=== PATIENT | female | born 1965 | race Caucasian/White ===

== ENCOUNTER 2017-03-04 21:30 | Emergency (ER) | payer MEDICARE, MEDICAID ==
[~2017-03-04] VITALS: Ht 162.6 cm; Wt 113.4 kg
[2017-03-04] MEDS ORDERED: BACL10TA PO (21:45)
[2017-03-04] MEDS ORDERED: LEVO175T5 PO (21:45)
[2017-03-04] MEDS ORDERED: OMEP20CA12 PO (21:45)
[2017-03-04] MEDS ORDERED: HYDR-3816 PO (21:45)
[2017-03-04] MEDS ORDERED: DULO60CA58 PO (21:45)
[2017-03-04] MEDS ORDERED: RT-ALBUINH INH (21:45)
[2017-03-04] MEDS ORDERED: ATOR40TA70 PO (21:45)
[2017-03-04] MEDS ORDERED: DILT240C87 PO (21:45)
[2017-03-04] MEDS ORDERED: LISI40TA PO (21:45)
[2017-03-04] MEDS ORDERED: HYDR12.5 PO (21:45)
[2017-03-04] MEDS ORDERED: TIOT18CA2 INH (21:45)
[2017-03-04] MEDS ORDERED: METO50TA2 PO (21:45)
[2017-03-04] MEDS ORDERED: MELO7.5T46 PO (21:45)
[2017-03-04] MEDS ORDERED: BUDE10.2 INH (21:45)
--- NOTE | 2017-03-04 23:15 | ED Lower Extremity ---
General Chief Complaint: Lower Extremity Stated Complaint: L LEG PAIN Nursing Triage Note: C/O POSTERIOR LEFT KNEE PAIN X3HRS. NO KNOWN INJURY Nursing Sepsis Screen: No Definite Risk Source: patient Exam Limitations: no limitations History of Present Illness Time seen by provider: 21:53 Initial Comments Patient presents with complaint of posterior left knee pain for about the past 3 hours. She denies any injury or strain. She was walking in the house at the time of onset. She denies any prior problems with this knee. Allergies and Home Medications Allergies Coded Allergies: Penicillins (Verified Allergy, Unknown, 03/04/17) Home Medications Albuterol Sulfate 1 Puff Puff, 1 INH INH UD, #18 (Reported) Atorvastatin Calcium 40 Mg Tablet, 1 TAB PO UD, #90 (Reported) Baclofen 10 Mg Tablet, 1 TAB PO UD, #30 (Reported) Budesonide/Formoterol Fumarate 10.2 Gm Hfa.aer.ad, 1 INH INH UD, #31 (Reported) Diltiazem HCl 240 Mg Capsule.er, 1 CAP PO UD, #90 (Reported) Duloxetine HCl 60 Mg Capsule.dr, 1 CAP PO UD, #90 (Reported) Hydrochlorothiazide 12.5 Mg Capsule, 1 CAP PO UD, #90 (Reported) Hydrocodone/Acetaminophen 1 Each Tablet, 1 TAB PO UD, #120 (Reported) Levothyroxine Sodium 175 Mcg Tablet, 1 TAB PO UD, #30 (Reported) Lisinopril 40 Mg Tablet, 1 TAB PO UD, #90 (Reported) Meloxicam 7.5 Mg Tablet, 1 TAB PO UD, #90 (Reported) Metoprolol Tartrate 50 Mg Tablet, 1 TAB PO UD, #270 (Reported) Omeprazole 20 Mg Capsule.dr, 1 CAP PO UD, #90 (Reported) Tiotropium [place] 1 Inh Aerp, 1 INH INH UD, #90 (Reported) Constitutional: no symptoms reported EENTM: no symptoms reported Respiratory: no symptoms reported Cardiovascular: no symptoms reported Gastrointestinal: no symptoms reported Genitourinary: no symptoms reported : No Musculoskeletal: see HPI Skin: no symptoms reported Psychiatric/Neurological: No Symptoms Reported Past Zjjcabx-Qrgutl-Jggqfz Hx Patient Social History Alcohol Use: Denies Use Recreational Drug Use: No Smoking Status: Never a Smoker 2nd Hand Smoke Exposure: No Recent Foreign Travel: No Contact w/Someone Who Travel: No Recent Infectious Disease Expo: No Recent Hopitalizations: No Immunizations Up To Date Tetanus Booster (TDap): Unknown Seasonal Allergies Seasonal Allergies: No Surgeries HX Surgeries: Yes (HERNIA, FOOT) Surgeries: Gallbladder, Hysterectomy, Orthopedic Respiratory Hx Respiratory Disorders: Yes (pulmonary hypertension) Respiratory Disorders: Asthma Cardiovascular Hx Cardiac Disorders: Yes (pulmonary hypertension, tachycardia) Cardiac Disorders: High Cholesterol, Hypertension Neurological Hx Neurological Disorders: Yes Neurological Disorders: Neuropathy (right lower extremity) Reproductive System : No 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 Genitourinary Hx Genitourinary Disorders: No Gastrointestinal Hx Gastrointestinal Disorders: Yes Gastrointestinal Disorders: Gastroesophageal Reflux Musculoskeletal Hx Musculoskeletal Disorders: Yes Musculoskeletal Disorders: Arthritis, Fibromyalgia Endocrine Hx Endocrine Disorders: Yes Endocrine Disorders: Hypothyroidsim HEENT HX ENT Disorders: No Cancer Hx Cancer: No Psychosocial Hx Psychiatric Problems: Yes Behavioral Health Disorders: Anxiety Integumentary HX Skin/Integumentary Disorder: No Blood Transfusions Hx Blood Disorders: No Physical Exam Vital Signs Vital Sign - Last 12Hours 03/04/17 03/04/17 21:45 23:20 Temp 97.7 Pulse 127 Resp 18 B/P (MAP) 177/103 Pulse Ox 97 O2 Delivery Room Air O2 Flow Rate 2.00 Capillary Refill : Less Than 3 Seconds General Appearance: WD/WN, no apparent distress, obese HEENT: PERRL/EOMI, normal ENT inspection Cardiovascular: regular rate, rhythm, no edema, no murmur Respiratory: lungs clear, normal breath sounds, no respiratory distress, no accessory muscle use Hips: left hip normal inspection Legs: left leg other (pain also present in the proximal calf with home and test. 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 Report not available. No acute abnormalities appreciated. Diagonstic Imaging: Ultrasound Plain Films/CT/US/NM/MRI: leg Comments Ultrasound of the left leg report reviewed. No evidence of DVT or Valdez's cyst. Departure Impression Impression: Primary Impression: Posterior left knee pain Disposition: HOME, SELF-CARE Condition: Improved Departure-Patient Inst. Decision time for Depature: 23:05 Referrals: NO,LOCAL PHYSICIAN (PCP/Family) Primary Care Physician Patient Instructions: NO INSTRUCTIONS GIVEN Add. Discharge Instructions: You may continue taking hydrocodone for pain. Rest, elevation, and icing in 20 minute intervals may also be helpful. Follow-up with your primary care provider if not improving over the next couple of days. All discharge instructions reviewed with patient and/or family. Voiced understanding. EVY VU MD Mar 04, 2017 23:14
[2017-03-04 23:20] VITALS: BP 135/66
--- NOTE | 2017-03-05 08:03 | Diagnostic Imaging Report ---
PROCEDURE: US left lower extremity venous. TECHNIQUE: Multiple real-time grayscale images were obtained over the left lower extremity in various projections. Additional duplex Doppler and color Doppler images were also obtained. INDICATION: Left leg pain. COMPARISON: None. TECHNIQUE: The left lower extremity deep venous system was interrogated from the common femoral vein through the popliteal vein. These images were assessed for grayscale appearance, color and spectral Doppler blood flow, compression, and augmentation. FINDINGS: There is no evidence of intraluminal filling defect. Normal compression and augmentation is noted throughout. Soft tissues are unremarkable. IMPRESSION: 1. No sonographic evidence of deep venous thrombosis in the left lower extremity. Dictated by: Dictated on workstation # [id number]
--- NOTE | 2017-03-05 08:06 | Diagnostic Imaging Report ---
3 views of the left knee. INDICATION: Left knee pain. FINDINGS: There is no fracture, dislocation, or radiopaque foreign body. There is mild tricompartment osteophyte formation seen. No significant effusion is identified. IMPRESSION: Mild osteoarthritis. Dictated by: Dictated on workstation # [id number]
== END 2017-03-04 23:17 | disposition home or self-care (01) ==
LOC: EDUNIT# 21:30 → ER 21:31
DX: M79.662 Pain in left lower leg (principal); I10 Essential (primary) hypertension; Z79.899 Other long term (current) drug therapy
CPT/HCPCS: 73562; 99283

== ENCOUNTER → 2018-06-09 | Outpatient (CLI) | payer MEDICARE, MEDICAID ==
[~2018-06-09] MED LIST: ATOR40TA70 PO; BACL10TA PO; BUDE10.2 INH; DILT240C87 PO; DULO60CA58 PO; HYDR-34 PO; HYDR12.5 PO; LEVO175T5 PO; LISI40TA PO; MELO7.5T46 PO; METO50TA15 PO; OMEP20CA12 PO; RT-ALBUINH INH; TIOT18CA2 INH
[2018-06-09 16:23] LABS: BASOPHILS % (AUTO) 0 % (0-10); EOSINOPHILS # (AUTO) 0.1 10^3/uL (0.0-0.3); EOSINOPHILS % (AUTO) 2 % (0-10); HEMATOCRIT 28 % (35-52); HEMOGLOBIN 8.6 G/DL (11.5-16.0); LYMPHOCYTES # (AUTO) 1.4 X 10^3 (1.0-4.0); LYMPHOCYTES % (AUTO) 25 % (12-44); MEAN CORPUSCULAR HEMOGLOBIN 30 PG (25-34); MEAN CORPUSCULAR HGB CONC 30 G/DL (32-36); MEAN CORPUSCULAR VOLUME 99 FL (80-99); MEAN PLATELET VOLUME 11.1 FL (7.4-10.4); MONOCYTES # (AUTO) 0.5 X 10^3 (0.0-1.0); MONOCYTES % (AUTO) 9 % (0-12); NEUTROPHILS # (AUTO) 3.6 X 10^3 (1.8-7.8); NEUTROPHILS % (AUTO) 65 % (42-75); PLATELET COUNT 275 10^3/uL (130-400); RED BLOOD COUNT 2.86 10^6/uL (4.35-5.85); WHITE BLOOD COUNT 5.5 10^3/uL (4.3-11.0)
[2018-06-09 16:36] LABS: ALANINE AMINOTRANSFERASE 40 U/L (0-55); ALBUMIN 2.5 GM/DL (3.2-4.5); ALKALINE PHOSPHATASE 115 U/L (40-136); BILIRUBIN,TOTAL 0.2 MG/DL (0.1-1.0); BUN/CREATININE RATIO 20; CALCIUM 8.4 MG/DL (8.5-10.1); CARBON DIOXIDE 27 MMOL/L (21-32); CHLORIDE 102 MMOL/L (98-107); CREATININE SERUM 0.65 MG/DL (0.60-1.30); GFR ESTIMATED > 60; GLUCOSE 103 MG/DL (70-105); POTASSIUM 3.8 MMOL/L (3.6-5.0); SODIUM 138 MMOL/L (135-145); TOTAL PROTEIN 6.6 GM/DL (6.4-8.2)
== END ==
LOC: HH 08:00
PROVIDERS: ATTEND Internal Medicine
DX: N73.9 Female pelvic inflammatory disease, unspecified (principal)
CPT/HCPCS: 80053; 85025

== ENCOUNTER → 2018-06-16 | Outpatient (CLI) | payer MEDICARE, MEDICAID ==
[2018-06-16 14:28] LABS: BASOPHILS % (AUTO) 0 % (0-10); EOSINOPHILS # (AUTO) 0.1 10^3/uL (0.0-0.3); EOSINOPHILS % (AUTO) 3 % (0-10); HEMATOCRIT 29 % (35-52); HEMOGLOBIN 8.6 G/DL (11.5-16.0); LYMPHOCYTES # (AUTO) 1.1 X 10^3 (1.0-4.0); LYMPHOCYTES % (AUTO) 24 % (12-44); MEAN CORPUSCULAR HEMOGLOBIN 29 PG (25-34); MEAN CORPUSCULAR HGB CONC 29 G/DL (32-36); MEAN CORPUSCULAR VOLUME 99 FL (80-99); MEAN PLATELET VOLUME 10.3 FL (7.4-10.4); MONOCYTES # (AUTO) 0.3 X 10^3 (0.0-1.0); MONOCYTES % (AUTO) 7 % (0-12); NEUTROPHILS # (AUTO) 3.1 X 10^3 (1.8-7.8); NEUTROPHILS % (AUTO) 67 % (42-75); PLATELET COUNT 247 10^3/uL (130-400); RED BLOOD COUNT 2.97 10^6/uL (4.35-5.85); RED CELL DISTRIBUTION WIDTH 14.9 % (10.0-14.5); WHITE BLOOD COUNT 4.6 10^3/uL (4.3-11.0)
[2018-06-16 14:47] LABS: ALANINE AMINOTRANSFERASE 18 U/L (0-55); ALBUMIN 2.6 GM/DL (3.2-4.5); ALKALINE PHOSPHATASE 96 U/L (40-136); BILIRUBIN,TOTAL 0.3 MG/DL (0.1-1.0); BUN/CREATININE RATIO 19; CALCIUM 8.6 MG/DL (8.5-10.1); CARBON DIOXIDE 28 MMOL/L (21-32); CHLORIDE 107 MMOL/L (98-107); CREATININE SERUM 0.62 MG/DL (0.60-1.30); GFR ESTIMATED > 60; GLUCOSE 84 MG/DL (70-105); POTASSIUM 3.4 MMOL/L (3.6-5.0); SODIUM 141 MMOL/L (135-145); TOTAL PROTEIN 6.7 GM/DL (6.4-8.2)
== END ==
LOC: HH 08:00
PROVIDERS: ATTEND Internal Medicine
DX: N73.9 Female pelvic inflammatory disease, unspecified (principal)
CPT/HCPCS: 80053; 85025

== ENCOUNTER → 2018-06-23 | Outpatient (CLI) | payer MEDICARE, MEDICAID ==
[2018-06-23 17:47] LABS: BASOPHILS % (AUTO) 0 % (0-10); EOSINOPHILS # (AUTO) 0.2 10^3/uL (0.0-0.3); EOSINOPHILS % (AUTO) 4 % (0-10); HEMATOCRIT 29 % (35-52); HEMOGLOBIN 8.9 G/DL (11.5-16.0); LYMPHOCYTES # (AUTO) 1.5 X 10^3 (1.0-4.0); LYMPHOCYTES % (AUTO) 33 % (12-44); MEAN CORPUSCULAR HEMOGLOBIN 29 PG (25-34); MEAN CORPUSCULAR HGB CONC 30 G/DL (32-36); MEAN CORPUSCULAR VOLUME 96 FL (80-99); MEAN PLATELET VOLUME 10.3 FL (7.4-10.4); MONOCYTES # (AUTO) 0.4 X 10^3 (0.0-1.0); MONOCYTES % (AUTO) 9 % (0-12); NEUTROPHILS # (AUTO) 2.5 X 10^3 (1.8-7.8); NEUTROPHILS % (AUTO) 54 % (42-75); PLATELET COUNT 276 10^3/uL (130-400); RED BLOOD COUNT 3.05 10^6/uL (4.35-5.85); RED CELL DISTRIBUTION WIDTH 14.3 % (10.0-14.5); WHITE BLOOD COUNT 4.6 10^3/uL (4.3-11.0)
[2018-06-23 18:07] LABS: ALANINE AMINOTRANSFERASE 13 U/L (0-55); ALBUMIN 2.5 GM/DL (3.2-4.5); ALKALINE PHOSPHATASE 78 U/L (40-136); BILIRUBIN,TOTAL < 0.1 MG/DL (0.1-1.0); BUN/CREATININE RATIO 16; CALCIUM 8.5 MG/DL (8.5-10.1); CARBON DIOXIDE 30 MMOL/L (21-32); CHLORIDE 104 MMOL/L (98-107); CREATININE SERUM 0.62 MG/DL (0.60-1.30); GFR ESTIMATED > 60; GLUCOSE 98 MG/DL (70-105); POTASSIUM 3.6 MMOL/L (3.6-5.0); SODIUM 140 MMOL/L (135-145); TOTAL PROTEIN 6.4 GM/DL (6.4-8.2)
== END ==
LOC: HH 08:00
PROVIDERS: ATTEND Family Medicine
DX: N73.9 Female pelvic inflammatory disease, unspecified (principal)
CPT/HCPCS: 80053; 85025

== ENCOUNTER → 2019-05-12 | Outpatient (CLI) | payer MEDICARE, MEDICAID ==
[~2019-05-12] MED LIST changes: +CATHETER FLUSH 10 ML SYR IV PRN; +DIATRIZOATE MEGLUM/SODIUM 37% 120 ML (GASTROGRAFIN) PO ONE; +HOLD METFORMIN - RECEIVED CONTRAST 20 ML VIAL IV SCH; +IOHEXOL 350 MG/ML 100 ML (OMNIPAQUE 350) VIAL IV ONE; +NS 100 ML (IVPB) BAG IV ONE
[2019-05-12 09:45] LABS: BASOPHILS % (AUTO) 0 % (0-10); EOSINOPHILS # (AUTO) 0.2 10^3/uL (0.0-0.3); EOSINOPHILS % (AUTO) 3 % (0-10); HEMATOCRIT 43 % (35-52); LYMPHOCYTES # (AUTO) 2.6 X 10^3 (1.0-4.0); LYMPHOCYTES % (AUTO) 32 % (12-44); MEAN CORPUSCULAR HEMOGLOBIN 29 PG (25-34); MEAN CORPUSCULAR HGB CONC 30 G/DL (32-36); MEAN CORPUSCULAR VOLUME 96 FL (80-99); MEAN PLATELET VOLUME 9.8 FL (7.4-10.4); MONOCYTES # (AUTO) 0.6 X 10^3 (0.0-1.0); MONOCYTES % (AUTO) 8 % (0-12); NEUTROPHILS # (AUTO) 4.6 X 10^3 (1.8-7.8); NEUTROPHILS % (AUTO) 57 % (42-75); PLATELET COUNT 282 10^3/uL (130-400); RED CELL DISTRIBUTION WIDTH 13.8 % (10.0-14.5); WHITE BLOOD COUNT 8.1 10^3/uL (4.3-11.0)
[2019-05-12 09:56] LABS: POTASSIUM 3.8 MMOL/L (3.6-5.0); SODIUM 139 MMOL/L (135-145)
[2019-05-12 09:57] LABS: ALANINE AMINOTRANSFERASE 12 U/L (0-55); ALBUMIN 3.6 GM/DL (3.2-4.5); ALKALINE PHOSPHATASE 111 U/L (40-136); BILIRUBIN,TOTAL 0.3 MG/DL (0.1-1.0); BUN/CREATININE RATIO 17; CARBON DIOXIDE 29 MMOL/L (21-32); CHLORIDE 101 MMOL/L (98-107); CREATININE SERUM 0.77 MG/DL (0.60-1.30); GFR ESTIMATED > 60; GLUCOSE 87 MG/DL (70-105); TOTAL PROTEIN 8.3 GM/DL (6.4-8.2)
--- NOTE | 2019-05-13 16:57 | Diagnostic Imaging Report ---
PROCEDURE: CT chest, abdomen, and pelvis with contrast. TECHNIQUE: Multiple contiguous axial images were obtained through the chest, abdomen, and pelvis after the administration of intravenous contrast. Auto Exposure Controls were utilized during the CT exam to meet ALARA standards for radiation dose reduction. DATE: May 12, 2019. COMPARISON: CT chest, abdomen, and pelvis of December 19, 2018. INDICATION: 53-year-old female, history of cervical cancer. FINDINGS: The previously noted right lower lobe pulmonary nodule on prior axial image 24 on series 2 is not seen on the current exam. There is no currently identified pulmonary nodule or lung mass. There is no pneumothorax. There is no pleural effusion. There are mild upper lobe changes of emphysema. There are minimal linear opacities in the left lower lobe, likely relating to atelectasis. The more central airways are patent. There is no identified large central pulmonary embolus. The main pulmonary artery is normal in caliber. The heart is not enlarged. There is no pericardial effusion. There is no identified abnormally enlarged mediastinal, hilar, or axillary lymph node which meets CT size criteria for adenopathy. There is a 6 mm low-attenuation lesion in the liver on axial image 80 which is too small to characterize. This is unchanged since the comparison exam. There is a low-attenuation lesion in the right lobe of the liver on axial image 97 which measures 3.1 cm in size with internal attenuation diagnostic for a benign hepatic cyst. There is an adjacent 4 mm low-attenuation lesion in the liver which is too small to characterize and unchanged since the comparison exam. There is also a 3 mm lesion in the liver on axial image 118 which is too small to characterize. The main, right, and left portal veins are patent. The patient is status post cholecystectomy. There is no biliary ductal dilation. The main pancreatic duct is not abnormally dilated. The pancreatic parenchyma is unremarkable. The spleen is normal in size. The adrenal glands are unremarkable. There are several nonobstructing renal stones bilaterally. Two nonobstructing renal stones are present on the left. The urinary bladder is absent. There are small bowel sutures which may relate to a neobladder. Recommend correlation with past surgical history. There is a right abdominal ostomy. There is mild prominence of the right renal pelvis without matt hydronephrosis. There is an exophytic low-attenuation right renal lesion measuring 12 mm in size on coronal image 56 which is diagnostic for a benign renal cyst based on internal attenuation value. There are post operative changes of distal colonic resection. There is a left sided colostomy. There is a segment of small bowel herniating through the ostomy site without associated obstruction. There is no free intraperitoneal air. There is no drainable fluid collection. There is no free pelvic fluid. There are atherosclerotic calcifications. There is no identified abnormally enlarged lymph node in the abdomen or pelvis which meets CT size criteria for adenopathy. The uterus is not seen and likely surgically absent. There are degenerative changes of the spine. There is no identified bone lesion suspicious for bone metastasis. IMPRESSION: 1. The previously noted right lower lobe pulmonary nodule has resolved. No current pulmonary nodule or lung mass. 2. Benign hepatic cyst and benign right renal cysts with additional subcentimeter low-attenuation liver lesions which are too small to characterize but are unchanged since the comparison exam. 3. Bilateral nonobstructing renal stones. There is mild prominence of the right renal pelvis without matt hydronephrosis. 4. Segment of small bowel herniating through the left sided colostomy defect without associated obstruction or other complication. Dictated on workstation # [id number]
== END ==
LOC: RAD FS 09:17
PROVIDERS: ATTEND Internal Medicine Hematology & Oncology
DX: C53.9 Malignant neoplasm of cervix uteri, unspecified (principal); N28.1 Cyst of kidney, acquired; K76.89 Other specified diseases of liver; N20.0 Calculus of kidney; K46.9 Unspecified abdominal hernia without obstruction or gangrene; Z90.6 Acquired absence of other parts of urinary tract; Z90.49 Acquired absence of other specified parts of digestive tract; Z98.890 Other specified postprocedural states
CPT/HCPCS: 36415; 71260; 74177; 80053; 85025

== ENCOUNTER 2019-05-18 03:50 | Inpatient (IN) | payer MEDICARE, MEDICAID ==
[~2019-05-18] VITALS: Ht 162.6 cm; Wt 139.9 kg
[2019-05-18] VITALS (7 sets, daily range): BP systolic 115–146; BP diastolic 63–91
[~2019-05-18 03:50] MED LIST changes: -CATHETER FLUSH 10 ML SYR IV PRN; -DIATRIZOATE MEGLUM/SODIUM 37% 120 ML (GASTROGRAFIN) PO ONE; -HOLD METFORMIN - RECEIVED CONTRAST 20 ML VIAL IV SCH; -IOHEXOL 350 MG/ML 100 ML (OMNIPAQUE 350) VIAL IV ONE; -NS 100 ML (IVPB) BAG IV ONE
--- NOTE | 2019-05-18 04:00 | NUR ---
0341. pt here by rescue from home. ems tx includes pl 18 g l acf, no monitor, no o2, drugs morphine , transport. pt c/o abd pain with recent h/o kidney stones. currently pt alert gcs 15. abd pain rating 3. pt motions her hands to bilateral mid abd for pain and says pain radiates to bilateral back. pt has several medical problems and is already on vicodin 7.5 mg and pain inc. last noc. pt appears obese and over weight. pt denies n/v/d. denies fever. denies dyspnea and no acute sighns of dyspnea noted. pt relates uses o2 at noc. lungs cta bilaterally. abd with no pulsating massess noted. pt had colostomy bag left abd and urostomy bag right abd tech getting labs from ems iv. done howard pt at [id number]
[2019-05-18] MEDS ORDERED: NS IV 500 ML 500 ML IV ONE (04:08)
[2019-05-18 04:14] LABS: BASOPHILS % (AUTO) 0 % (0-10); EOSINOPHILS # (AUTO) 0.2 10^3/uL (0.0-0.3); EOSINOPHILS % (AUTO) 3 % (0-10); HEMATOCRIT 41 % (35-52); HEMOGLOBIN 12.4 G/DL (11.5-16.0); LYMPHOCYTES % (AUTO) 31 % (12-44); MEAN CORPUSCULAR HEMOGLOBIN 29 PG (25-34); MEAN CORPUSCULAR HGB CONC 30 G/DL (32-36); MEAN CORPUSCULAR VOLUME 95 FL (80-99); MEAN PLATELET VOLUME 9.9 FL (7.4-10.4); MONOCYTES # (AUTO) 0.6 X 10^3 (0.0-1.0); MONOCYTES % (AUTO) 9 % (0-12); NEUTROPHILS # (AUTO) 3.8 X 10^3 (1.8-7.8); NEUTROPHILS % (AUTO) 57 % (42-75); PLATELET COUNT 262 10^3/uL (130-400); RED CELL DISTRIBUTION WIDTH 14.3 % (10.0-14.5); WHITE BLOOD COUNT 6.6 10^3/uL (4.3-11.0)
[2019-05-18 04:25] LABS: ALANINE AMINOTRANSFERASE 13 U/L (0-55); ALBUMIN 3.5 GM/DL (3.2-4.5); ALKALINE PHOSPHATASE 98 U/L (40-136); BILIRUBIN,TOTAL 0.2 MG/DL (0.1-1.0); BUN/CREATININE RATIO 13; CALCIUM 8.6 MG/DL (8.5-10.1); CARBON DIOXIDE 29 MMOL/L (21-32); CHLORIDE 102 MMOL/L (98-107); CREATININE SERUM 0.91 MG/DL (0.60-1.30); GFR ESTIMATED > 60; GLUCOSE 104 MG/DL (70-105); POTASSIUM 3.8 MMOL/L (3.6-5.0); SODIUM 140 MMOL/L (135-145); TOTAL PROTEIN 7.6 GM/DL (6.4-8.2)
--- NOTE | 2019-05-18 04:37 | NUR ---
applied 2/n/c. p ox good tracing dings 88 r/a off and on. pt with no acute sighns of dyspnea
--- NOTE | 2019-05-18 04:39 | ED Abdominal Pain ---
General Chief Complaint: Abdominal/GI Problems Stated Complaint: FLANK PAIN Nursing Triage Note: abd pain recent h/o kidney stones Sepsis Screen: No Definite Risk Source of Information: Patient Exam Limitations: No Limitations History of Present Illness Date Seen by Provider: May 18, 2019 Time Seen by Provider: 03:50 Initial Comments Here with report of abdominal pain that seems to be anterior and radiating to both sides. Patient is worried about kidney stones that she had kidney stones noted on recent exam. She was told that if the stone started moving, she would need stents due to they would not pass the stoma. Patient does have significant abdominal surgery history due to diverting colostomy and urostomy to stomas. Diversions were required secondary to complete pelvic diversion after cervical cancer. Denies fever or chills. Denies changes in urine or stool noted and ostomy bags. She did take her pain medicine as typical tonight and last dose of hydrocodone was at 3 AM. That did not help her increasing pain so EMS was summoned. They did give morphine 4 mg IV and this did help significantly. Arrives with pain of 3 out of 10. Denies nausea or vomiting. Timing/Duration: 12 Hours, Getting Worse Severity/Quality: Moderate, Aching Location: Flank (mid), Other (anterior midline) Radiation: Back (bilateral bilateral) Activities at Onset: None Modifying Factors: Improves With Analgesics Associated Symptoms: Back Pain; No Chest Pain, No Fever/Chills, No Nausea/Vomiting, No Shortness of Air, No Swelling/Mass in Abdomen, No Weakness Allergies and Home Medications Allergies Coded Allergies: Penicillins (Verified Allergy, Unknown, 03/04/17) Home Medications Albuterol Sulfate 1 Puff Puff, 1 INH INH UD, (Reported) Atorvastatin Calcium 40 Mg Tablet, 1 TAB PO UD, (Reported) Baclofen 10 Mg Tablet, 1 TAB PO UD, (Reported) Budesonide/Formoterol Fumarate 10.2 Gm Hfa.aer.ad, 1 INH INH UD, (Reported) Diltiazem HCl 240 Mg Capsule.er, 1 CAP PO UD, (Reported) Duloxetine HCl 60 Mg Capsule.dr, 1 CAP PO UD, (Reported) Hydrochlorothiazide 12.5 Mg Capsule, 1 CAP PO UD, (Reported) Hydrocodone Bit/Acetaminophen 1 Each Tablet, 1 TAB PO UD, (Reported) Levothyroxine Sodium 175 Mcg Tablet, 1 TAB PO UD, (Reported) Lisinopril 40 Mg Tablet, 1 TAB PO UD, (Reported) Meloxicam 7.5 Mg Tablet, 1 TAB PO UD, (Reported) Metoprolol Tartrate 50 Mg Tablet, 1 TAB PO UD, (Reported) Omeprazole 20 Mg Capsule.dr, 1 CAP PO UD, (Reported) Tiotropium [place] 1 Inh Aerp, 1 INH INH UD, (Reported) Patient Home Medication List Home Medication List Reviewed: Yes Review of Systems Review of Systems Constitutional: see HPI EENTM: No Symptoms Reported Respiratory: No Symptoms Reported Cardiovascular: No Symptoms Reported Gastrointestinal: See HPI, Abdominal Pain Genitourinary: See HPI, Flank Pain Musculoskeletal: back pain; No muscle weakness All Other Systems Reviewed Negative Unless Noted: Yes Past Khkgdjp-Meoteq-Ecyewr Hx Past Med/Social Hx: Reviewed Nursing Past Med/Soc Hx Patient Social History Alcohol Use: Denies Use Recreational Drug Use: No Smoking Status: Never a Smoker 2nd Hand Smoke Exposure: No Recent Foreign Travel: No Contact w/Someone Who Travel: No Recent Infectious Disease Expo: No Recent Hopitalizations: No Physical Abuse: No Sexual Abuse: No Immunizations Up To Date Tetanus Booster (TDap): Unknown Seasonal Allergies Seasonal Allergies: No Past Medical History Surgeries: Yes (HERNIA, FOOT) Abdominal, Gallbladder, Hysterectomy, Orthopedic Respiratory: Yes (pulmonary hypertension) Asthma Currently Using CPAP: No Currently Using BIPAP: No Cardiac: Yes (pulmonary hypertension, tachycardia) High Cholesterol, Hypertension Neurological: Yes Neuropathy Reproductive Disorders: 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 oz. 113.633325ih; BMI Method:Stated General Appearance: WD/WN, no apparent distress HEENT: PERRL/EOMI, pharynx normal Neck: full range of motion, supple Respiratory: lungs clear, normal breath sounds Cardiovascular: regular rate, rhythm, no murmur Peripheral Pulses: 2+ Dorsalis Pedis (R), 2+ Left Dors-Pedis (L), 2+ Radial Pulses (R), 2+ Radial Pulses (L) Gastrointestinal: soft, tenderness (mid and lateral abdomen across the middle.) Extremities: non-tender, normal inspection Back: normal inspection, no CVA tenderness, no vertebral tenderness Neurologic/Psychiatric: alert, oriented x 3 Skin: normal color, warm/dry Progress/Results/Core Measures Results/Orders Lab Results Laboratory Tests Test 05/18/19 03:50 Range/Units White Blood Count 6.6 4.3-11.0 10^3/uL Red Blood Count 4.29 L 4.35-5.85 10^6/uL Hemoglobin 12.4 11.5-16.0 G/DL Hematocrit 41 35-52 % Mean Corpuscular Volume 95 80-99 FL Mean Corpuscular Hemoglobin 29 25-34 PG Mean Corpuscular Hemoglobin Concent 30 L 32-36 G/DL Red Cell Distribution Width 14.3 10.0-14.5 % Platelet Count 262 130-400 10^3/uL Mean Platelet Volume 9.9 7.4-10.4 FL Neutrophils (%) (Auto) 57 42-75 % Lymphocytes (%) (Auto) 31 12-44 % Monocytes (%) (Auto) 9 0-12 % Eosinophils (%) (Auto) 3 0-10 % Basophils (%) (Auto) 0 0-10 % Neutrophils # (Auto) 3.8 1.8-7.8 X 10^3 Lymphocytes # (Auto) 2.0 1.0-4.0 X 10^3 Monocytes # (Auto) 0.6 0.0-1.0 X 10^3 Eosinophils # (Auto) 0.2 0.0-0.3 10^3/uL Basophils # (Auto) 0.0 0.0-0.1 10^3/uL Sodium Level 140 135-145 MMOL/L Potassium Level 3.8 3.6-5.0 MMOL/L Chloride Level 102 98-107 MMOL/L Carbon Dioxide Level 29 21-32 MMOL/L Anion Gap 9 5-14 MMOL/L Blood Urea Nitrogen 12 7-18 MG/DL Creatinine 0.91 0.60-1.30 MG/DL Estimat Glomerular Filtration Rate > 60 BUN/Creatinine Ratio 13 Glucose Level 104 70-105 MG/DL Calcium Level 8.6 8.5-10.1 MG/DL Corrected Calcium 9.0 8.5-10.1 MG/DL Total Bilirubin 0.2 0.1-1.0 MG/DL Aspartate Amino Transf (AST/SGOT) 13 5-34 U/L Alanine Aminotransferase (ALT/SGPT) 13 0-55 U/L Alkaline Phosphatase 98 40-136 U/L C-Reactive Protein High Sensitivity 1.49 H 0.00-0.50 MG/DL Total Protein 7.6 6.4-8.2 GM/DL Albumin 3.5 3.2-4.5 GM/DL My Orders Orders - XIANG BE MD Cbc With Automated Diff (05/18/19 04:08) Comprehensive Metabolic Panel (05/18/19 04:08) Hs C Reactive Protein (05/18/19 04:08) Ed Iv/Invasive Line Start (05/18/19 04:08) Ns Iv 500 Ml (Sodium Chloride 0.9%) (05/18/19 04:08) Ct Abd/Pelvis Wo(Kidney Stone) (05/18/19 04:33) Morphine Injection (Morphine Injection (05/18/19 05:45) Medications Given in ED Current Medications Medications Dose Ordered Sig/Minh Route Start Time Stop Time Status Last Admin Dose Admin Sodium Chloride 500 ml @ 0 mls/hr Q0M ONCE IV 05/18/19 04:08 05/18/19 04:09 DC 05/18/19 04:18 1,000 MLS/HR Vital Signs/I&O 05/18/19 05/18/19 04:00 05:21 Temp 97.4 97.8 Pulse 88 80 Resp 16 12 B/P (MAP) 196/118 (144) 146/91 (109) Pulse Ox 92 96 O2 Delivery Room Air Nasal Cannula O2 Flow Rate 2.00 Blood Pressure Mean: 144 Progress Progress Note : Progress Note Seen and evaluated. IV by EMS. Labs ordered. Records reviewed. She did have CT several days ago she has significant intra-abdominal surgeries and known history of kidney stones. Given that she may require surgical intervention for kidney stones, we will go ahead and repeat CT now. Monitor patient. 0530: CT shows moderate small bowel obstruction. I discussed the case with Dr. Ramires. He will see the patient in consult. Admit, inpatient status to [facility]. I did discuss the case with Dr. Francisco at 0533 and she accepts patient for admission. Patient will be nothing by mouth and on IV fluids, pain meds and nausea meds. Discussed with patient who agrees. I did discuss the potential for need of NG tube. Patient like to avoid that at this point if possible. We will hold but she understands it may be required. Repeat morphine 4 mg IV times one now. Diagnostic Imaging Diagonstic Imaging: CT Plain Films/CT/US/NM/MRI: abdomen, pelvis Comments Findings concerning for mild to moderate closed loop small bowel obstruction. Currently negative for pneumatosis or pneumoperitoneum. Surgical consultation recommended. Departure Communication (Admissions) Time/Spoke to Admitting Phy: 05:33 Time/Spoke to Consulting Phy: 05:30 Impression Primary Impression: Small bowel obstruction Disposition: ADMITTED INPATIENT Condition: Stable Admissions Decision to Admit Reason: Admit from ER (General) Decision to Admit/Date: May 18, 2019 Time/Decision to Admit Time: 05:30 Departure-Patient Inst. Referrals: [facility]/JEFF (PCP) Primary Care Physician ANALI DUFF (Family) Primary Care Physician XIANG BE MD May 18, 2019 04:39
--- NOTE | 2019-05-18 05:22 | NUR ---
pt remains alert gcs 15. family x 1 remains in the room. pt still c/o abd pain rating 5. denies nausea and no v/d noted in er visit thus far. denies dyspnea and no acute sighns of dyspnea noted though pt relates h/o sleep apnea. 50 ml left in bolus i will danna it off now.
--- NOTE | 2019-05-18 05:22 | NUR ---
with initial assess ment normal lloking bm in colostomy bag noted for area its in.
[2019-05-18] MEDS ORDERED: morphine INJ 10 MG/ML 1ML (SYR OR VIAL) IVP ONE (05:45)
--- NOTE | 2019-05-18 05:51 | NUR ---
i called jody rick for admit bed short while ago
--- NOTE | 2019-05-18 06:19 | NUR ---
i called report to admit nurse qi
--- NOTE | 2019-05-18 06:23 | NUR ---
someone or i will take pt to admit room teressa
--- NOTE | 2019-05-18 06:35 | NUR ---
CHELSEA GUTIERREZ admitted to room 423-1, with an admitting diagnosis of SBO , on 05/18/19 from ED via CART, accompanied by STAFF. CHELSEA GUTIERREZ introduced to surroundings, call light, bed controls, phone, TV, temperature control, lights, meal times, smoking policy, visitor policy, side rail policy, bathrooms and showers. Patient Rights given to patient in the handbook.CHELSEA GUTIERREZ verbalizes understanding that [facility] is not responsible for the loss or damage to any personal effects or valuables that are kept in the patients posession during their hospitalization.
[2019-05-18] MEDS ORDERED: NS IV 1000 ML 1,000 ML ONE (06:39)
--- NOTE | 2019-05-18 06:42 | Diagnostic Imaging Report ---
PROCEDURE: CT urinary tract, rule out kidney stone. TECHNIQUE: Multiple contiguous axial images were obtained through the abdomen and pelvis without the use of intravenous contrast. Auto Exposure Controls were utilized during the CT exam to meet ALARA standards for radiation dose reduction. INDICATION: Flank pain. COMPARISON: CT chest, abdomen and pelvis 05/12/2019. FINDINGS: Again seen are bilateral ostomies. There are few new dilated loops of small bowel centrally within the abdomen. The more proximal and distal small bowel loops are decompressed. Normal caliber colon. No pneumatosis or portal venous gas. No free intraperitoneal air or fluid. Lung bases are clear. Well-circumscribed low attenuation lesions in the liver are stable, presumed cyst. Cholecystectomy. The pancreas, spleen, adrenals are negative. Postoperative changes of bilateral ileal conduit urinary diversion. Stable caliber of the renal collecting system. There are several nonobstructing calyceal tip renal stones in each kidney. No acute osseous findings. IMPRESSION: Dilated loops of small bowel in the midabdomen suspicious for closed loop obstruction. More proximal and distal small bowel loops are decompressed. No pneumatosis or portal venous gas. Stable postoperative findings as above. Report received by Dr. Ascencio confirmed by the interpreting radiologist on 05/18/2019 at 5:22 AM. Dictated by: Dictated on workstation # [id number]
[2019-05-18] MEDS: NS IV 1000 ML 1,000 ML IV SCH ×3 (06:47→20:56)
[2019-05-18] MEDS: ONDANSETRON 4 MG/2 ML (SDV) Z0FRAN IV PRN ×3 (08:23→20:56)
[2019-05-18] MEDS: morphine INJ 4 MG/ML 1 ML (VIAL/SYRINGE) IV PRN ×3 (10:08→20:57)
[2019-05-18] MEDS ORDERED: HYDR-3816 PO (10:40)
[2019-05-18] MEDS ORDERED: HYDR-700 PO (10:46)
[2019-05-18] MEDS ORDERED: NYST60PO TOP (10:46)
--- NOTE | 2019-05-18 10:52 | NUR ---
PATIENT HAD A LIST OF HER MEDICATIONS ON HER COMPUTER. SHE STATES SHE TAKES SIGNIFICANTLY LESS MEDICATIONS NOW THAN SHE HAS IN THE PAST. SHE GETS THEM FILLED AT [facility] BUT ADMITS SHE MISSES DOSES AND IS PAST DUE FOR REFILLS ON SOME. SHE STATES SHE USES NYSTATIN POWDER BID PRN, AND HYDROCODONE PRN WHICH HAVE BEEN RECENTLY FILLED ACCORDING TO THE EXT MED HX. SHE ALSO REPORTS TAKING THE FOLLOWING, I UPDATED THE MED REC WITH THE LAST FILL DATES: 04-02-19 LIPITOR 40MG DAILY #30 08-19-18 HYDROXYZINE HCL 25MG Q8H PRN #60 (ONLY USES PRN) 04-08-18 LEVOTHYROXINE 175MCG DAILY #86 SHE STATES SHE DOES NOT TAKE ANYTHING OTC.
--- NOTE | 2019-05-18 13:16 | History & Physicial (CHS) ---
HPI History of Present Illness: Pt presented to ER due to abdominal and back pain x 1 day that was severe. She denies fever, vomiting, diarrhea or constipation prior to arrival, but has had vomiting since arrival. She has a colostomy and has had stool output today. She has a history of pelvic exenteration due to cervical cancer and has ureteral ileal conduit and colostomy. She also had radiation to her pelvis and has had her gall bladder out. Today she reports her pain is at about 5/10 compared with 10/10 on arrival. Source: patient Date seen by provider: May 18, 2019 Time Seen by Provider: 11:10 Attending Physician Faye Guerra MD PCP Center/[facility] [place] Consult Date of Admission May 18, 2019 at 05:32 Home Medications Home Medications Reviewed patient Home Medication Reconciliation performed by pharmacy medication reconciliations nuclear worker technician and/or nursing. Patients Allergies have been reviewed. Allergies Coded Allergies: Penicillins (Verified Allergy, Unknown, 03/04/17) [id number] Hx Patient Social History Alcohol Use: Denies Use Recreational Drug Use: No Smoking Status: Never a Smoker 2nd Hand Smoke Exposure: No Recent Foreign Travel: No Contact w/other who traveled: No Recent Hopitalizations: No Recent Infectious Disease Expo: No Immunizations Up To Date Tetanus Booster (TDap): Unknown Past Medical History PMHx: Cervical cancer s/p radiation and pelvic exenteration Colostomy in place 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 SurgHx: Right foot surgeries after trauma Cholecystectomy Pelvic exenteration with colostomy and diverting ureteral to ileal ostomy Family Medical History Significant Family History: No Pertinent Family Hx Review of Systems ([facility]) Constitutional: No fever EENTM: no symptoms reported Respiratory: no symptoms reported Cardiovascular: no symptoms reported Gastrointestinal: see HPI Musculoskeletal: no symptoms reported Skin: no symptoms reported Psychiatric/Neurological: No Symptoms Reported Reviewed Test Results Reviewed Test Results Lab Laboratory Tests Test 05/18/19 03:50 Range/Units White Blood Count 6.6 4.3-11.0 10^3/uL Red Blood Count 4.29 L 4.35-5.85 10^6/uL Hemoglobin 12.4 11.5-16.0 G/DL Hematocrit 41 35-52 % Mean Corpuscular Volume 95 80-99 FL Mean Corpuscular Hemoglobin 29 25-34 PG Mean Corpuscular Hemoglobin Concent 30 L 32-36 G/DL Red Cell Distribution Width 14.3 10.0-14.5 % Platelet Count 262 130-400 10^3/uL Mean Platelet Volume 9.9 7.4-10.4 FL Neutrophils (%) (Auto) 57 42-75 % Lymphocytes (%) (Auto) 31 12-44 % Monocytes (%) (Auto) 9 0-12 % Eosinophils (%) (Auto) 3 0-10 % Basophils (%) (Auto) 0 0-10 % Neutrophils # (Auto) 3.8 1.8-7.8 X 10^3 Lymphocytes # (Auto) 2.0 1.0-4.0 X 10^3 Monocytes # (Auto) 0.6 0.0-1.0 X 10^3 Eosinophils # (Auto) 0.2 0.0-0.3 10^3/uL Basophils # (Auto) 0.0 0.0-0.1 10^3/uL Sodium Level 140 135-145 MMOL/L Potassium Level 3.8 3.6-5.0 MMOL/L Chloride Level 102 98-107 MMOL/L Carbon Dioxide Level 29 21-32 MMOL/L Anion Gap 9 5-14 MMOL/L Blood Urea Nitrogen 12 7-18 MG/DL Creatinine 0.91 0.60-1.30 MG/DL Estimat Glomerular Filtration Rate > 60 BUN/Creatinine Ratio 13 Glucose Level 104 70-105 MG/DL Calcium Level 8.6 8.5-10.1 MG/DL Corrected Calcium 9.0 8.5-10.1 MG/DL Total Bilirubin 0.2 0.1-1.0 MG/DL Aspartate Amino Transf (AST/SGOT) 13 5-34 U/L Alanine Aminotransferase (ALT/SGPT) 13 0-55 U/L Alkaline Phosphatase 98 40-136 U/L C-Reactive Protein High Sensitivity 1.49 H 0.00-0.50 MG/DL Total Protein 7.6 6.4-8.2 GM/DL Albumin 3.5 3.2-4.5 GM/DL Radiology CT abdomen/pelvis- ileal conduit, mid-abdomen dilated small bowel loops and nonobstructing bilateral renal stones Physical Exam-(CHC) Physical Exam Vital Signs VS - Last 72 Hours, by Label 05/18/19 05/18/19 05/18/19 05/18/19 04:00 05:21 06:21 06:45 Temp 97.4 97.8 97.8 98.8 Pulse 88 80 80 72 Resp 16 12 12 22 B/P (MAP) 196/118 (144) 146/91 (109) 146/91 (109) 115/69 Pulse Ox 92 96 96 96 O2 Delivery Room Air Nasal Cannula Nasal Cannula Nasal Cannula O2 Flow Rate 2.00 2.00 2.00 05/18/19 05/18/19 08:02 12:05 Temp 97.3 97.3 Pulse 76 76 Resp 20 20 B/P (MAP) 125/63 (83) 125/63 (83) Pulse Ox 97 97 O2 Delivery Nasal Cannula Nasal Cannula O2 Flow Rate 2.00 2.00 Capillary Refill : Less Than 3 Seconds General Appearance: no apparent distress Respiratory: lungs clear Cardiovascular: regular rate, rhythm, no murmur Gastrointestinal: soft, abnormal bowel sounds (hypoactive), other (colostomy with stool in bag and ileal conduit ostomy in place) Extremities: no pedal edema Neurologic/Psychiatric: alert, normal mood/affect Skin: normal color, warm/dry Assessment/Plan Assessment/Plan Admission Status: Inpatient Order (span 2 midnights) Reason for Inpatient Admission: Small bowel obstruction requiring NPO and anticipate 48 hours or more for resolution (1) Small bowel obstruction Status: Acute Assessment & Plan: Bowel rest, NG not placed at this time due to mild symptoms, discussed if vomiting persists will need NG. Surgery consult, appreciate recommendations. (2) Hypertension Status: Chronic Assessment & Plan: May need IV med if BP remains high while unable to take oral. Monitor closely. Qualifiers: Qualified Codes: I10 - Essential (primary) hypertension (3) Hypothyroidism Status: Chronic Assessment & Plan: Hold home levothyoxine while NPO, consider IV if NPO several days. Qualifiers: Qualified Codes: E03.9 - Hypothyroidism, unspecified (4) DVT prophylaxis Status: Acute Assessment & Plan: Enoxaparin Clinical Quality Measures DVT/VTE Risk/Contraindication: Risk Factor Score Per Nursin RFS Level Per Nursing on Admit: 2=Moderate FAYE GUERRA MD May 18, 2019 13:16
[2019-05-18] MEDS: ENOXAPARIN 60 MG/0.6 ML (LOVENOX) SYR SC SCH (13:40)
--- NOTE | 2019-05-18 17:19 | CONSULTATION REPORT ---
DATE OF SERVICE: 05/18/2019 ATTENDING PRIMARY CAR JOCKEY: NAHOMI Velasquez. HISTORY OF PRESENT ILLNESS: The patient is a 53-year-old female, who was admitted for abdominal and back pain. She has a history of cervical cancer, which sounds to have been involved with regional metastasis. She is status post end colostomy as well as pelvic exenteration and a urostomy formation. This was done 04/2018. She reports that she has developed a crampy pain in the abdomen as well as distention. She also noticed that there was less stool coming out of her end colostomy. A CT scan was performed, which did show some dilated loops of small bowel consistent with at least partial small-bowel obstruction. PAST MEDICAL HISTORY: Cervical cancer with regional metastasis, hyperthyroid, pulmonary hypertension, hypercholesterolemia, hypertension, gastroesophageal reflux disease, and anxiety. PAST SURGICAL HISTORY: Pelvic exenteration, end colostomy, urostomy formation, laparoscopic cholecystectomy and hysterectomy. ALLERGIES: PENICILLIN. MEDICATIONS: Albuterol 1 puff daily, atorvastatin 40 mg daily, baclofen 10 mg daily, budesonide and formoterol 1 puff daily, diltiazem 240 mg daily, duloxetine 60 mg daily, hydrochlorothiazide 12.5 mg daily, hydrocodone daily, levothyroxine 175 mcg daily, lisinopril 40 mg daily, meloxicam 7.5 mg daily, metoprolol 50 mg daily, omeprazole 20 mg daily, and tiotropium bromide 1 puff daily. SOCIAL HISTORY: Negative smoke, negative alcohol. FAMILY HISTORY: Noncontributory. VITAL SIGNS: Temperature is 97.3, blood pressure 125/63, pulse 76, respirations 20, and pulse ox of 97% on 2 liters nasal cannula. REVIEW OF SYSTEMS: This is a well-nourished female, currently in no acute distress. She is not experiencing any shortness of breath or difficulty breathing. No chest pain, palpitations or diaphoresis. She did have to two episodes of nausea and vomiting this morning, which were just bilious contents. There was no hematemesis, no coffee-ground emesis. She has a functional urostomy as well as end colostomy with stool within the colostomy bag; however, states that this was stool from the day previous to admission. The abdomen is mildly distended. No fever or chills. No recent inadvertent weight loss. All other review of systems is negative. PHYSICAL EXAMINATION: CHEST: Clear. Good breath sounds bilaterally. HEART: Regular, no murmurs. EXTREMITIES: Bilateral lower extremity edema +1/3. Negative Homans sign. HEENT: No scleral icterus. No cervical lymphadenopathy. ABDOMEN: Soft, mild distention, functionally urostomy as well as stool within the colostomy; however, she reports that this was previous to admission. SKIN: Warm, dry. LABORATORY DATA: WBC is 6.6, hemoglobin 12.4, hematocrit 41, and platelets 262. BUN is 12, creatinine 0.91. ASSESSMENT AND PLAN: A 53-year-old female with a partial small-bowel obstruction, most likely secondary to adhesion tissue from previous pelvic exenteration ileal conduit and urostomy as well as an end colostomy one year ago. We will recommend conservative therapy with bowel rest, IV fluids and ambulation to allow for resolution of the partial small-bowel obstruction. Job ID: [id number] DocumentID: [id number] Dictated Date: 05/18/2019 16:55:04 Hand Weaver Date: 05/18/2019 17:18:57 Dictated By: JORGE LUIS FOFANA MD [facility]
[2019-05-19] MEDS: ENOXAPARIN 60 MG/0.6 ML (LOVENOX) SYR SC SCH ×2 (02:02→13:49)
[2019-05-19 03:10] VITALS: BP 107/59
[2019-05-19] MEDS: NS IV 1000 ML 1,000 ML IV SCH ×3 (04:44→23:32)
[2019-05-19 05:58] LABS: HEMOGLOBIN 11.2 G/DL (11.5-16.0); MEAN PLATELET VOLUME 10.1 FL (7.4-10.4); RED CELL DISTRIBUTION WIDTH 14.3 % (10.0-14.5); WHITE BLOOD COUNT 5.5 10^3/uL (4.3-11.0)
[2019-05-19 06:19] LABS: BUN/CREATININE RATIO 16; CALCIUM 7.6 MG/DL (8.5-10.1); CARBON DIOXIDE 24 MMOL/L (21-32); CHLORIDE 109 MMOL/L (98-107); CREATININE SERUM 0.75 MG/DL (0.60-1.30); GFR ESTIMATED > 60; GLUCOSE 91 MG/DL (70-105); POTASSIUM 4.6 MMOL/L (3.6-5.0); SODIUM 141 MMOL/L (135-145)
[2019-05-19 08:00] VITALS: BP 118/70
--- NOTE | 2019-05-19 11:56 | Progress Note (SOAP) ---
Subjective Subjective/Events-last exam Reports pain is doing significantly better, is feeling hungry. Continues to make stool in ostomy. Review of Systems Date Seen by Provider: May 19, 2019 Time Seen by Provider: 10:30 Objective Exam Last Set of Vital Signs Vital Signs Date Time Temp Pulse Resp B/P (MAP) Pulse Ox O2 Delivery O2 Flow Rate FiO2 05/19/19 08:00 97.3 74 18 118/70 (86) 96 Nasal Cannula 2.00 Capillary Refill : Less Than 3 Seconds I&O Intake and Output 05/19/19 00:00 Intake Total 2500 ml Output Total 2450 ml Balance 50 ml Intake IV Total 2500 ml Output Urine Total 1850 ml Emesis 600 ml # Emeses 2 Daily Weight Change No No General: Alert, No Acute Distress Lungs: Clear to Auscultation, Normal Air Movement Heart: Regular Rate, No Murmurs Abdomen: Normal Bowel Sounds, Soft Psych/Mental Status: Mood NL Results/Procedures Lab Laboratory Tests 05/19/19 05:20: White Blood Count 5.5, Red Blood Count 3.91L, Hemoglobin 11.2L, Hematocrit 38, Mean Corpuscular Volume 97, Mean Corpuscular Hemoglobin 29, Mean Corpuscular Hemoglobin Concent 30L, Red Cell Distribution Width 14.3, Platelet Count 220, Mean Platelet Volume 10.1, Sodium Level 141, Potassium Level 4.6, Chloride Level 109H, Carbon Dioxide Level 24, Anion Gap 8, Blood Urea Nitrogen 12, Creatinine 0.75, Estimat Glomerular Filtration Rate > 60, BUN/Creatinine Ratio 16, Glucose Level 91, Calcium Level 7.6L Radiology CT abdomen/pelvis- ileal conduit, mid-abdomen dilated small bowel loops and nonobstructing bilateral renal stones Assessment/Plan Assessment/Plan (1) Small bowel obstruction Status: Acute Assessment & Plan: Bowel rest, NG not placed at this time due to mild symptoms, discussed if vomiting persists will need NG. Surgery consult, appreciate mic mmendations. 05/19 clinically improved, wanting to try intake, start with ice chips (2) Hypertension Status: Chronic Assessment & Plan: May need IV med if BP remains high while unable to take oral. Monitor closely. Qualifiers: Qualified Codes: I10 - Essential (primary) hypertension (3) Hypothyroidism Status: Chronic Assessment & Plan: Hold home levothyoxine while NPO, consider IV if NPO several days. Qualifiers: Qualified Codes: E03.9 - Hypothyroidism, unspecified (4) DVT prophylaxis Status: Acute Assessment & Plan: Enoxaparin Clinical Quality Measures DVT/VTE Risk/Contraindication: Risk Factor Score Per Nursin RFS Level Per Nursing on Admit: 2=Moderate FAYE HURST MD May 19, 2019 11:56
--- NOTE | 2019-05-19 13:04 | Progress Note (SOAP) ---
Subjective Date Seen by a Provider: May 19, 2019 Time Seen by a Provider: 12:00 Subjective/Events-last exam doing much better today. functional colostomy with significant output. no abd pain and much less distended. Objective Exam Vital Signs Date Time Temp Pulse Resp B/P (MAP) Pulse Ox O2 Delivery O2 Flow Rate FiO2 05/19/19 08:00 97.3 74 18 118/70 (86) 96 Nasal Cannula 2.00 05/19/19 03:10 97.5 85 16 107/59 (75) 96 Nasal Cannula 2.00 05/18/19 23:30 99.4 89 16 146/78 (100) 96 Nasal Cannula 2.00 05/18/19 23:00 Nasal Cannula 2.00 05/18/19 20:50 97 Nasal Cannula 2.00 05/18/19 19:35 99.1 82 20 128/65 (86) 97 Nasal Cannula 2.00 05/18/19 15:35 98.7 81 20 133/71 (91) 97 Nasal Cannula 2.00 I & O 05/19/19 07:00 Intake Total 3000 ml Output Total 3350 ml Balance -350 ml Capillary Refill : Less Than 3 Seconds General Appearance: No Apparent Distress HEENT: PERRL/EOMI Neck: Full Range of Motion Respiratory: Chest Non Tender, Lungs Clear, Normal Breath Sounds Cardiovascular: Regular Rate, Rhythm Gastrointestinal: normal bowel sounds, non tender, soft Extremity: Normal Capillary Refill Neurologic/Psychiatric: Alert, Oriented x3 Skin: Normal Color Lymphatic: No Adenopathy Results Lab Laboratory Tests 05/19/19 05:20: White Blood Count 5.5, Red Blood Count 3.91L, Hemoglobin 11.2L, Hematocrit 38, Mean Corpuscular Volume 97, Mean Corpuscular Hemoglobin 29, Mean Corpuscular Hemoglobin Concent 30L, Red Cell Distribution Width 14.3, Platelet Count 220, Mean Platelet Volume 10.1, Sodium Level 141, Potassium Level 4.6, Chloride Level 109H, Carbon Dioxide Level 24, Anion Gap 8, Blood Urea Nitrogen 12, Creatinine 0.75, Estimat Glomerular Filtration Rate > 60, BUN/Creatinine Ratio 16, Glucose Level 91, Calcium Level 7.6L Assessment/Plan Assessment/Plan Assess & Plan/Chief Complaint PSBO. responding well to conservative managment. start clears and advance as tolerated. will recommend keeping stools soft with high fiber diet vs. stool softeners longterm. Clinical Quality Measures DVT/VTE Risk/Contraindication: Risk Factor Score Per Nursin RFS Level Per Nursing on Admit: 2=Moderate JORGE LUIS FOFANA MD May 19, 2019 13:04
[2019-05-19 16:45] VITALS: BP 152/85
[2019-05-19] MEDS: ONDANSETRON 4 MG/2 ML (SDV) Z0FRAN IV PRN (17:35)
[2019-05-19 20:40] VITALS: BP 158/88
[2019-05-19] MEDS ORDERED: PROMETHAZINE INJ 25 MG/ML (PHENERGAN) AMP ONE (21:21)
[2019-05-19] MEDS ORDERED: PROMETHAZINE INJ 25 MG/ML (PHENERGAN) AMP IVP PRN (21:30)
[2019-05-19] MEDS: morphine INJ 4 MG/ML 1 ML (VIAL/SYRINGE) IV PRN (21:33)
[2019-05-20] VITALS: BP 127/71
[2019-05-20] MEDS: ENOXAPARIN 60 MG/0.6 ML (LOVENOX) SYR SC SCH ×2 (01:57→13:28)
[2019-05-20 04:00] VITALS: BP 141/76
[2019-05-20 06:11] LABS: HEMOGLOBIN 11.2 G/DL (11.5-16.0); MEAN PLATELET VOLUME 9.5 FL (7.4-10.4); RED CELL DISTRIBUTION WIDTH 14.2 % (10.0-14.5); WHITE BLOOD COUNT 5.1 10^3/uL (4.3-11.0)
[2019-05-20 06:27] LABS: BUN/CREATININE RATIO 17; CALCIUM 8.5 MG/DL (8.5-10.1); CARBON DIOXIDE 28 MMOL/L (21-32); CHLORIDE 106 MMOL/L (98-107); CREATININE SERUM 0.75 MG/DL (0.60-1.30); GFR ESTIMATED > 60; GLUCOSE 99 MG/DL (70-105); POTASSIUM 3.6 MMOL/L (3.6-5.0); SODIUM 143 MMOL/L (135-145)
[2019-05-20] MEDS: NS IV 1000 ML 1,000 ML IV SCH (07:15)
[2019-05-20 08:00] VITALS: BP 120/58
--- NOTE | 2019-05-20 13:43 | Discharge Instructions ---
Discharge [facility] Discharge Medications Continued Medications: Atorvastatin Calcium (Atorvastatin Calcium) 40 Mg Tablet 40 MG PO DAILY, TAB LAST FILLED #30 04-02-19 Hydrocodone/Acetaminophen (Hydrocodone-Acetamin 7.5-325) 1 Each Tablet 1 TAB PO Q6H PRN for PAIN-MODERATE, TAB (This prescription has been renewed) Hydroxyzine HCl (Hydroxyzine HCl) 25 Mg Tablet 25 MG PO Q8H PRN for ITCHING, TAB (This prescription has been renewed) Levothyroxine Sodium (Levothyroxine Sodium) 175 Mcg Tablet 175 MCG PO DAILY, TAB LAST FILLED 04-08-18 #86 Nystatin (Nystop) 60 Gm Powder TOP BID PRN for RASH, EA (This prescription has been renewed) Patient Instructions Goal/Follow Up Appt: Follow up with Tika Badillo APRN on 06/03 at 10 am. Return to The Hospital For: Inability to keep down liquids, severe abdominal pain, no stool output Activity & Diet Discharge Diet: Semi-Solid Diet Activity as Tolerated: Yes Copy Copies To 1: ISMAEL James BETHANY N MD May 20, 2019 13:28
--- NOTE | 2019-05-20 14:30 | Discharge Summary ---
Diagnosis/Chief Complaint Date of Admission May 18, 2019 at 05:32 Date of Discharge May 20, 2019 Admission Diagnosis Admission Diagnosis Small bowel obstruction Discharge Diagnosis See problem list Problems/Diagnosis: (1) Small bowel obstruction Assessment & Plan: Bowel rest, NG not placed at this time due to mild symptoms, discussed if vomiting persists will need NG. Surgery consult, appreciate recommendations. 05/19 clinically improved, wanting to try intake, start with ice chips 05/20 tolerating soft diet with continued stool output and no vomiting Status: Resolved Resolution Date/Time: 05/20/19 @ 14:29 (2) Hypertension Qualifiers: Qualified Codes: I10 - Essential (primary) hypertension Status: Chronic (3) Hypothyroidism Assessment & Plan: Held home levothyoxine while NPO Qualifiers: Qualified Codes: E03.9 - Hypothyroidism, unspecified Status: Chronic Chief Complaint/HPI Chief Complaint/HPI Pt presented to ER due to abdominal and back pain x 1 day that was severe. She denies fever, vomiting, diarrhea or constipation prior to arrival, but has had vomiting since arrival. She has a colostomy and has had stool output today. She has a history of pelvic exenteration due to cervical cancer and has ureteral ileal conduit and colostomy. She also had radiation to her pelvis and has had her gall bladder out. Today she reports her pain is at about 5/10 compared with 10/10 on arrival. Discharge Summary-Simple/Stand Consultations Discharge Physical Examination Allergies: Coded Allergies: Penicillins (Verified Allergy, Unknown, 03/04/17) Vitals & I&Os Vital Sign - Last 12Hours Date Time Temp Pulse Resp B/P (MAP) Pulse Ox O2 Delivery O2 Flow Rate FiO2 05/20/19 08:00 98.4 75 18 120/58 (78) 94 Room Air 05/20/19 04:00 1.00 Intake and Output 05/20/19 00:00 Intake Total 540 ml Output Total 925 ml Balance -385 ml General Appearance: Alert, No Acute Distress Respiratory: Clear to Auscultation, Normal Air Movement Cardiovascular: Regular Rate, No Murmurs Abdominal: Normal Bowel Sounds, Soft Psych/Mental Status: Mental Status NL Hospital Course See final discharge diagnosis. Radiology Reviewed CT abdomen/pelvis- ileal conduit, mid-abdomen dilated small bowel loops and nonobstructing bilateral renal stones Discharge Instructions to patient/family Please see electronic discharge instructions given to patient. Discharge Medications Reviewed and agree with Discharge Medication list on patient's Discharge Instruction sheet Clinical Quality Measures DVT/VTE Risk/Contraindication: Risk Factor Score Per Nursin RFS Level Per Nursing on Admit: 2=Moderate Copy Copies To 1: ISMAEL James BETHANY N MD May 20, 2019 14:30
[2019-05-20 14:50] VITALS: BP 120/58
--- NOTE | 2019-05-20 15:06 | NUR ---
Initial visit by starting gate driverasad [place]: pt demonstrated positive coping and amiable mood. No spiritual affiliation at this time.
== END 2019-05-20 15:00 | disposition home or self-care (01) | DRG 390 ==
LOC: EDUNIT# 03:50 → ER 03:52 → 4TH 05:32
PROVIDERS: ADMIT Internal Medicine; ATTEND Family Medicine
DX: K56.51 Intestinal adhesions [bands], with partial obstruction (principal); I10 Essential (primary) hypertension; E03.9 Hypothyroidism, unspecified; J45.909 Unspecified asthma, uncomplicated; I27.20 Pulmonary hypertension, unspecified; E78.00 Pure hypercholesterolemia, unspecified; K21.9 Gastro-esophageal reflux disease without esophagitis; F41.9 Anxiety disorder, unspecified; M79.7 Fibromyalgia; M19.91 Primary osteoarthritis, unspecified site; G62.9 Polyneuropathy, unspecified; Z85.41 Personal history of malignant neoplasm of cervix uteri; Z93.3 Colostomy status; Z93.6 Other artificial openings of urinary tract status; Z87.442 Personal history of urinary calculi; Z92.3 Personal history of irradiation
CPT/HCPCS: 36415; 74176; 80048; 80053; 85025; 85027; 86141; 96374

== ENCOUNTER 2019-05-24 11:31 | Observation (INO) | payer MEDICARE, MEDICAID ==
[~2019-05-24] VITALS: Ht 162.6 cm; Wt 139.5 kg
[~2019-05-24 11:31] MED LIST changes: +HYDR-3816 PO; +HYDR-700 PO; +NYST60PO TOP
--- NOTE | 2019-05-24 12:13 | ED Abdominal Pain ---
General Chief Complaint: Abdominal/GI Problems Stated Complaint: ABD PAIN/PREVIOUSLY HAD INTESTINAL BLOCKAGE Nursing Triage Note: PT AMB TO RM 9 WITH COMPLAINT OF LEFT SIDED ABD PAIN THAT RADIATES TO HER BACK. STATES SHE WAS DC FROM HOSPITAL ON THE FOR BOWEL OBSTRUCTION. STATES THIS PAIN IS DIFFERENT FROM PREVIOUS VISIT. STATES SHE QUIT HAVING COLOSTOMY OUTPUT LAST NIGHT. Sepsis Screen: No Definite Risk Source of Information: Patient, Spouse Exam Limitations: No Limitations History of Present Illness Date Seen by Provider: May 24, 2019 Time Seen by Provider: 11:58 Initial Comments Patient presents to ER by private conveyance with her and chief complai nt that about 2:00 in the morning she started experiencing some left upper quadrant abdominal pain radiating around to her back. She says she has a history of kidney stones seen on that he incidentally and as well as 5 days ago she was in the hospital for a bowel obstruction and she says this pain is reminiscent of the bowel obstruction. She was able to pass a bowel movement yesterday through her colostomy easily. She also has a loop ileostomy for urine all pursuant to the history of cervical cancer and such, radiation therapy. She's not been on antibiotics for several months. She is not having any fevers or chills. No nausea. She took a hydrocodone at 2:00 in the morning and it did not help much with her pain. She took another hydrocodone at 11:00 just prior to arrival and it has not helped yet either. She also has had her gallbladder out and denies any history of diverticulitis/diverticulosis. She's had a hernia repair but no appendectomy. Allergies and Home Medications Allergies Coded Allergies: Penicillins (Verified Allergy, Unknown, 03/04/17) Home Medications Atorvastatin Calcium 40 Mg Tablet, 40 MG PO DAILY, (Reported) LAST FILLED #30 04-02-19 Hydrocodone/Acetaminophen 1 Each Tablet, 1 TAB PO Q6H PRN for PAIN-MODERATE, (Reported) Hydroxyzine HCl 25 Mg Tablet, 25 MG PO Q8H PRN for ITCHING, (Reported) Levothyroxine Sodium 175 Mcg Tablet, 175 MCG PO DAILY, (Reported) LAST FILLED 04-08-18 #86 Nystatin 60 Gm Powder, TOP BID PRN for RASH, (Reported) Patient Home Medication List Home Medication List Reviewed: Yes Review of Systems Review of Systems Constitutional: No chills, No diaphoresis, No fever, No malaise EENTM: No Blurred Vision, No Double Vision Respiratory: Denies Cough, Denies Shortness of Air Cardiovascular: Denies Chest Pain, Denies Lightheadedness Gastrointestinal: See HPI, Abdominal Pain; Denies Constipated, Denies Diarrhea, Denies Nausea Genitourinary: See HPI; Denies Burning, Denies Discharge, Denies Hematuria Musculoskeletal: No back pain, No joint pain Skin: No pruritus, No rash Psychiatric/Neurological: Denies Headache, Denies Numbness Past Etdtffy-Wqulqv-Kqtdti Hx Patient Social History Alcohol Use: Rarely Uses Recreational Drug Use: No Smoking Status: Former Smoker 2nd Hand Smoke Exposure: No Recent Foreign Travel: No Contact w/Someone Who Travel: No Recent Infectious Disease Expo: No Recent Hopitalizations: No Immunizations Up To Date Tetanus Booster (TDap): Unknown Seasonal Allergies Seasonal Allergies: No Past Medical History Surgeries: Yes (HERNIA, FOOT) Abdominal, Gallbladder, Hysterectomy, Orthopedic Respiratory: Yes (pulmonary hypertension) Asthma Currently Using CPAP: No Currently Using BIPAP: No Cardiac: Yes (pulmonary hypertension, tachycardia) High Cholesterol, Hypertension Neurological: Yes Neuropathy 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 8.0oz. 122.543484hu; 53.0 BMI Method:Stated General Appearance: WD/WN, mild distress HEENT: PERRL/EOMI, pharynx normal Neck: full range of motion, normal inspection Respiratory: no respiratory distress, no accessory muscle use Cardiovascular: normal peripheral pulses, regular rate, rhythm Gastrointestinal: normal bowel sounds, soft, tenderness (left lower quadrant and left upper quadrant), other (ileostomy with yellow urine few flecks of mucus but no hematuria or stones/sediment. Colostomy with a dusky pink appearance and soft brown stool in the bag.) Extremities: normal range of motion, normal capillary refill Back: No CVA tenderness (R); CVA tenderness (L) Neurologic/Psychiatric: alert, normal mood/affect, oriented x 3 Skin: normal color, warm/dry Focused Exam Lactate Level 05/24/19 12:24: Lactic Acid Level 1.07 Lactic Acid Level Laboratory Tests Test 05/24/19 12:24 Lactic Acid Level 1.07 MMOL/L (0.50-2.00) Progress/Results/Core Measures Results/Orders Lab Results Laboratory Tests Test 05/24/19 11:45 05/24/19 12:22 05/24/19 12:24 Range/Units White Blood Count 6.5 4.3-11.0 10^3/uL Red Blood Count 4.42 4.35-5.85 10^6/uL Hemoglobin 12.7 11.5-16.0 G/DL Hematocrit 42 35-52 % Mean Corpuscular Volume 94 80-99 FL Mean Corpuscular Hemoglobin 29 25-34 PG Mean Corpuscular Hemoglobin Concent 31 L 32-36 G/DL Red Cell Distribution Width 14.3 10.0-14.5 % Platelet Count 297 130-400 10^3/uL Mean Platelet Volume 10.2 7.4-10.4 FL Neutrophils (%) (Auto) 57 42-75 % Lymphocytes (%) (Auto) 31 12-44 % Monocytes (%) (Auto) 8 0-12 % Eosinophils (%) (Auto) 4 0-10 % Basophils (%) (Auto) 0 0-10 % Neutrophils # (Auto) 3.7 1.8-7.8 X 10^3 Lymphocytes # (Auto) 2.0 1.0-4.0 X 10^3 Monocytes # (Auto) 0.5 0.0-1.0 X 10^3 Eosinophils # (Auto) 0.2 0.0-0.3 10^3/uL Basophils # (Auto) 0.0 0.0-0.1 10^3/uL Prothrombin Time 12.6 12.2-14.7 SEC INR Comment 0.9 0.8-1.4 Activated Partial Thromboplast Time 29 24-35 SEC Sodium Level 138 135-145 MMOL/L Potassium Level 4.0 3.6-5.0 MMOL/L Chloride Level 104 98-107 MMOL/L Carbon Dioxide Level 25 21-32 MMOL/L Anion Gap 9 5-14 MMOL/L Blood Urea Nitrogen 13 7-18 MG/DL Creatinine 0.78 0.60-1.30 MG/DL Estimat Glomerular Filtration Rate > 60 BUN/Creatinine Ratio 17 Glucose Level 92 70-105 MG/DL Calcium Level 8.9 8.5-10.1 MG/DL Corrected Calcium 9.1 8.5-10.1 MG/DL Total Bilirubin 0.2 0.1-1.0 MG/DL Aspartate Amino Transf (AST/SGOT) 21 5-34 U/L Alanine Aminotransferase (ALT/SGPT) 37 0-55 U/L Alkaline Phosphatase 97 40-136 U/L Total Protein 8.1 6.4-8.2 GM/DL Albumin 3.7 3.2-4.5 GM/DL Lipase 17 8-78 U/L Urine Color YELLOW Urine Clarity CLEAR Urine pH 8 5-9 Urine Specific [place] 1.010 L 1.016-1.022 Urine Protein 3+ H NEGATIVE Urine Glucose (UA) NEGATIVE NEGATIVE Urine Ketones NEGATIVE NEGATIVE Urine Nitrite POSITIVE H NEGATIVE Urine Bilirubin NEGATIVE NEGATIVE Urine Urobilinogen NORMAL NORMAL MG/DL Urine Leukocyte Esterase 3+ H NEGATIVE Urine RBC (Auto) 4+ H NEGATIVE Urine RBC 5-10 H /HPF Urine WBC 10-25 H /HPF Urine Squamous Epithelial Cells NONE /HPF Urine Crystals PRESENT H /LPF Urine Triple Phosphate Crystals LARGE H /LPF Urine Amorphous Sediment LARGE MYA PHOSPHATE H /LPF Urine Bacteria LARGE H /HPF Urine Casts NONE /LPF Urine Mucus NEGATIVE /LPF Urine Culture Indicated CULTURE PENDING Lactic Acid Level 1.07 0.50-2.00 MMOL/L My Orders Orders - MIGEL WEAVER Cbc With Automated Diff (05/24/19 12:03) Comprehensive Metabolic Panel (05/24/19 12:03) Blood Culture (05/24/19 12:03) Sputum Culture (05/24/19 12:03) Urinalysis (05/24/19 12:03) Urine Culture (05/24/19 12:03) Protime With Inr (05/24/19 12:03) Partial Thromboplastin Time (05/24/19 12:03) Chest 1 View, Ap/Pa Only (05/24/19 12:03) Ed Iv/Invasive Line Start (05/24/19 12:03) Ed Iv/Invasive Line Start (05/24/19 12:03) Vital Signs Adult Sepsis Patie Q15M (05/24/19 12:03) O2 (05/24/19 12:03) Remove Rings In Anticipation O (05/24/19 12:03) Lactic Acid Analyzer (05/24/19 12:03) Ns Iv 1000 Ml (Sodium Chloride 0.9%) (05/24/19 12:03) Ciprofloxacin Iv 400mg/200ml (Cipro Iv S (05/24/19 12:15) Metronidazole 500mg/100ml Ivpb (Flagyl 5 (05/24/19 12:15) Fentanyl Injection (Sublimaze Injection (05/24/19 12:15) Lipase (05/24/19 12:03) Ct Abdomen/Pelvis W (05/24/19 13:59) Iohexol Injection (Omnipaque 350 Mg/Ml 1 (05/24/19 14:15) Received Contrast (Hold Metformin- Contr (05/24/19 14:15) Ns (Ivpb) (Sodium Chloride 0.9% Ivpb Bag (05/24/19 14:15) Fentanyl Injection (Sublimaze Injection (05/24/19 15:15) Fentanyl Injection (Sublimaze Injection (05/24/19 15:15) Medications Given in ED Current Medications Medications Dose Ordered Sig/Minh Route Start Time Stop Time Status Last Admin Dose Admin Ciprofloxacin/ Dextrose 200 ml @ 200 mls/hr ONCE ONCE IV 05/24/19 12:15 05/24/19 13:14 DC 05/24/19 12:35 200 MLS/HR Fentanyl Citrate 50 mcg ONCE ONCE IVP 05/24/19 12:15 05/24/19 12:16 DC 05/24/19 12:14 50 MCG Fentanyl Citrate 50 mcg ONCE ONCE IVP 05/24/19 15:15 05/24/19 15:16 05/24/19 15:09 50 MCG Iohexol 100 ml ONCE ONCE IV 05/24/19 14:15 05/24/19 14:16 DC 05/24/19 14:15 100 ML Metronidazole 100 ml @ 100 mls/hr ONCE ONCE IV 05/24/19 12:15 05/24/19 13:14 DC 05/24/19 12:35 100 MLS/HR Sodium Chloride 100 ml ONCE ONCE IV 05/24/19 14:15 05/24/19 14:16 DC 05/24/19 14:15 80 ML Vital Signs/I&O 05/24/19 11:38 Temp 97.1 Pulse 101 Resp 17 B/P (MAP) 115/83 (94) Pulse Ox 94 O2 Delivery Room Air Blood Pressure Mean: 94 Progress Progress Note : Time: 12:12 Progress Note The patient is tachycardic around 110-115. We'll do a septic workup including cultures and lactate. [place] body weight of 180 pounds puts her at 20 mL/kg fluid bolus around 1700 cc we'll give her 2 liters. We'll give her 50 g of fentanyl for pain. Obtain CT of the abdomen pelvis with IV contrast possible. This could rule out a ureteral stone on the precontrast face and look for evidence of bowel obstruction. Diagnostic Imaging Diagonstic Imaging: Xray Plain Films/CT/US/NM/MRI: chest (1v) Comments NAME: CHELSEA GUTIERREZ [facility] REC#: [id number] PT STATUS: REG ER : 1965 PHYSICIAN: MIGEL WEAVER MD ADMIT DATE: 05/24/19/ER Signed Date of Exam:05/24/19 CHEST 1 VIEW, AP/PA ONLY INDICATION: Chest pain. COMPARISON: None. FINDINGS: Single view of the chest demonstrates slight cardiac enlargement. Lungs are otherwise clear. There is no pneumothorax. Osseous structures are normal. IMPRESSION: Cardiac enlargement without pulmonary edema or infiltrate. Dictated by: Dictated on workstation # [id number] Dict: 05/24/19 1259 Trans: 05/24/19 1329 [id number] Interpreted by: ANGELA TEE Electronically signed by: ANGELA TEE 05/24/19 1329 Reviewed: Reviewed by Me Diagonstic Imaging: CT (we will IV contrast) Plain Films/CT/US/NM/MRI: abdomen, pelvis Comments NAME: CHELSEA GUTIERREZ [facility] REC#: [id number] PHYSICIAN: MIGEL WEAVER MD CC: ANGELA TEE; MIGEL WEAVER Page 2 of 2 RADIOLOGY REPORT [facility]. [place], [place] CC: ANGELA TEE; MIGEL WEAVER Page 1 of 2 RADIOLOGY REPORT NAME: CHELSEA GUTIERREZ [facility] REC#: [id number] PT STATUS: REG ER : 1965 PHYSICIAN: MIGEL WEAVER MD ADMIT DATE: 05/24/19/ER Signed Date of Exam: 05/24/19 CT ABDOMEN/PELVIS W PROCEDURE: CT abdomen and pelvis with contrast. TECHNIQUE: Multiple contiguous axial images were obtained through the abdomen and pelvis after administration of intravenous contrast. Auto Exposure Controls were utilized during the CT exam to meet ALARA standards for radiation dose reduction. INDICATION: Back and abdominal pain, history of bowel obstructions. COMPARISON: 05/18/2019 FINDINGS: The lung bases are clear. Benign liver cysts are present. Gallbladder is surgically absent. Stable UPJ obstructions are seen with bilateral nephrolithiasis. Spleen, pancreas, adrenal glands and vascular structures are stable. There is a right midabdominal ileal urostomy. There is a left lower quadrant colostomy. The urinary bladder and rectum are surgically absent. The visualized loops of the large and small bowel are of normal caliber. There is no bowel distention, free air, free fluid or abscess. There is no ascites. Osseous structures are age-appropriate. IMPRESSION: 1. Stable appearing right midabdominal ileal urostomy with associated UPJ versus mild hydronephrosis and renal stones from urostasis. This is unchanged from prior exam. 2. Left lower quadrant colostomy. No bowel obstruction, ileus, free air or free fluid is seen. 3. Surgically absent gallbladder, bladder and rectum. Dictated by: Dictated on workstation # [id number] Dict: 05/24/19 1431 Trans: 05/24/19 1455 Interpreted by: ANGELA TEE Electronically signed by: ANGELA TEE 05/24/19 1455 Reviewed: Reviewed by Me Departure Communication (Admissions) Time/Spoke to Admitting Phy: 15:10 Discussed case lab imaging with Dr. Guerra and she agrees to observe the patient. Impression Primary Impression: Urinary tract infection Qualified Codes: N10 - Acute pyelonephritis Additional Impression: Abdominal pain Qualified Codes: R10.12 - Left upper quadrant pain Disposition: ADMITTED INPATIENT Condition: Stable Admissions Decision to Admit Reason: Admit from ER (General) Decision to Admit/Date: May 24, 2019 Time/Decision to Admit Time: 15:06 Departure-Patient Inst. Referrals: [facility] (PCP) Primary Care Physician ANALI DUFF (Family) Primary Care Physician MIGEL WEAVER May 24, 2019 12:13
[2019-05-24] MEDS: NS IV 1000 ML 1,000 ML IV SCH ×3 (12:14→18:08)
[2019-05-24 12:15] LABS: BASOPHILS % (AUTO) 0 % (0-10); EOSINOPHILS # (AUTO) 0.2 10^3/uL (0.0-0.3); EOSINOPHILS % (AUTO) 4 % (0-10); HEMATOCRIT 42 % (35-52); HEMOGLOBIN 12.7 G/DL (11.5-16.0); LYMPHOCYTES % (AUTO) 31 % (12-44); MEAN CORPUSCULAR HEMOGLOBIN 29 PG (25-34); MEAN CORPUSCULAR HGB CONC 31 G/DL (32-36); MEAN CORPUSCULAR VOLUME 94 FL (80-99); MEAN PLATELET VOLUME 10.2 FL (7.4-10.4); MONOCYTES # (AUTO) 0.5 X 10^3 (0.0-1.0); MONOCYTES % (AUTO) 8 % (0-12); NEUTROPHILS # (AUTO) 3.7 X 10^3 (1.8-7.8); NEUTROPHILS % (AUTO) 57 % (42-75); PLATELET COUNT 297 10^3/uL (130-400); RED CELL DISTRIBUTION WIDTH 14.3 % (10.0-14.5); WHITE BLOOD COUNT 6.5 10^3/uL (4.3-11.0)
[2019-05-24] MEDS ORDERED: fentaNYL INJECTION 100 MCG/2 ML AMP IVP ONE ×3 (12:15→15:15)
[2019-05-24] MEDS ORDERED: CIPROFLOXACIN IV 400MG/200ML 200 ML IV ONE (12:15)
[2019-05-24] MEDS ORDERED: metroNIDAZOLE 500MG/100ML IVPB 100 ML IV ONE (12:15)
[2019-05-24 12:21] LABS: INR 0.9 (0.8-1.4); PROTHROMBIN TIME PATIENT 12.6 SEC (12.2-14.7)
[2019-05-24 12:30] LABS: BILIRUBIN,URINE NEGATIVE (NEGATIVE); CLARITY,URINE CLEAR; COLOR,URINE YELLOW; GLUCOSE, URINE (UA) NEGATIVE (NEGATIVE); KETONES,URINE NEGATIVE (NEGATIVE); LEUKOCYTE ESTERASE ,URINE 3+ (NEGATIVE); NITRITE,URINE POSITIVE (NEGATIVE); PH,URINE 8 (5-9); PROTEIN,URINE 3+ (NEGATIVE); UROBILINOGEN,URINE NORMAL (NORMAL)
[2019-05-24 12:30] LABS: ALANINE AMINOTRANSFERASE 37 U/L (0-55); ALBUMIN 3.7 GM/DL (3.2-4.5); ALKALINE PHOSPHATASE 97 U/L (40-136); BILIRUBIN,TOTAL 0.2 MG/DL (0.1-1.0); BUN/CREATININE RATIO 17; CALCIUM 8.9 MG/DL (8.5-10.1); CARBON DIOXIDE 25 MMOL/L (21-32); CHLORIDE 104 MMOL/L (98-107); CREATININE SERUM 0.78 MG/DL (0.60-1.30); GFR ESTIMATED > 60; GLUCOSE 92 MG/DL (70-105); LIPASE 17 U/L (8-78); SODIUM 138 MMOL/L (135-145); TOTAL PROTEIN 8.1 GM/DL (6.4-8.2)
[2019-05-24 12:45] LABS: AMORPHOUS SEDIMENT,UR LARGE AMOR PHOSPHATE /LPF; BACTERIA,URINE LARGE /HPF; TRIPLE PHOSPHATE CRYSTAL,UR LARGE /LPF
--- NOTE | 2019-05-24 13:05 | Diagnostic Imaging Report ---
INDICATION: Chest pain. COMPARISON: None. FINDINGS: Single view of the chest demonstrates slight cardiac enlargement. Lungs are otherwise clear. There is no pneumothorax. Osseous structures are normal. IMPRESSION: Cardiac enlargement without pulmonary edema or infiltrate. Dictated by: Dictated on workstation # [id number]
[2019-05-24] MEDS ORDERED: NS 100 ML (IVPB) BAG IV ONE (14:15)
[2019-05-24] MEDS ORDERED: IOHEXOL 350 MG/ML 100 ML (OMNIPAQUE 350) VIAL IV ONE (14:15)
[2019-05-24] MEDS ORDERED: HOLD METFORMIN - RECEIVED CONTRAST 20 ML VIAL IV SCH (14:15)
--- NOTE | 2019-05-24 14:42 | Diagnostic Imaging Report ---
PROCEDURE: CT abdomen and pelvis with contrast. TECHNIQUE: Multiple contiguous axial images were obtained through the abdomen and pelvis after administration of intravenous contrast. Auto Exposure Controls were utilized during the CT exam to meet ALARA standards for radiation dose reduction. INDICATION: Back and abdominal pain, history of bowel obstructions. COMPARISON: 05/18/2019 FINDINGS: The lung bases are clear. Benign liver cysts are present. Gallbladder is surgically absent. Stable UPJ obstructions are seen with bilateral nephrolithiasis. Spleen, pancreas, adrenal glands and vascular structures are stable. There is a right midabdominal ileal urostomy. There is a left lower quadrant colostomy. The urinary bladder and rectum are surgically absent. The visualized loops of the large and small bowel are of normal caliber. There is no bowel distention, free air, free fluid or abscess. There is no ascites. Osseous structures are age-appropriate. IMPRESSION: 1. Stable appearing right midabdominal ileal urostomy with associated UPJ versus mild hydronephrosis and renal stones from urostasis. This is unchanged from prior exam. 2. Left lower quadrant colostomy. No bowel obstruction, ileus, free air or free fluid is seen. 3. Surgically absent gallbladder, bladder and rectum. Dictated by: Dictated on workstation # [id number]
[2019-05-24] MEDS ORDERED: KETOROLAC 15 MG/ML VIAL IV PRN (17:00)
[2019-05-24] MEDS ORDERED: ACETAMINOPHEN 325 MG TABLET PO PRN (17:00)
[2019-05-24] MEDS ORDERED: fentaNYL INJECTION 100 MCG/2 ML AMP IV PRN (17:00)
--- NOTE | 2019-05-24 17:43 | NUR ---
CHELSEA GUTIERREZ Yesica admitted to room 417-1, with an admitting diagnosis of PYELONEPHRITIS, on 05/24/19 from ED via wheelchair, accompanied by staff. CHELSEA GUTIERREZ introduced to surroundings, call light, bed controls, phone, TV, temperature control, lights, meal times, smoking policy, visitor policy, side rail policy, bathrooms and showers. Patient Rights given to patient in the handbook. CHELSEA GUTIERREZ verbalizes understanding that [facility] is not responsible for the loss or damage to any personal effects or valuables that are kept in the patients possession during their hospitalization. The following Patient Care Plans were discussed with the patient: Discharge Planning, medications, pain management, and dehydration. CHELSEA GUTIERREZ verbalizes understanding of Interdisciplinary Patient Education. Patient and/or family were informed about the Rapid Response Team and its purpose.
[2019-05-24] MEDS: HYDROcodone/APAP 5 MG/325 MG (LORTAB) TAB PO PRN ×2 (18:14→23:33)
[2019-05-24 18:37] VITALS: BP 168/86
[2019-05-24 20:00] VITALS: BP 142/83
[2019-05-24] MEDS ORDERED: ATORVASTATIN 40 MG (LIPITOR) TABLET PO SCH (21:00)
[2019-05-24] MEDS ORDERED: LEVOFLOXACIN 750 MG/D5W 150 ML PRE-MIX IV SCH (21:00)
[2019-05-25 00:41] VITALS: BP 120/80
[2019-05-25] MEDS: NS IV 1000 ML 1,000 ML IV SCH ×3 (01:21→08:03)
[2019-05-25 04:00] VITALS: BP 121/67
[2019-05-25 05:28] LABS: BASOPHILS % (AUTO) 0 % (0-10); EOSINOPHILS # (AUTO) 0.3 10^3/uL (0.0-0.3); EOSINOPHILS % (AUTO) 6 % (0-10); HEMATOCRIT 37 % (35-52); HEMOGLOBIN 11.1 G/DL (11.5-16.0); LYMPHOCYTES # (AUTO) 1.7 X 10^3 (1.0-4.0); LYMPHOCYTES % (AUTO) 35 % (12-44); MEAN CORPUSCULAR HEMOGLOBIN 29 PG (25-34); MEAN CORPUSCULAR HGB CONC 30 G/DL (32-36); MEAN CORPUSCULAR VOLUME 96 FL (80-99); MEAN PLATELET VOLUME 9.7 FL (7.4-10.4); MONOCYTES # (AUTO) 0.5 X 10^3 (0.0-1.0); MONOCYTES % (AUTO) 11 % (0-12); NEUTROPHILS # (AUTO) 2.3 X 10^3 (1.8-7.8); NEUTROPHILS % (AUTO) 49 % (42-75); PLATELET COUNT 208 10^3/uL (130-400); RED CELL DISTRIBUTION WIDTH 14.3 % (10.0-14.5); WHITE BLOOD COUNT 4.7 10^3/uL (4.3-11.0)
[2019-05-25 05:52] LABS: ALANINE AMINOTRANSFERASE 24 U/L (0-55); ALKALINE PHOSPHATASE 77 U/L (40-136); BILIRUBIN,TOTAL 0.2 MG/DL (0.1-1.0); BUN/CREATININE RATIO 11; CALCIUM 8.1 MG/DL (8.5-10.1); CARBON DIOXIDE 26 MMOL/L (21-32); CHLORIDE 109 MMOL/L (98-107); CREATININE SERUM 0.81 MG/DL (0.60-1.30); GFR ESTIMATED > 60; GLUCOSE 93 MG/DL (70-105); POTASSIUM 3.7 MMOL/L (3.6-5.0); SODIUM 142 MMOL/L (135-145); TOTAL PROTEIN 6.4 GM/DL (6.4-8.2)
[2019-05-25] MEDS ORDERED: LEVOTHYROXINE 100 MCG (LEVOTHROID) TAB PO SCH (06:30)
[2019-05-25] MEDS ORDERED: LEVOTHYROXINE 75 MCG (LEVOTHROID) TABLET PO SCH (06:30)
[2019-05-25 08:00] VITALS: BP 126/76
[2019-05-25] MEDS ORDERED: LEVO500T2 PO (10:37)
--- NOTE | 2019-05-25 10:39 | Short Stay Summary-Hospitalist ---
History of Present Illness HPI/Chief Complaint Chief Complaint: Pyelonephritis HPI: This is a 54yoWF that came in with abdominal pain diagnosed with pyelonephritis early onset white count of 10 to 20 on urine who recently was discharged last week for small bowel obstruction. At this current time pt feels much better was placed empirically on Levaquin and will need 6 more days of Levaquin after discharge to complete the treatment. She is ambulatory she is eating and drinking no nausea or vomiting bowels are moving and she otherwise feels good. Tika Badillo will see her as scheduled 10:00 o'clock tomorrow morning and she will f/u on the urine culture. Source: patient Date Seen 05/25/19 Time Seen by a Provider: 09:00 Attending Physician Elham Guerra MD [facility] Referring Physician Date of Admission May 24, 2019 at 15:15 Home Medications & Allergies Home Medications Reviewed patient Home Medication Reconciliation performed by pharmacy medication reconciliations mri technician and/or nursing. Patients Allergies have been reviewed. Allergies Allergies Coded Allergies Penicillins (Verified Allergy, Unknown, 03/04/17) Past Landqca-Iqaket-Jasxuz Hx Past Med/Social Hx: Reviewed Nursing Past Med/Soc Hx, Reviewed and Corrections made Patient Social History Marrital Status: Employed/Student: unemployed Alcohol Use: Rarely Uses Recreational Drug Use: No Smoking Status: Former Smoker 2nd Hand Smoke Exposure: No Recent Foreign Travel: No Contact w/other who traveled: No Recent Hopitalizations: No Recent Infectious Disease Expo: No Immunizations Up To Date Tetanus Booster (TDap): Unknown Seasonal Allergies Seasonal Allergies: No Past Medical History Surgeries: Abdominal, Gallbladder, Hysterectomy, Orthopedic Currently Using CPAP: No Currently Using BIPAP: No Cardiac: High Cholesterol, Hypertension Neurological: Neuropathy Reproductive: No Hysterectomy Gastrointestinal: Gastroesophageal Reflux Musculoskeletal: Arthritis, Fibromyalgia Endocrine: Hypothyroidsim Psychosocial: Anxiety History of Blood Disorders: No Family History No Pertinent Family Hx Review of Systems Constitutional: see HPI EENTM: no symptoms reported Respiratory: no symptoms reported Cardiovascular: no symptoms reported Gastrointestinal: no symptoms reported Genitourinary: decreased output Musculoskeletal: no symptoms reported Skin: no symptoms reported Psychiatric/Neurological: No Symptoms Reported All Other Systems Reviewed Negative Unless Noted: Yes Physical Exam Physical Exam Vital Signs Vital Signs - First Documented 05/24/19 05/24/19 11:38 13:00 Temp 97.1 Pulse 101 Resp 17 B/P (MAP) 115/83 (94) Pulse Ox 94 O2 Delivery Room Air O2 Flow Rate 2.00 Capillary Refill : Less Than 3 Seconds Height, Weight, BMI Height: 5'4.00" Weight: 307lbs. 9.6oz. 139.038063cz; 46.3 BMI Method:Stated General Appearance: No Apparent Distress, WD/WN, Chronically ill, Obese Eyes: Bilateral Eye Normal Inspection, Bilateral Eye PERRL HEENT: PERRL/EOMI, Normal ENT Inspection, Pharynx Normal Neck: Full Range of Motion, Normal Inspection, Non Tender, Supple, Carotid Bruit Respiratory: Chest Non Tender, Lungs Clear, Normal Breath Sounds, No Accessory Muscle Use, No Respiratory Distress Cardiovascular: Regular Rate, Rhythm, No Edema, No Gallop, No JVD, No Murmur, Normal Peripheral Pulses Gastrointestinal: Normal Bowel Sounds, No Organomegaly, No Pulsatile Mass, Non Tender, Soft Back: Normal Inspection, No CVA Tenderness, No Vertebral Tenderness Extremity: Normal Capillary Refill, Normal Inspection, Normal Range of Motion, Non Tender, No Calf Tenderness, No Pedal Edema Neurologic/Psychiatric: Alert, Oriented x3, No Motor/Sensory Deficits, Normal Mood/Affect Skin: Normal Color, Warm/Dry Lymphatic: No Adenopathy Results Results/Procedures Labs Laboratory Tests 05/24/19 11:45 05/25/19 05:18 Patient resulted labs reviewed. Short Stay Diagnosis Discharge Diagnosis-Short Stay Admission Diagnosis Assessment: Pyelonephritis Recent SBO Former smoker Final Discharge Diagnosis Assessment: Pyelonephritis Recent SBO Former smoker Conclusion Plan DC home PCP tomorrow Abx Clinical Quality Measures DVT/VTE Risk/Contraindication: Risk Factor Score Per Nursin RFS Level Per Nursing on Admit: 4+=Very High AUNDREA TSE DO May 25, 2019 10:39
[2019-05-25 12:00] VITALS: BP 150/82
== END 2019-05-25 10:38 | disposition home or self-care (01) ==
LOC: EDUNIT# 11:31 → ER 11:32 → 4TH 15:15 → UNDOADMOB 15:15 → 4TH 16:37 → UNDODISOB 05-25 13:15
PROVIDERS: ADMIT Family Medicine; ATTEND Family Medicine
DX: N10 Acute pyelonephritis (principal); I10 Essential (primary) hypertension; I27.20 Pulmonary hypertension, unspecified; E78.00 Pure hypercholesterolemia, unspecified; E03.9 Hypothyroidism, unspecified; J45.909 Unspecified asthma, uncomplicated; F41.9 Anxiety disorder, unspecified; K21.9 Gastro-esophageal reflux disease without esophagitis; M79.7 Fibromyalgia; M19.91 Primary osteoarthritis, unspecified site; G62.9 Polyneuropathy, unspecified; Z87.891 Personal history of nicotine dependence; Z93.3 Colostomy status; Z79.899 Other long term (current) drug therapy
CPT/HCPCS: 36415; 71045; 74177; 80053; 81000; 83605; 83690; 85025; 85610; 85730; 87040; 87077; 87088; 87186; 96361; 96365; 96367; 96368; 96375; 96376; G0378

== ENCOUNTER → 2019-09-28 | Outpatient (CLI) | payer MEDICARE, MEDICAID ==
[~2019-09-28] MED LIST changes: +CATHETER FLUSH 10 ML SYR IV PRN; -DULO60CA58 PO; +DULO60CA59 PO; +HOLD METFORMIN - RECEIVED CONTRAST 20 ML VIAL IV SCH; +IOHEXOL 350 MG/ML 100 ML (OMNIPAQUE 350) VIAL IV ONE; +LEVO500T2 PO; +NS 100 ML (IVPB) BAG IV ONE; -OMEP20CA12 PO; +OMEP20CA13 PO
[2019-09-28 10:18] LABS: BASOPHILS % (AUTO) 0 % (0-10); EOSINOPHILS # (AUTO) 0.2 10^3/uL (0.0-0.3); EOSINOPHILS % (AUTO) 4 % (0-10); HEMATOCRIT 43 % (35-52); HEMOGLOBIN 13.3 G/DL (11.5-16.0); LYMPHOCYTES # (AUTO) 1.9 X 10^3 (1.0-4.0); LYMPHOCYTES % (AUTO) 36 % (12-44); MEAN CORPUSCULAR HEMOGLOBIN 30 PG (25-34); MEAN CORPUSCULAR HGB CONC 31 G/DL (32-36); MEAN CORPUSCULAR VOLUME 96 FL (80-99); MEAN PLATELET VOLUME 9.9 FL (7.4-10.4); MONOCYTES # (AUTO) 0.4 X 10^3 (0.0-1.0); MONOCYTES % (AUTO) 9 % (0-12); NEUTROPHILS # (AUTO) 2.7 X 10^3 (1.8-7.8); NEUTROPHILS % (AUTO) 52 % (42-75); PLATELET COUNT 237 10^3/uL (130-400); RED CELL DISTRIBUTION WIDTH 14.5 % (10.0-14.5); WHITE BLOOD COUNT 5.2 10^3/uL (4.3-11.0)
[2019-09-28 10:48] LABS: ALANINE AMINOTRANSFERASE 17 U/L (0-55); ALBUMIN 3.7 GM/DL (3.2-4.5); ALKALINE PHOSPHATASE 99 U/L (40-136); BILIRUBIN,TOTAL 0.3 MG/DL (0.1-1.0); BUN/CREATININE RATIO 15; CALCIUM 9.1 MG/DL (8.5-10.1); CARBON DIOXIDE 30 MMOL/L (21-32); CHLORIDE 103 MMOL/L (98-107); CREATININE SERUM 0.88 MG/DL (0.60-1.30); GFR ESTIMATED > 60; GLUCOSE 102 MG/DL (70-105); POTASSIUM 3.8 MMOL/L (3.6-5.0); SODIUM 140 MMOL/L (135-145); TOTAL PROTEIN 7.9 GM/DL (6.4-8.2)
--- NOTE | 2019-10-05 11:40 | Diagnostic Imaging Report ---
EXAMINATION: CT Chest, Abdomen and Pelvis with intravenous contrast. TECHNIQUE: Multiple contiguous axial images were obtained through the chest, abdomen and pelvis after the uneventful administration of intravenous contrast. All CT scans use one or more of the following dose optimizing techniques: automated exposure control, MA and/or KvP adjustment based on a patient size and exam type, or iterative reconstruction. INDICATION: Cervical cancer. COMPARISON: 05/24/2019 and 05/02/2019 FINDINGS: The lungs are clear without edema or pneumonia. No pleural effusion or pneumothorax. No suspicious nodules. Heart size is normal. No pericardial effusion. Aorta is normal in caliber. There is no axillary or supraclavicular lymphadenopathy. There is no mediastinal lymphadenopathy. Liver cysts and low-attenuation lesions are unchanged, some of which are too small to characterize but also likely represent cysts. Gallbladder is surgically absent. There is no biliary ductal dilation. Pancreas is normal. Spleen is normal. Adrenal glands are normal. The kidneys are normal. There is no hydronephrosis. There has been pelvic examination. No evidence for local recurrence is seen in the pelvis. Right lower quadrant ileal conduit is seen in the left lower quadrant and colostomy is present. There is a small bowel containing parastomal hernia by the colostomy. There are no dilated loops of large or small bowel. No obstruction or inflammation. No free fluid or air. No abdominal or pelvic lymphadenopathy. Aorta is normal in caliber without aneurysm. There are no suspicious osseus lesions. IMPRESSION: 1. No evidence for recurrent metastatic disease. Dictated by: Dictated on workstation # [id number]
== END ==
LOC: RAD 09:22
PROVIDERS: ATTEND Internal Medicine Hematology & Oncology
DX: C53.0 Malignant neoplasm of endocervix (principal)
CPT/HCPCS: 36415; 71260; 74177; 80053; 85025

== ENCOUNTER → 2020-04-04 | Outpatient (CLI) | payer MEDICARE, MEDICAID ==
[~2020-04-04] MED LIST changes: +DIATRIZOATE MEGLUM/SODIUM 37% 120 ML (GASTROGRAFIN) PO ONE; -HYDR-3816 PO; -OMEP20CA13 PO; +OMEP20CA18 PO
[2020-04-04 10:06] LABS: WHITE BLOOD COUNT 6.6 10^3/uL (4.3-11.0)
[2020-04-04 10:07] LABS: BASOPHILS % (AUTO) 0 % (0-10); EOSINOPHILS # (AUTO) 0.2 10^3/uL (0.0-0.3); EOSINOPHILS % (AUTO) 3 % (0-10); HEMATOCRIT 41 % (35-52); HEMOGLOBIN 12.7 G/DL (11.5-16.0); LYMPHOCYTES % (AUTO) 31 % (12-44); MEAN CORPUSCULAR HEMOGLOBIN 30 PG (25-34); MEAN CORPUSCULAR HGB CONC 31 G/DL (32-36); MEAN CORPUSCULAR VOLUME 99 FL (80-99); MEAN PLATELET VOLUME 9.3 FL (7.4-10.4); MONOCYTES # (AUTO) 0.5 X 10^3 (0.0-1.0); MONOCYTES % (AUTO) 7 % (0-12); NEUTROPHILS # (AUTO) 3.8 X 10^3 (1.8-7.8); NEUTROPHILS % (AUTO) 58 % (42-75); PLATELET COUNT 274 10^3/uL (130-400); RED CELL DISTRIBUTION WIDTH 14.6 % (10.0-14.5)
[2020-04-04 10:43] LABS: SODIUM 139 MMOL/L (135-145)
[2020-04-04 10:44] LABS: ALANINE AMINOTRANSFERASE 18 U/L (0-55); ALBUMIN 3.6 GM/DL (3.2-4.5); ALKALINE PHOSPHATASE 100 U/L (40-136); BILIRUBIN,TOTAL 0.2 MG/DL (0.1-1.0); BUN/CREATININE RATIO 16; CALCIUM 9.1 MG/DL (8.5-10.1); CARBON DIOXIDE 30 MMOL/L (21-32); CHLORIDE 101 MMOL/L (98-107); CREATININE SERUM 0.86 MG/DL (0.60-1.30); GFR ESTIMATED > 60; GLUCOSE 105 MG/DL (70-105); POTASSIUM 4.1 MMOL/L (3.6-5.0); TOTAL PROTEIN 7.7 GM/DL (6.4-8.2)
--- NOTE | 2020-04-04 11:58 | Diagnostic Imaging Report ---
PROCEDURE: CT chest, abdomen, and pelvis with contrast. TECHNIQUE: Multiple contiguous axial images were obtained through the chest, abdomen, and pelvis after the administration of intravenous contrast. Auto Exposure Controls were utilized during the CT exam to meet ALARA standards for radiation dose reduction. INDICATION: Cervical cancer. COMPARISON: 09/28/2019. FINDINGS: CHEST: There is no thoracic lymphadenopathy. No suspicious pulmonary nodule or acute consolidation. No chest effusion. No suspicious or acute soft tissue or osseous chest wall pathology. ABDOMEN/PELVIS: The nonobstructing right renal calculus is stable. There is no hydroureteronephrosis with previous cystectomy and urinary diversion as well as left upper quadrant colostomy. No pathological appearing abdominal, pelvic, mesenteric, or retroperitoneal lymph nodes. There are a few small lymph nodes in the inguinal region bilaterally, stable. No suspicious mass. No ascites or acute fluid collection. The hepatic cysts and mild steatosis are stable. The adrenals, pancreas, and spleen are negative. The aorta is nonaneurysmal. IMPRESSION: CHEST: No evidence of metastasis or acute pathology. ABDOMEN/PELVIS: Stable post operative and benign findings with nonobstructing nephrolithiasis and hepatic cysts. Dictated by: Dictated on workstation # [id number]
== END ==
LOC: LAB FS 09:01
PROVIDERS: ATTEND Internal Medicine Hematology & Oncology
DX: C53.0 Malignant neoplasm of endocervix (principal); N20.0 Calculus of kidney; K76.89 Other specified diseases of liver
CPT/HCPCS: 36415; 71260; 74177; 80053; 85025

== ENCOUNTER → 2020-10-31 | Outpatient (CLI) | payer MEDICARE, MEDICAID ==
[~2020-10-31] MED LIST changes: -DIATRIZOATE MEGLUM/SODIUM 37% 120 ML (GASTROGRAFIN) PO ONE
[2020-10-31 11:31] LABS: BASOPHILS % (AUTO) 0 % (0-10); EOSINOPHILS # (AUTO) 0.2 10^3/uL (0.0-0.3); EOSINOPHILS % (AUTO) 3 % (0-10); HEMATOCRIT 42 % (35-52); HEMOGLOBIN 12.3 g/dL (11.5-16.0); LYMPHOCYTES # (AUTO) 1.7 10^3/uL (1.0-4.0); LYMPHOCYTES % (AUTO) 29 % (12-44); MEAN CORPUSCULAR HEMOGLOBIN 29 pg (25-34); MEAN CORPUSCULAR HGB CONC 29 g/dL (32-36); MEAN CORPUSCULAR VOLUME 98 fL (80-99); MEAN PLATELET VOLUME 9.5 fL (9.0-12.2); MONOCYTES # (AUTO) 0.5 10^3/uL (0.0-1.0); MONOCYTES % (AUTO) 8 % (0-12); NEUTROPHILS # (AUTO) 3.7 10^3/uL (1.8-7.8); NEUTROPHILS % (AUTO) 61 % (42-75); PLATELET COUNT 274 10^3/uL (130-400)
[2020-10-31 12:00] LABS: ALANINE AMINOTRANSFERASE 15 U/L (0-55); ALBUMIN 3.4 GM/DL (3.2-4.5); ALKALINE PHOSPHATASE 93 U/L (40-136); BILIRUBIN,TOTAL 0.3 MG/DL (0.1-1.0); BUN/CREATININE RATIO 15; CALCIUM 8.4 MG/DL (8.5-10.1); CARBON DIOXIDE 31 MMOL/L (21-32); CHLORIDE 100 MMOL/L (98-107); CREATININE SERUM 0.84 MG/DL (0.60-1.30); GFR ESTIMATED > 60; GLUCOSE 95 MG/DL (70-105); SODIUM 139 MMOL/L (135-145); TOTAL PROTEIN 7.3 GM/DL (6.4-8.2)
--- NOTE | 2020-10-31 12:54 | Diagnostic Imaging Report ---
PROCEDURE: CT chest, abdomen, and pelvis with contrast. TECHNIQUE: Multiple contiguous axial images were obtained through the chest, abdomen, and pelvis after the administration of intravenous contrast. Auto Exposure Controls were utilized during the CT exam to meet ALARA standards for radiation dose reduction. INDICATION: Cervical cancer. Shortness of air. CORRELATION STUDY: CT chest, abdomen, and pelvis 04/04/2020. FINDINGS: CT CHEST: Heart size is upper limits of normal. No pericardial effusion. The thoracic aorta is unremarkable. Azygos vein is mildly prominent. Right pretracheal mary jane-azygous vein currently measuring 11 x 10 mm. Otherwise, no concerning mediastinal, hilar, and/or axillary lymph nodes. Minimal dependent atelectasis right lower lobe. No concerning pulmonary infiltrate. No abnormal pulmonary mass. No significant effusion. CT ABDOMEN and PELVIS: Unchanged probable cyst within the liver. Gallbladder absent without significant bile duct dilatation. Spleen, pancreas, and adrenal glands demonstrate no acute abnormality. Some scar-like formation of the kidneys. Stable nonobstructing right renal stone. No obstructive uropathy. No thoracic aortic aneurysm. No pathologically enlarged central retroperitoneal lymph nodes. Extensive surgical changes of the pelvis including cystectomy with urinary diversion as well as resection of the distal colon and colostomy. No definitive abnormal pelvic mass lesion. Surgical changes and clips through the bilateral pelvic sidewalls. Demonstration of prominent bilateral inguinal lymph nodes. Marker lymph node on the right 17 x 12, previously 16 x 11. Two adjacent left inguinal lymph nodes in aggregate are 2.9 x 1.2 cm, previously 2.8 x 0.9 cm. Stable to slightly more prominent from prior. IMPRESSION: CT CHEST: Borderline prominent single mediastinal lymph node. Attention at followup recommended. Otherwise, no findings to suggest thoracic metastatic disease. CT ABDOMEN and PELVIS: 1. Prior surgical changes of the pelvis. No definitive abnormal pelvic mass lesion. 2. Bilateral inguinal lymph nodes persist but stable to perhaps minimally more prominent. Dictated by: Dictated on workstation # [id number]
== END ==
LOC: RAD 10:35
PROVIDERS: ATTEND Internal Medicine Hematology & Oncology
DX: C53.0 Malignant neoplasm of endocervix (principal); R59.0 Localized enlarged lymph nodes
CPT/HCPCS: 36415; 71260; 74177; 80053; 85025

== ENCOUNTER → 2021-02-28 | Outpatient (CLI) | payer MEDICARE, MEDICAID ==
[~2021-02-28] MED LIST changes: -LISI40TA PO; +LISI40TA9 PO; +RT-ALBUTEROL SULF 2.5 MG/3 ML PRE-MIX VIAL INH ONE
[2021-02-28 14:58] LABS: BUN/CREATININE RATIO 20; CREATININE SERUM 0.83 MG/DL (0.60-1.30); GFR ESTIMATED > 60
[2021-02-28 16:21] LABS: ABG BASE EXCESS -3.9 MMOL/L (-2.5-2.5); ABG OXYGEN SATURATION 95 % (94-100); ABG PCO2 45 MMHG (35-45); ABG PO2 90 MMHG (79-93); ABG TCO2 22.9 MMOL/L (21.0-31.0)
[2021-02-28 16:28] LABS: ALLENS TEST POS; INSPIRED O2 3L; PATIENT TEMP 98.1; VENTILATOR NO
--- NOTE | 2021-02-28 16:41 | Diagnostic Imaging Report ---
PROCEDURE: CT chest with contrast only. TECHNIQUE: Multiple contiguous axial images were obtained through the chest after administration of intravenous contrast. Auto Exposure Controls were utilized during the CT exam to meet ALARA standards for radiation dose reduction. INDICATION: Dyspnea. COMPARISON: 08/01/2020 FINDINGS: Previously noted right paratracheal lymph node is again identified. This measures 1.6 x 1.1 cm, not significantly changed since the prior examination. Of note, in April 2019 this measured 1.7 x 0.9 cm. No new adenopathy within the chest. No aneurysmal dilatation of the thoracic aorta. The heart is within normal limits in size. No pericardial effusion. No significant pleural effusion. No pneumothorax. Mild background centrilobular emphysematous changes. New pleural-based 0.7 cm pulmonary nodule is noted within the superior segment of the right lower lobe, best seen on series 3, image 50. Dependent atelectasis in the lungs bilaterally. No additional new pulmonary nodule or opacity. Several hypodensities are again noted within the partially visualized liver, appearing similar to prior imaging including 2019. Punctate nonobstructing left renal calculus. Bilateral ostomies are minimally visualized. Scattered osseous degenerative changes without acute osseous abnormality. IMPRESSION: New 0.7 cm right lower lobe pleural-based pulmonary nodule. Although this may simply relate to focal atelectasis, pulmonary nodule/neoplasm should be considered. Therefore, a follow-up CT of the chest in 3-6 months is recommended. Previously noted right paratracheal lymph node is mildly enlarged, though stable from the prior exam. No new adenopathy within the chest. Mild background emphysematous changes. Nonobstructing punctate left renal calculus. Dictated by: Dictated on workstation # [id number]
== END ==
LOC: RT 15:30
PROVIDERS: ATTEND Internal Medicine Critical Care Medicine
DX: J43.9 Emphysema, unspecified (principal); R91.1 Solitary pulmonary nodule; R59.0 Localized enlarged lymph nodes; N20.0 Calculus of kidney
CPT/HCPCS: 36415; 36600; 71260; 82565; 82805; 84520; 94060; 94640; 94726; 94729

== ENCOUNTER 2021-03-06 09:56 | Observation (INO) | payer MEDICARE, MEDICAID ==
[~2021-03-06] VITALS: Ht 160 cm; Wt 157.0 kg
[~2021-03-06 09:56] MED LIST changes: -CATHETER FLUSH 10 ML SYR IV PRN; -HOLD METFORMIN - RECEIVED CONTRAST 20 ML VIAL IV SCH; -IOHEXOL 350 MG/ML 100 ML (OMNIPAQUE 350) VIAL IV ONE; -NS 100 ML (IVPB) BAG IV ONE; -RT-ALBUTEROL SULF 2.5 MG/3 ML PRE-MIX VIAL INH ONE
[2021-03-06] MEDS ORDERED: RT-ALBUTEROL/IPRATROPIUM 3 ML (DUONEB) VIAL INH PRN (10:30)
[2021-03-06 11:55] LABS: BASOPHILS % (AUTO) 0 % (0-10); EOSINOPHILS % (AUTO) 2 % (0-10); HEMATOCRIT 34 % (35-52); HEMOGLOBIN 9.7 g/dL (11.5-16.0); LYMPHOCYTES % (AUTO) 20 % (12-44); MEAN CORPUSCULAR HEMOGLOBIN 29 pg (25-34); MEAN CORPUSCULAR HGB CONC 29 g/dL (32-36); MEAN CORPUSCULAR VOLUME 101 fL (80-99); MEAN PLATELET VOLUME 9.7 fL (9.0-12.2); MONOCYTES % (AUTO) 5 % (0-12); NEUTROPHILS % (AUTO) 73 % (42-75); PLATELET COUNT 350 10^3/uL (130-400); WHITE BLOOD COUNT 10.6 10^3/uL (4.3-11.0)
[2021-03-06 11:56] LABS: EOSINOPHILS # (AUTO) 0.2 10^3/uL (0.0-0.3); LYMPHOCYTES # (AUTO) 2.1 10^3/uL (1.0-4.0); MONOCYTES # (AUTO) 0.5 10^3/uL (0.0-1.0); NEUTROPHILS # (AUTO) 7.7 10^3/uL (1.8-7.8)
[2021-03-06 12:00] VITALS: BP 133/65
[2021-03-06 12:14] LABS: ALANINE AMINOTRANSFERASE 16 U/L (0-55); ALBUMIN 3.5 GM/DL (3.2-4.5); ALKALINE PHOSPHATASE 93 U/L (40-136); BILIRUBIN,TOTAL 0.3 MG/DL (0.1-1.0); BUN/CREATININE RATIO 16; CALCIUM 8.9 MG/DL (8.5-10.1); CARBON DIOXIDE 28 MMOL/L (21-32); CHLORIDE 103 MMOL/L (98-107); GFR ESTIMATED > 60; GLUCOSE 117 MG/DL (70-105); MAGNESIUM 1.6 MG/DL (1.6-2.4); PHOSPHORUS 1.7 MG/DL (2.3-4.7); POTASSIUM 3.8 MMOL/L (3.6-5.0); SODIUM 139 MMOL/L (135-145); TOTAL PROTEIN 8.4 GM/DL (6.4-8.2)
[2021-03-06] MEDS ORDERED: LACTATED RINGERS 1,000 ML IV ONE (12:45)
[2021-03-06] MEDS ORDERED: MELATONIN 3 MG TABLET PO PRN (14:00)
[2021-03-06] MEDS ORDERED: MILK OF MAGNESIA 400 MG/5 ML 30 ML UDC PO PRN (14:00)
[2021-03-06] MEDS ORDERED: ANTACID SUSP 30 ML UDC (MYLANTA) PO PRN (14:00)
[2021-03-06] MEDS ORDERED: polyethylene glycoL POWDER 17 GM (MIRALAX) PACK PO PRN (14:00)
[2021-03-06] MEDS ORDERED: POT PHOS/NA PHOS (K-PHOS NEUTRAL) PO NR (14:00)
[2021-03-06] MEDS ORDERED: ONDANSETRON 4 MG (ZOFRAN) ORAL DISSOLVE TAB PO PRN (14:00)
[2021-03-06] MEDS ORDERED: diphenhydrAMINE 25 MG TAB (BENADRYL) PO PRN (14:00)
[2021-03-06] MEDS ORDERED: ACETAMINOPHEN 325 MG TABLET PO PRN (14:00)
[2021-03-06] MEDS ORDERED: ONDANSETRON 4 MG/2 ML (SDV) Z0FRAN IV PRN (14:00)
[2021-03-06] MEDS: RT-ALBUTEROL/IPRATROPIUM 3 ML (DUONEB) VIAL INH SCH ×3 (15:03→21:43)
[2021-03-06 15:14] LABS: ABG BASE EXCESS 3.6 MMOL/L (-2.5-2.5); ABG OXYGEN SATURATION 93 % (94-100); ABG PCO2 53 MMHG (35-45); ABG PH 7.36 (7.37-7.43); ABG PO2 71 MMHG (79-93); ABG TCO2 30.2 MMOL/L (21.0-31.0)
[2021-03-06] MEDS: ENOXAPARIN 40 MG/0.4 ML (LOVENOX) SYR SC SCH (15:25)
[2021-03-06 15:28] LABS: ALLENS TEST POS; INSPIRED O2 2L; PATIENT TEMP 37.3; VENTILATOR NO
[2021-03-06] MEDS: LACTATED RINGERS 1,000 ML IV SCH ×3 (15:48→22:03)
[2021-03-06 15:56] VITALS: BP 119/74
[2021-03-06] MEDS: RT--FLUTICASONE/SALMETEROL 113-14 (AIRDUO RespiCLICK) IH SCH (18:36)
[2021-03-06 19:33] VITALS: BP 120/74
[2021-03-06] MEDS ORDERED: ADVAIR HFA 115/21 MCG INHALER 8 GM IH SCH (21:00)
[2021-03-06 23:47] VITALS: BP 104/62
[2021-03-07] MEDS: RT-ALBUTEROL/IPRATROPIUM 3 ML (DUONEB) VIAL INH SCH ×6 (02:13→21:45)
[2021-03-07 03:26] VITALS: BP 115/63
[2021-03-07] MEDS: LACTATED RINGERS 1,000 ML IV SCH ×3 (04:46→19:28)
[2021-03-07 07:26] VITALS: BP 124/76
[2021-03-07] MEDS: RT--FLUTICASONE/SALMETEROL 113-14 (AIRDUO RespiCLICK) IH SCH ×2 (07:45→21:45)
--- NOTE | 2021-03-07 07:47 | Pulmonary Consultation ---
History of Present Illness History of Present Illness Date Seen by Provider: Mar 07, 2021 Time Seen by Provider: 07:46 Date of Admission History of Present Illness 55yo past medical history of chronic respiratory failure on home oxygen, COPD, obesity hypoventilation syndrome on BiPAP, history of cervical cancer, partial colectomy with colostomy in place. directly admitted from my office secondary to worsening SOB. She denies any fevers or chills. She denies any chest pain or palpitations. She has chronic orthopnea. She wears BiPAP at night. Allergies and Home Medications Allergies Coded Allergies: Penicillins (Verified Allergy, Unknown, 03/04/17) gabapentin (Verified Allergy, Unknown, 03/11/21) Home Medications Cefdinir 300 Mg Capsule, 300 MG PO BID Prescribed by: TYLER DANIELSON on 03/08/21 1001 Duloxetine HCl 60 Mg Capsule.dr, 60 MG PO DAILY, (Reported) LAST FILLED 08-04-2020 #90/90 DAY SUPPLY Fluticasone/Umeclidin/Vilanter 1 Each Blst.w.dev, 1 PUFF INH DAILY, (Reported) Folic Acid 1 Mg Tablet, 1 MG PO DAILY Prescribed by: TYLER DANIELSON on 03/08/21 1001 Hydrocodone/Acetaminophen 1 Each Tablet, 1 EA PO Q6H PRN for PAIN-MODERATE (5- 7), (Reported) Past Zfkomee-Kgnlag-Zjiohr Hx Patient Social History 2nd Hand Smoke Exposure: No Recent Hopitalizations: No Have you traveled recently?: No Alcohol Use?: No Immunizations Up To Date Tetanus Booster (TDap): Unknown Seasonal Allergies Seasonal Allergies: No Past Medical History Surgeries: Yes (HERNIA, FOOT) Abdominal, Gallbladder, Hysterectomy, Orthopedic Respiratory: Yes (pulmonary hypertension) Asthma Currently Using CPAP: No Currently Using BIPAP: No Cardiac: Yes (pulmonary hypertension, tachycardia) High Cholesterol, Hypertension Neurological: Yes Neuropathy Reproductive Disorders: No HIGH TENSION TESTER History: Hysterectomy Gastrointestinal: Yes Gastroesophageal Reflux Musculoskeletal: Yes Arthritis, Fibromyalgia Endocrine: Yes Hypothyroidsim Cancer: No Psychosocial: Yes Anxiety Integumentary: No Blood Disorders: No Family Medical History No Pertinent Family Hx Review of Systems Time Seen by Provider: 07:47 Sepsis Event Evaluation Height, Weight, BMI Height: 5'4.00" Weight: 307lbs. 9.6oz. 139.309067vi; 51.48 BMI Method:Stated Exam Exam Vital Signs Date Time Temp Pulse Resp B/P (MAP) Pulse Ox O2 Delivery O2 Flow Rate FiO2 03/07/21 07:26 35.7 85 20 124/76 (92) 96 Nasal Cannula 3.00 03/07/21 03:26 37.0 95 18 115/63 (80) 94 Nasal Cannula 3.00 03/07/21 02:13 96 Nasal Cannula 3.00 03/07/21 01:00 89 03/06/21 23:47 36.7 92 18 104/62 (76) 95 Nasal Cannula 3.00 03/06/21 21:43 95 Nasal Cannula 3.00 03/06/21 20:43 92 Nasal Cannula 3.00 03/06/21 19:33 37.1 101 20 120/74 (89) 93 Nasal Cannula 3.00 03/06/21 19:00 99 03/06/21 18:38 93 Nasal Cannula 3.00 03/06/21 18:36 93 Nasal Cannula 3.00 03/06/21 15:56 37.2 108 20 119/74 (89) 97 Nasal Cannula 3.00 03/06/21 15:03 94 Nasal Cannula 2.00 03/06/21 13:52 108 03/06/21 12:37 94 Nasal Cannula 3.00 03/06/21 12:00 37.2 128 22 133/65 (87) 93 Nasal Cannula 3.00 I & O 03/07/21 07:00 Intake Total 3240 ml Output Total 1050 ml Balance 2190 ml Height & Weight Height: 5'4.00" Weight: 307lbs. 9.6oz. 139.318356en; 51.48 BMI Method:Stated General Appearance: Anxious, Moderate Distress HEENT: PERRL/EOMI, Pharynx Normal Neck: Full Range of Motion, Non Tender, Supple Respiratory: Chest Non Tender, No Accessory Muscle Use, No Respiratory Distress, Crackles, Decreased Breath Sounds Cardiovascular: Regular Rate, Rhythm, No Edema Capillary Refill: Less Than 3 Seconds Gastrointestinal: normal bowel sounds, non tender, soft Extremity: Normal Capillary Refill, Normal Inspection, No Pedal Edema Neurologic/Psychiatric: Alert Skin: Normal Color, Warm/Dry Lymphatic: No Adenopathy Results Lab Laboratory Tests 03/06/21 11:40 Assessment/Plan Assessment/Plan Acute on chronic respiratory failure ACE with OHS -Pt uses home BiPAP COPD -Duoneb and advair -Oxygen metabolic lactic acidosis -Improved KIRSTIE POWERS DO Mar 07, 2021 07:47
[2021-03-07 08:29] LABS: BILIRUBIN,URINE NEGATIVE (NEGATIVE); CLARITY,URINE CLOUDY; COLOR,URINE YELLOW; GLUCOSE, URINE (UA) NEGATIVE (NEGATIVE); KETONES,URINE NEGATIVE (NEGATIVE); LEUKOCYTE ESTERASE ,URINE 2+ (NEGATIVE); NITRITE,URINE POSITIVE (NEGATIVE); PROTEIN,URINE NEGATIVE (NEGATIVE)
[2021-03-07 08:35] LABS: AMORPHOUS SEDIMENT,UR RARE AMOR URATES /LPF; BACTERIA,URINE LARGE /HPF; RBC,URINE 0-2 /HPF; WBC,URINE 50-100 /HPF
--- NOTE | 2021-03-07 08:47 | Diagnostic Imaging Report ---
EXAMINATION: Portable erect AP chest at 8:02 AM INDICATION: Shortness of breath The cardiomegaly noted on the prior exam of 05/24/2019 is again evident and not significantly changed. The central pulmonary vascularity and the interstitial densities in both lungs, however, do seem slightly more prominent than on the prior exam. I am concerned that there is now an element of mild pulmonary congestion present. There is no confluent pneumonia identified nor is there any sign of significant pleural effusion. The mediastinum is not widened. The osseous structures are intact. IMPRESSION: The slight prominence of the central pulmonary vascularity and the interstitial densities in both lungs when compared to the prior study does raise a question of mild pulmonary congestion. Clinical follow-up is recommended. Dictated by: Dictated on workstation # [id number]
[2021-03-07] MEDS ORDERED: FLUT1BLS3 INH (09:01)
[2021-03-07] MEDS ORDERED: HYDR-3817 PO (09:01)
[2021-03-07] MEDS ORDERED: DULO60CA59 PO (09:12)
[2021-03-07 11:42] VITALS: BP 126/60
--- NOTE | 2021-03-07 12:23 | History & Physical-Hospitalist ---
History of Present Illness HPI/Chief Complaint Kaitlyn Chopra is a 55-year-old female with past medical history of chronic respiratory failure on home oxygen, COPD, obesity hypoventilation syndrome on BiPAP, history of cervical cancer, partial colectomy with colostomy in place, who presented with shortness of breath. She was seen in Dr. Pickens's clinic and was directly admitted to the hospital. She had been feeling more short of breath than usual. She has a chronic cough. She denies any fevers or chills. She denies any chest pain or palpitations. She has chronic orthopnea. She wears BiPAP at night. She is unsure of the settings but reports that they are "the highest setting possible". She has not noticed any increase in her lower extremity swelling. Source: patient Exam Limitations: no limitations Date Seen 03/07/21 Time Seen by a Provider: 10:45 Attending Physician Georgia Danielson MD [facility] [place]ending [facility] To [facility] Referring Physician Date of Admission Mar 06, 2021 at 10:58 Home Medications & Allergies Home Medications Reviewed patient Home Medication Reconciliation performed by pharmacy medication reconciliations mechanical design technician and/or nursing. Patients Allergies have been reviewed. Allergies Allergies Coded Allergies Penicillins (Verified Allergy, Unknown, 03/04/17) Patient Social History Tobacco Use?: No Use of E-Cig and/or Vaping dev: No Substance use?: No Alcohol Use?: No Pt stated abuse/neglect: No Immunizations Up To Date Influenza Vaccine Up-to-Date: Yes; Up-to-Date First/Initial COVID19 Vaccinat: 02/07/21 Second COVID19 Vaccination Eduardo: DUE SATURDAY Tetanus Booster (TDap): More Than 5 Years Hepatitis A: No Hepatitis B: No TB Skin Test: None Current Status status: No status: No Do you have an Advance Directi: No Communicates: Verbally Primary Language: Norwegian Preferred Spoken Language: Norwegian Is interpretation needed?: No Sensory deficits: Vision impairment Implanted or Applied Medical D: BiPAP Past Medical History PMHx: Cervical cancer s/p radiation and pelvic exenteration Colostomy in place 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 SurgHx: Right foot surgeries after trauma Cholecystectomy Pelvic exenteration with colostomy and diverting ureteral to ileal ostomy Family Medical History Family Hx: Non-contributory Review of Systems Constitutional: no symptoms reported EENTM: no symptoms reported Respiratory: cough, orthopnea, short of breath Cardiovascular: no symptoms reported Gastrointestinal: no symptoms reported Genitourinary: no symptoms reported Musculoskeletal: no symptoms reported Skin: no symptoms reported Psychiatric/Neurological: No Symptoms Reported Physical Exam Physical Exam Vital Signs Vital Signs - First Documented 03/06/21 12:00 Temp 37.2 Pulse 128 Resp 22 B/P (MAP) 133/65 (87) Pulse Ox 93 O2 Delivery Nasal Cannula O2 Flow Rate 3.00 Capillary Refill : Height, Weight, BMI Height: 5'4.00" Weight: 307lbs. 9.6oz. 139.196346si; 51.48 BMI Method:Stated General Appearance: No Apparent Distress, Obese HEENT: PERRL/EOMI, Pharynx Normal Neck: Normal Inspection, Supple Respiratory: No Respiratory Distress, Decreased Breath Sounds, Other (wearing nasal cannula) Cardiovascular: Regular Rate, Rhythm, No Murmur Gastrointestinal: Normal Bowel Sounds, Non Tender, Soft, Other (colostomy in pl vita) Extremity: Normal Inspection, Pedal Edema Neurologic/Psychiatric: Alert, Oriented x3, Normal Mood/Affect Skin: Normal Color, Warm/Dry Results Results/Procedures Labs Laboratory Tests 03/06/21 11:40 Patient resulted labs reviewed. Imaging: Reviewed Imaging Report Assessment/Plan Admission Diagnosis Acute on chronic respiratory failure with hypoxia Admission Status: Observation Assessment and Plan Acute on chronic respiratory failure with hypoxia and hypercapnia COPD Obesity hypoventilation syndrome on BiPAP Super obesity Oxygen requirement at baseline 3L Afebrile, normal WBC, procalcitonin normal Chest xray with mild pulmonary congestion ABG with mild acute hypercapnia Continue inhalers Pulmonology following, appreciate assistance Lactic acidosis 3 on arrival, down to 1 with fluids Decrease fluids UTI UA consistent with UTI Urine culture pending Begin Rocephin Macrocytic anemia Hgb 9.7 Check B12/Folate/Iron studies DVT prophylaxis: Lovenox Diagnosis/Problems Diagnosis/Problems (1) Acute on chronic respiratory failure with hypoxia and hypercapnia Status: Acute (2) Super obesity Status: Chronic (3) Obesity hypoventilation syndrome Status: Chronic (4) Obstructive sleep apnea treated with BiPAP Status: Chronic (5) Macrocytic anemia Status: Acute (6) UTI (urinary tract infection) Status: Acute GEORGIA DANIELSON MD Mar 07, 2021 12:23
[2021-03-07] MEDS ORDERED: cefTRIAXone FOR IV USE 2,000 MG in WATER (STERILE) FOR INJECTION 20 ML IV SCH (13:00)
[2021-03-07 15:10] VITALS: BP 125/79
[2021-03-07] MEDS: ENOXAPARIN 40 MG/0.4 ML (LOVENOX) SYR SC SCH (15:45)
[2021-03-07 20:00] VITALS: BP 116/75
[2021-03-08] VITALS: BP 126/72
[2021-03-08] MEDS: RT-ALBUTEROL/IPRATROPIUM 3 ML (DUONEB) VIAL INH SCH ×3 (02:19→11:05)
[2021-03-08] MEDS: LACTATED RINGERS 1,000 ML IV SCH ×2 (02:42→10:00)
[2021-03-08 04:00] VITALS: BP 115/72
[2021-03-08] MEDS ORDERED: MAGNESIUM 1 GM/100 ML IVPB 100 ML IV SCH (06:00)
[2021-03-08] MEDS ORDERED: POTASSIUM CL 10MEQ/50ML IVPB 50 ML IV SCH (06:00)
[2021-03-08] MEDS ORDERED: KCL 20 MEQ TAB (K-DUR) PO SCH (06:00)
[2021-03-08 06:34] LABS: BASOPHILS % (AUTO) 0 % (0-10); EOSINOPHILS # (AUTO) 0.2 10^3/uL (0.0-0.3); EOSINOPHILS % (AUTO) 3 % (0-10); HEMATOCRIT 35 % (35-52); HEMOGLOBIN 10.3 g/dL (11.5-16.0); LYMPHOCYTES # (AUTO) 1.2 10^3/uL (1.0-4.0); LYMPHOCYTES % (AUTO) 23 % (12-44); MEAN CORPUSCULAR HEMOGLOBIN 29 pg (25-34); MEAN CORPUSCULAR HGB CONC 29 g/dL (32-36); MEAN CORPUSCULAR VOLUME 101 fL (80-99); MEAN PLATELET VOLUME 9.8 fL (9.0-12.2); MONOCYTES # (AUTO) 0.4 10^3/uL (0.0-1.0); MONOCYTES % (AUTO) 8 % (0-12); NEUTROPHILS # (AUTO) 3.5 10^3/uL (1.8-7.8); NEUTROPHILS % (AUTO) 66 % (42-75); PLATELET COUNT 232 10^3/uL (130-400); WHITE BLOOD COUNT 5.3 10^3/uL (4.3-11.0)
[2021-03-08 06:46] LABS: CHLORIDE 100 MMOL/L (98-107); POTASSIUM 4.3 MMOL/L (3.6-5.0); SODIUM 137 MMOL/L (135-145)
[2021-03-08 06:47] LABS: CALCIUM 8.7 MG/DL (8.5-10.1)
[2021-03-08 06:48] LABS: GLUCOSE 92 MG/DL (70-105)
[2021-03-08 06:49] LABS: CARBON DIOXIDE 28 MMOL/L (21-32)
[2021-03-08 06:51] LABS: PHOSPHORUS 2.3 MG/DL (2.3-4.7)
[2021-03-08 06:52] LABS: BUN/CREATININE RATIO 15; CREATININE SERUM 0.75 MG/DL (0.60-1.30); GFR ESTIMATED > 60
[2021-03-08 06:54] LABS: MAGNESIUM 1.8 MG/DL (1.6-2.4)
[2021-03-08] MEDS: RT--FLUTICASONE/SALMETEROL 113-14 (AIRDUO RespiCLICK) IH SCH (07:25)
--- NOTE | 2021-03-08 07:38 | Pulmonary Progress Note ---
Subjective Time Seen by a Provider: 07:37 Subjective/Events-last exam PT appears to be improving Sepsis Event Evaluation Height, Weight, BMI Height: 5'4." Weight: 307lbs. 9.6oz. 139.857531rt; 51.48 BMI Method:Stated Focused Exam Lactate Level 03/06/21 11:40: Lactic Acid Level 3.01*H 03/06/21 13:55: Lactic Acid Level 1.07 Exam Exam Vital Signs Date Time Temp Pulse Resp B/P (MAP) Pulse Ox O2 Delivery O2 Flow Rate FiO2 03/08/21 04:00 37.0 98 20 115/72 (86) 93 NIV CPAP 4.00 03/08/21 01:00 84 03/08/21 00:00 37.0 97 20 126/72 (90) 92 NIV CPAP 4.00 03/07/21 21:47 93 Nasal Cannula 3.00 03/07/21 21:45 93 Nasal Cannula 3.00 03/07/21 20:00 37.5 96 20 116/75 (89) 95 Nasal Cannula 3.00 03/07/21 20:00 Nasal Cannula 3.00 03/07/21 19:00 96 03/07/21 18:45 95 Nasal Cannula 3.00 03/07/21 15:10 37.3 102 18 125/79 (94) 96 Nasal Cannula 3.00 03/07/21 14:42 97 Nasal Cannula 3.00 03/07/21 12:13 95 03/07/21 11:42 36.1 98 16 126/60 (82) 95 Nasal Cannula 3.00 03/07/21 11:06 96 Nasal Cannula 3.00 03/07/21 08:00 96 Nasal Cannula 3.00 03/07/21 07:46 96 Nasal Cannula 3.00 03/07/21 07:45 96 Nasal Cannula 3.00 I & O 03/08/21 06:59 Intake Total 2420 ml Output Total 3300 ml Balance -880 ml Height & Weight Height: 5'4.00" Weight: 307lbs. 9.6oz. 139.677711px; 51.48 BMI Method:Stated General Appearance: No Apparent Distress, Obese HEENT: PERRL/EOMI, Pharynx Normal Neck: Normal Inspection, Supple Respiratory: No Respiratory Distress, Decreased Breath Sounds, Other (wearing nasal cannula) Cardiovascular: Regular Rate, Rhythm, No Murmur Extremity: Normal Inspection, Pedal Edema Neurologic/Psychiatric: Alert, Oriented x3, Normal Mood/Affect Skin: Normal Color, Warm/Dry Results Lab Laboratory Tests 03/06/21 11:40 03/08/21 05:39 Assessment/Plan Assessment/Plan Acute on chronic respiratory failure ACE with OHS -Pt uses home BiPAP COPD -Duoneb and advair -Oxygen metabolic lactic acidosis -Improved UTI Rocephin -Cultures pending KIRSTIE POWERS DO Mar 08, 2021 07:37
[2021-03-08 08:00] VITALS: BP 126/61
[2021-03-08] MEDS ORDERED: CYANOCOBALAMIN INJ 1000 MCG/ML IM ONE (08:15)
[2021-03-08 08:20] VITALS: BP 126/61
[2021-03-08] MEDS ORDERED: FOLIC ACID 1 MG TAB PO SCH (09:00)
[2021-03-08] MEDS ORDERED: FOLI1TAB33 PO (10:01)
[2021-03-08] MEDS ORDERED: CEFD300C3 PO (10:01)
--- NOTE | 2021-03-08 11:28 | Discharge Summary ---
Discharge Summary Hospital Course Was the Problem List Reviewed?: Yes Problems/Dx: (1) Acute on chronic respiratory failure with hypoxia and hypercapnia Status: Acute (2) Super obesity Status: Chronic (3) Obesity hypoventilation syndrome Status: Chronic (4) Obstructive sleep apnea treated with BiPAP Status: Chronic (5) Macrocytic anemia Status: Acute (6) UTI (urinary tract infection) Status: Acute Hospital Course Date of Admission: Mar 06, 2021 at 10:58 Admission Diagnosis: Acute on chronic respiratory failure with hypoxia and hypercapnia Family Physician/Provider: Edita Badillo Date of Discharge: 03/08/21 Discharge Diagnosis: Acute on chronic respiratory failure with hypoxia and hypercapnia Hospital Course: Kaitlyn Chopra is a 55-year-old female with super obesity, obstructive sleep apnea/obesity hypoventilation syndrome on BiPAP, COPD, who presented with acute on chronic respiratory failure with hypoxia and hypercapnia. Her symptoms quickly improved. Her work-up was unrevealing. She was found to have a urinary tract infection was started on IV antibiotics while in the hospital and was prescribed Omnicef on discharge. She was found to be slightly anemic and was found to have a folic acid and vitamin B12 deficiency. She was started on folic acid supplementation and received a dose of IV vitamin B12 prior to discharge. She should continue these supplements. She should follow-up with her primary care physician in 1 to 2 weeks. She should follow-up with pulmonology in 2 to 3 weeks. Labs and Pending Lab Test: Laboratory Tests 03/08/21 05:39: White Blood Count 5.3, Red Blood Count 3.51L, Hemoglobin 10.3L, Hematocrit 35, Mean Corpuscular Volume 101H, Mean Corpuscular Hemoglobin 29, Mean Corpuscular Hemoglobin Concent 29L, Red Cell Distribution Width 16.0H, Platelet Count 232, Mean Platelet Volume 9.8, Immature Granulocyte % (Auto) 0, Neutrophils (%) (Auto) 66, Lymphocytes (%) (Auto) 23, Monocytes (%) (Auto) 8, Eosinophils (%) (Auto) 3, Basophils (%) (Auto) 0, Neutrophils # (Auto) 3.5, Lymphocytes # (Auto) 1.2, Monocytes # (Auto) 0.4, Eosinophils # (Auto) 0.2, Basophils # (Auto) 0.0, Immature Granulocyte # (Auto) 0.0, Sodium Level 137, Potassium Level 4.3, Chloride Level 100, Carbon Dioxide Level 28, Anion Gap 9, Blood Urea Nitrogen 11, Creatinine 0.75, Estimat Glomerular Filtration Rate > 60, BUN/Creatinine Ratio 15, Glucose Level 92, Calcium Level 8.7, Phosphorus Level 2.3, Magnesium Level 1.8 Microbiology 03/07/21 Urine Culture - Preliminary, Resulted Mixed Bacterial Yoon With Escherichia coli 03/06/21 Blood Culture - Preliminary, Resulted No growth Home Meds Active Cefdinir 300 Mg Capsule 300 Mg PO BID 5 Days Folic Acid 1 Mg Tablet 1 Mg PO DAILY 30 Days Reported Duloxetine HCl 60 Mg Capsule.dr 60 Mg PO DAILY LAST FILLED 08-04-2020 #90/ DAY SUPPLY Trelegy Ellipta 100-62.5-25 (Fluticasone/Umeclidin/Vilanter) 1 Each Blst.w.dev 1 Puff INH DAILY Hydrocodone-Acetamin 7.5-325 (Hydrocodone/Acetaminophen) 1 Each Tablet 1 Ea PO Q6H PRN Assessment/Pt Instructions Take medications as prescribed. Begin taking folic acid supplementation. You have been given your first injection of vitamin B12, this will need to be continued by her primary care physician. Continue supplemental oxygen. Continue wearing BiPAP at night. Follow-up with pulmonology in 2 to 3 weeks. Follow-up with your primary care physician in 1 or 2 weeks. Discharge Planning: <30 minutes discharge planning Discharge Instructions Discharge Diet: No Restrictions Activity as Tolerated: Yes Discharge Physical Examination Vital Signs Vital Signs Date Time Temp Pulse Resp B/P (MAP) Pulse Ox O2 Delivery O2 Flow Rate FiO2 03/08/21 08:20 36.4 100 16 126/61 (82) 94 Nasal Cannula 3.00 General Appearance: No Apparent Distress, Obese Respiratory: No Respiratory Distress, Decreased Breath Sounds Cardiovascular: Regular Rate, Rhythm, No Murmur Gastrointestinal: Normal Bowel Sounds, Non Tender, Soft Extremity: Normal Inspection, Non Tender, No Pedal Edema Skin: Normal Color, Warm/Dry Neurologic/Psychiatric: Alert, Oriented x3, No Motor/Sensory Deficits, Normal Mood/Affect Allergies: Coded Allergies: Penicillins (Verified Allergy, Unknown, 03/04/17) Discharge Summary Date of Admission Mar 06, 2021 at 10:58 Date of Discharge Discharge Date: Mar 08, 2021 Discharge Time: 11:23 Admission Diagnosis Acute on chronic respiratory failure with hypoxia Consults/Procedures Consulations Pulmonology Discharge Diagnosis Acute on chronic respiratory failure with hypoxia and hypercapnia (1) Acute on chronic respiratory failure with hypoxia and hypercapnia Status: Acute (2) Super obesity Status: Chronic (3) Obesity hypoventilation syndrome Status: Chronic (4) Obstructive sleep apnea treated with BiPAP Status: Chronic (5) Macrocytic anemia Status: Acute (6) UTI (urinary tract infection) Status: Acute TYLER DANIELSON MD Mar 08, 2021 11:22
[2021-03-08 12:20] VITALS: BP 126/61
== END 2021-03-08 10:00 | disposition home or self-care (01) ==
LOC: 4TH 10:58 → UNDOADMOB 10:58 → 4TH 11:15 → UNDODISOB 03-08 12:18
PROVIDERS: ADMIT Internal Medicine; ATTEND Internal Medicine
DX: J96.22 Acute and chronic respiratory failure with hypercapnia (principal); J96.21 Acute and chronic respiratory failure with hypoxia; N39.0 Urinary tract infection, site not specified; D64.9 Anemia, unspecified; J44.9 Chronic obstructive pulmonary disease, unspecified; E87.2 Acidosis; J45.909 Unspecified asthma, uncomplicated; E78.00 Pure hypercholesterolemia, unspecified; I10 Essential (primary) hypertension; K21.9 Gastro-esophageal reflux disease without esophagitis; M19.90 Unspecified osteoarthritis, unspecified site; M79.7 Fibromyalgia; G62.9 Polyneuropathy, unspecified; E03.9 Hypothyroidism, unspecified; E66.2 Morbid (severe) obesity with alveolar hypoventilation; F41.9 Anxiety disorder, unspecified; Z88.0 Allergy status to penicillin; Z79.899 Other long term (current) drug therapy; Z79.891 Long term (current) use of opiate analgesic; Z90.710 Acquired absence of both cervix and uterus; Z99.89 Dependence on other enabling machines and devices; Z85.41 Personal history of malignant neoplasm of cervix uteri; Z90.49 Acquired absence of other specified parts of digestive tract; Z68.44 Body mass index [BMI] 60.0-69.9, adult; Z88.8 Allergy status to other drugs, medicaments and biological substances
CPT/HCPCS: 36600; 71045; 80048; 80053; 81000; 82607; 82728; 82746; 82805; 83540; 83550; 83605; 83735 ×2; 84100 ×2; 84145; 84484; 85025 ×2; 87040; 87077; 87088; 87186; 94640 ×6; 94760 ×3; G0378; G0379; 36415; 99211

== ENCOUNTER 2021-03-11 09:48 | Emergency (ER) | payer MEDICARE, MEDICAID ==
[~2021-03-11] VITALS: Ht 160 cm; Wt 149.0 kg
[~2021-03-11 09:48] MED LIST changes: +CEFD300C3 PO; +FLUT1BLS3 INH; +FOLI1TAB33 PO; +HYDR-3817 PO
[2021-03-11] MEDS ORDERED: LACTATED RINGERS 1,000 ML IV ONE ×2 (10:15)
[2021-03-11] MEDS ORDERED: VANCOMYCIN INJECTION 2,000 MG in NS IV 500 ML 500 ML IV ONE (10:18)
--- NOTE | 2021-03-11 10:18 | ED General ---
General Chief Complaint: Lower Extremity Stated Complaint: R SIDE FACE SWOLLEN Source of Information: Patient, Family Exam Limitations: No Limitations History of Present Illness Date Seen by Provider: Mar 11, 2021 Time Seen by Provider: 09:59 Initial Comments Patient presents ER by private conveyance from home with chief complaint of 1 day progressively worsening pain and swelling in her right face. No problems with her ear or hearing. She has never had anything like this before. She says she had mastoiditis on the contralateral side many years ago and this feels different. She is not having any difficulty with dry mouth but she has too much pain to eat or drink since yesterday. She denies nausea and rates her pain as an 8 out of 10. There is no discharge in the mouth. No teeth that are sore. She is close to being in remission from her second round of cervical cancer from 2018. Her initial diagnosis was in the 90s. She has a ileostomy and colostomy. She follows with Dr. Cordon and Dr. Duff in [place]. She took a hydrocodone 7.5 this morning and it did not help her pain. Allergies and Home Medications Allergies Coded Allergies: Penicillins (Verified Allergy, Unknown, 03/04/17) gabapentin (Verified Allergy, Unknown, 03/11/21) Home Medications Cefdinir 300 Mg Capsule, 300 MG PO BID Prescribed by: TYLER DANIELSON on 03/08/21 1001 Duloxetine HCl 60 Mg Capsule.dr, 60 MG PO DAILY, (Reported) LAST FILLED 08-04-2020 #90/90 DAY SUPPLY Fluticasone/Umeclidin/Vilanter 1 Each Blst.w.dev, 1 PUFF INH DAILY, (Reported) Folic Acid 1 Mg Tablet, 1 MG PO DAILY Prescribed by: TYLER DANIELSON on 03/08/21 1001 Hydrocodone/Acetaminophen 1 Each Tablet, 1 EA PO Q6H PRN for PAIN-MODERATE (5- 7), (Reported) Patient Home Medication List Home Medication List Reviewed: Yes Review of Systems Review of Systems Constitutional: No chills, No diaphoresis EENTM: see HPI; No ear discharge, No ear pain Respiratory: No cough, No short of breath Cardiovascular: No chest pain, No palpitations Gastrointestinal: No abdominal pain, No nausea Genitourinary: No discharge, No dysuria : No Musculoskeletal: No back pain, No joint pain Skin: see HPI All Other Systems Reviewed Negative Unless Noted: Yes Past Vhhllkd-Pjzjdj-Rxeask Hx Patient Social History Alcohol Use: Denies Use Smoking Status: Never a Smoker 2nd Hand Smoke Exposure: No Recent Hopitalizations: No Immunizations Up To Date Tetanus Booster (TDap): Unknown Seasonal Allergies Seasonal Allergies: No Past Medical History Surgeries: Yes (HERNIA, FOOT) Abdominal, Gallbladder, Hysterectomy, Orthopedic Respiratory: Yes (pulmonary hypertension) Asthma Currently Using CPAP: No Currently Using BIPAP: No Cardiac: Yes (pulmonary hypertension, tachycardia) High Cholesterol, Hypertension Neurological: Yes Neuropathy Reproductive Disorders: No [employer] History: Hysterectomy Gastrointestinal: Yes Gastroesophageal Reflux Musculoskeletal: Yes Arthritis, Fibromyalgia Endocrine: Yes Hypothyroidsim Cancer: No Psychosocial: Yes Anxiety Integumentary: No Blood Disorders: No Family Medical History No Pertinent Family Hx Non-contributory Physical Exam-Suspected Sepsis Physical Exam Vital Signs Vital Signs - First Documented 03/11/21 03/11/21 09:48 09:50 Temp 36.9 Pulse 144 Resp 20 B/P (MAP) 194/95 (128) Pulse Ox 95 O2 Delivery Nasal Cannula O2 Flow Rate 3.00 Capillary Refill : Height, Weight, BMI Height: 5'4.00" Weight: 307lbs. 9.6oz. [id number]; 51.48 BMI Method:Stated General Appearance: Moderate Distress, Obese Eyes: Bilateral Eye Normal Inspection, Bilateral Eye PERRL, Bilateral Eye EOMI HEENT: PERRL/EOMI, TMs Normal, Pharynx Normal; No Moist Mucous Membranes; Other (Soft tissue swelling around the angle of the right jaw extending up the ramus and to the anterior portion of the ear. Induration approximately 4 cm wide without fluctuance or pointing.) Neck: Full Range of Motion, Normal Inspection Respiratory: Lungs Clear, Normal Breath Sounds, No Accessory Muscle Use, No Respiratory Distress Cardiovascular: Regular Rate, Rhythm, No Edema, Normal Peripheral Pulses Extremity: Normal Capillary Refill, Normal Inspection Neurologic/Psychiatric: Alert, Oriented x3 Skin: other (Erythematous, indurated, tender to palpation area of swelling on the right jaw) Focused Exam Lactate Level 03/11/21 10:10: Lactic Acid Level 1.56 Lactic Acid Level Laboratory Tests Test 03/11/21 10:10 Lactic Acid Level 1.56 MMOL/L (0.50-2.00) Progress/Results/Core Measures Suspected Sepsis SIRS Temperature: Pulse: Respiratory Rate: Laboratory Tests 03/11/21 10:40: White Blood Count 9.0 Blood Pressure / Mean: 03/11/21 10:10: 03/11/21 10:10: Lactic Acid Level 1.56 03/11/21 10:10: Lactic Acid Level 1.56 Laboratory Tests 03/11/21 10:40: Creatinine 0.77, INR Comment 1.0, Platelet Count 254, Total Bilirubin 0.4 Results/Orders Lab Results Laboratory Tests Test 03/11/21 10:10 03/11/21 10:24 03/11/21 10:40 Range/Units Lactic Acid Level 1.56 0.50-2.00 MMOL/L Urine Color YELLOW Urine Clarity CLOUDY Urine pH 6.0 5-9 Urine Specific [place] 1.020 1.016-1.022 Urine Protein TRACE H NEGATIVE Urine Glucose (UA) NEGATIVE NEGATIVE Urine Ketones NEGATIVE NEGATIVE Urine Nitrite NEGATIVE NEGATIVE Urine Bilirubin NEGATIVE NEGATIVE Urine Urobilinogen 0.2 < = 1.0 MG/DL Urine Leukocyte Esterase TRACE H NEGATIVE Urine RBC (Auto) 1+ H NEGATIVE Urine RBC RARE /HPF Urine WBC 5-10 H /HPF Urine Crystals NONE /LPF Urine Bacteria FEW H /HPF Urine Casts NONE /LPF Urine Mucus NEGATIVE /LPF Urine Culture Indicated CULTURE PENDING White Blood Count 9.0 4.3-11.0 10^3/uL Red Blood Count 3.56 L 3.80-5.11 10^6/uL Hemoglobin 10.5 L 11.5-16.0 g/dL Hematocrit 35 35-52 % Mean Corpuscular Volume 99 80-99 fL Mean Corpuscular Hemoglobin 30 25-34 pg Mean Corpuscular Hemoglobin Concent 30 L 32-36 g/dL Red Cell Distribution Width 15.4 H 10.0-14.5 % Platelet Count 254 130-400 10^3/uL Mean Platelet Volume 9.5 9.0-12.2 fL Immature Granulocyte % (Auto) 0 % Neutrophils (%) (Auto) 75 42-75 % Lymphocytes (%) (Auto) 17 12-44 % Monocytes (%) (Auto) 6 0-12 % Eosinophils (%) (Auto) 2 0-10 % Basophils (%) (Auto) 0 0-10 % Neutrophils # (Auto) 6.7 1.8-7.8 10^3/uL Lymphocytes # (Auto) 1.5 1.0-4.0 10^3/uL Monocytes # (Auto) 0.5 0.0-1.0 10^3/uL Eosinophils # (Auto) 0.2 0.0-0.3 10^3/uL Basophils # (Auto) 0.0 0.0-0.1 10^3/uL Immature Granulocyte # (Auto) 0.0 0.0-0.1 10^3/uL Prothrombin Time 13.2 12.2-14.7 SEC INR Comment 1.0 0.8-1.4 Activated Partial Thromboplast Time 27 24-35 SEC Sodium Level 136 135-145 MMOL/L Potassium Level 4.0 3.6-5.0 MMOL/L Chloride Level 102 98-107 MMOL/L Carbon Dioxide Level 24 21-32 MMOL/L Anion Gap 10 5-14 MMOL/L Blood Urea Nitrogen 11 7-18 MG/DL Creatinine 0.77 0.60-1.30 MG/DL Estimat Glomerular Filtration Rate > 60 BUN/Creatinine Ratio 14 Glucose Level 112 H 70-105 MG/DL Calcium Level 8.6 8.5-10.1 MG/DL Corrected Calcium 9.2 8.5-10.1 MG/DL Total Bilirubin 0.4 0.1-1.0 MG/DL Aspartate Amino Transf (AST/SGOT) 14 5-34 U/L Alanine Aminotransferase (ALT/SGPT) 17 0-55 U/L Alkaline Phosphatase 84 40-136 U/L Total Protein 8.0 6.4-8.2 GM/DL Albumin 3.3 3.2-4.5 GM/DL My Orders Orders - MIGEL WEAVER Cbc With Automated Diff (03/11/21 10:06) Comprehensive Metabolic Panel (03/11/21 10:06) Ct Maxillofacial W (03/11/21 10:06) Blood Culture (03/11/21 10:06) Sputum Culture (03/11/21 10:06) Urinalysis (03/11/21 10:06) Urine Culture (03/11/21 10:06) Protime With Inr (03/11/21 10:06) Partial Thromboplastin Time (03/11/21 10:06) Chest 1 View, Ap/Pa Only (03/11/21 10:06) Ed Iv/Invasive Line Start (03/11/21 10:06) Ed Iv/Invasive Line Start (03/11/21 10:06) Ekg Tracing (03/11/21 10:06) Vital Signs Adult Sepsis Patie Q15M (03/11/21 10:06) O2 (03/11/21 10:06) Remove Rings In Anticipation O (03/11/21 10:06) Lactic Acid Analyzer (03/11/21 10:06) Lactated Ringers (Lr 1000 Ml Iv Solution (03/11/21 10:15) Lactated Ringers (Lr 1000 Ml Iv Solution (03/11/21 10:15) Fentanyl Inj (Sublimaze Injection) (03/11/21 10:30) Cefepime Injection (Maxipime Injection) (03/11/21 10:30) Vancomycin Injection (Vancomycin Injecti (03/11/21 10:18) Iohexol Injection (Omnipaque 350 Mg/Ml 1 (03/11/21 11:00) Received Contrast (Hold Metformin- Contr (03/11/21 11:00) Ns (Ivpb) (Sodium Chloride 0.9% Ivpb Bag (03/11/21 11:00) Hydromorphone Injection (Dilaudid Inject (03/11/21 11:30) Hydromorphone Injection (Dilaudid Inject (03/11/21 11:39) Medications Given in ED Current Medications Medications Dose Ordered Sig/Minh Route Start Time Stop Time Status Last Admin Dose Admin Cefepime HCl 1000 mg/Sterile Water 10 ml @ 200 mls/hr ONCE ONCE IV 03/11/21 10:30 03/11/21 10:32 DC 03/11/21 11:18 200 MLS/HR Fentanyl Citrate 100 mcg ONCE ONCE IVP 03/11/21 10:30 03/11/21 10:31 DC 03/11/21 10:38 100 MCG Hydromorphone HCl 2 mg STK-MED ONCE .ROUTE 03/11/21 11:39 03/11/21 11:47 DC 03/11/21 11:49 0.5 MG Lactated Ringer's 1,000 ml @ 0 mls/hr Q0M ONCE IV 03/11/21 10:15 03/11/21 10:16 DC 03/11/21 10:39 1,000 MLS/HR Lactated Ringer's 1,000 ml @ 0 mls/hr Q0M ONCE IV 03/11/21 10:15 03/11/21 10:16 DC 03/11/21 11:20 1,000 MLS/HR Vancomycin HCl 2000 mg/Sodium Chloride 500 ml @ 260 mls/hr 1018 ONCE IV 03/11/21 10:18 03/11/21 12:13 DC 03/11/21 11:38 260 MLS/HR Vital Signs/I&O 03/11/21 03/11/21 09:48 09:50 Temp 36.9 Pulse 144 Resp 20 B/P (MAP) 194/95 (128) Pulse Ox 95 95 O2 Delivery Nasal Cannula O2 Flow Rate 3.00 Capillary Refill : Progress Note #1: Time: 10:23 Progress Note Suspect parotiditis versus other, sialadenitis, etc. Because of her tachycardia will initiate a septic work-up. Cefepime and vancomycin. Her previous blood cultures from the were both negative. Patient was recently hospitalized and discharged 5 days ago for acute on chronic respiratory failure and UTI sepsis. Progress Note #2: Time: 13:03 Progress Note We do not have ENT available at this time so we are looking to transfer her for inpatient care, IV antibiotics and ENT consultation. ECG Initial ECG Impression Date: Mar 11, 2021 Initial ECG Impression Time: 10:02 Initial ECG Rate: 117 Initial ECG Rhythm: S.Tach Initial ECG Intervals: Normal Initial ECG Impression: Normal Comment Sinus tachycardia without clinically relevant ST elevation or depression. Diagnostic Imaging Diagonstic Imaging: CT Plain Films/CT/US/NM/MRI: facial bones Comments NAME: CHELSEA GUTIERREZ [employer] REC#: [id number] PT STATUS: REG ER : 1965 PHYSICIAN: MIGEL WEAVER MD ADMIT DATE: 03/11/21/ER Draft Date of Exam:03/11/21 CT MAXILLOFACIAL W PROCEDURE: CT maxillofacial with contrast. TECHNIQUE: After intravenous administration of contrast, axial images were obtained through the face and reformatted into coronal and sagittal planes. Auto Exposure Controls were utilized during the CT exam to meet ALARA standards for radiation dose reduction. INDICATION: Parotiditis There are no prior CT maxillofacial bones exams available for comparison. There is diffuse edema/inflammation of the soft tissues along the right side of the face. The right parotid gland also appears to be significantly enlarged. Most likely findings are secondary to an acute inflammatory/infectious process. There is no drainable abscess identified. There are a few prominent lymph nodes in this area however. No other acute abnormality of the facial bones is seen. There is no fracture or destructive lesion identified. The intracranial contents where visualized are unremarkable. The orbits are symmetrical and within normal limits. The sinuses are generally clear. IMPRESSION: 1. There is diffuse edema/inflammation of the soft tissues along the right side of face and there is generalized enlargement of the parotid gland. Most likely these findings are related to acute parotiditis. There is no drainable abscess visualized. An ENT consult would be recommended however. 2. There is no acute abnormality identified otherwise. Dictated on workstation # [id number] Dict: 03/11/21 1210 Trans: 03/11/21 1216 [facility] [id number] Interpreted by: MARISOL BRAN MD Electronically signed by: Reviewed: Reviewed by Me Diagonstic Imaging: Xray Plain Films/CT/US/NM/MRI: chest Comments NAME: CHELSEA GUTIERREZ [employer] REC#: [id number] PT STATUS: REG ER : 1965 PHYSICIAN: MIGEL WEAVER MD ADMIT DATE: 03/11/21/ER Draft Date of Exam:03/11/21 CHEST 1 VIEW, AP/PA ONLY INDICATION: Sepsis. EXAMINATION: Chest 03/11/2021. COMPARISON: 03/07/2021 FINDINGS: The heart is prominent and there is pulmonary vascular congestion with coarsened markings throughout both lungs likely due to edema. Infiltrate at the left base not excluded. There are no significant effusions. There is no pneumothorax. IMPRESSION: 1. Left base atelectasis versus infiltrate. 2. Pulmonary edema. Dictated on workstation # [id number] Dict: 03/11/21 1051 Trans: 03/11/21 1111 [id number] Interpreted by: TARA MOJICA MD Electronically signed by: Reviewed: Reviewed by Me Departure Impression Primary Impression: Acute suppurative parotitis Disposition: ADMITTED INPATIENT Condition: Stable Transfer Transfer Reason: Exceeds level of care (No ENT education coordinator) Transfer Progress Notes 1255: Jae returned Call and paged ENT, Dr Winter Valdez. 1300: Dr. Valdez agrees to accept the patient if we will send him to the ER. [place] [facility] [place] Method of Transfer: EMS ( ) Departure-Patient Inst. Referrals: [facility] [place] ([place]P) Primary Care Physician ANALI DUFF (Family) Primary Care Physician IVET VALDEZ MD Copy Copies To 1: IVET VALDEZ MD, TITUS J Mar 11, 2021 10:18
[2021-03-11 10:29] LABS: BILIRUBIN,URINE NEGATIVE (NEGATIVE); CLARITY,URINE CLOUDY; COLOR,URINE YELLOW; GLUCOSE, URINE (UA) NEGATIVE (NEGATIVE); KETONES,URINE NEGATIVE (NEGATIVE); LEUKOCYTE ESTERASE ,URINE TRACE (NEGATIVE); NITRITE,URINE NEGATIVE (NEGATIVE); PROTEIN,URINE TRACE (NEGATIVE)
[2021-03-11] MEDS ORDERED: CEFEPIME INJECTION 1,000 MG in WATER (STERILE) FOR INJECTION 10 ML IV ONE (10:30)
[2021-03-11] MEDS ORDERED: fentaNYL INJ 100 MCG/2 ML AMP IVP ONE (10:30)
[2021-03-11 10:37] LABS: RBC,URINE RARE /HPF
[2021-03-11 10:38] LABS: BACTERIA,URINE FEW /HPF
[2021-03-11 10:51] LABS: BASOPHILS % (AUTO) 0 % (0-10); EOSINOPHILS # (AUTO) 0.2 10^3/uL (0.0-0.3); EOSINOPHILS % (AUTO) 2 % (0-10); HEMATOCRIT 35 % (35-52); HEMOGLOBIN 10.5 g/dL (11.5-16.0); LYMPHOCYTES # (AUTO) 1.5 10^3/uL (1.0-4.0); LYMPHOCYTES % (AUTO) 17 % (12-44); MEAN CORPUSCULAR HEMOGLOBIN 30 pg (25-34); MEAN CORPUSCULAR HGB CONC 30 g/dL (32-36); MEAN CORPUSCULAR VOLUME 99 fL (80-99); MEAN PLATELET VOLUME 9.5 fL (9.0-12.2); MONOCYTES # (AUTO) 0.5 10^3/uL (0.0-1.0); MONOCYTES % (AUTO) 6 % (0-12); NEUTROPHILS # (AUTO) 6.7 10^3/uL (1.8-7.8); NEUTROPHILS % (AUTO) 75 % (42-75); PLATELET COUNT 254 10^3/uL (130-400)
[2021-03-11] MEDS ORDERED: NS 100 ML (IVPB) BAG IV ONE (11:00)
[2021-03-11] MEDS ORDERED: IOHEXOL 350 MG/ML 100 ML (OMNIPAQUE 350) VIAL IV ONE (11:00)
[2021-03-11] MEDS ORDERED: HOLD METFORMIN - RECEIVED CONTRAST 20 ML VIAL IV SCH (11:00)
[2021-03-11 11:03] LABS: ALBUMIN 3.3 GM/DL (3.2-4.5); CHLORIDE 102 MMOL/L (98-107); SODIUM 136 MMOL/L (135-145)
[2021-03-11 11:04] LABS: CALCIUM 8.6 MG/DL (8.5-10.1)
[2021-03-11 11:05] LABS: GLUCOSE 112 MG/DL (70-105); PROTHROMBIN TIME PATIENT 13.2 SEC (12.2-14.7)
[2021-03-11 11:07] LABS: CARBON DIOXIDE 24 MMOL/L (21-32)
[2021-03-11 11:08] LABS: BILIRUBIN,TOTAL 0.4 MG/DL (0.1-1.0)
[2021-03-11 11:09] LABS: ALKALINE PHOSPHATASE 84 U/L (40-136); CREATININE SERUM 0.77 MG/DL (0.60-1.30); GFR ESTIMATED > 60
[2021-03-11 11:10] LABS: BUN/CREATININE RATIO 14
--- NOTE | 2021-03-11 11:11 | Diagnostic Imaging Report ---
INDICATION: Sepsis. EXAMINATION: Chest 03/11/2021. COMPARISON: 03/07/2021 FINDINGS: The heart is prominent and there is pulmonary vascular congestion with coarsened markings throughout both lungs likely due to edema. Infiltrate at the left base not excluded. There are no significant effusions. There is no pneumothorax. IMPRESSION: 1. Left base atelectasis versus infiltrate. 2. Pulmonary edema. Dictated by: Dictated on workstation # [id number]
[2021-03-11 11:12] LABS: ALANINE AMINOTRANSFERASE 17 U/L (0-55)
[2021-03-11] MEDS ORDERED: HYDROmorphone 2 MG/ML VIAL (DILAUDID) IV ONE (11:30)
[2021-03-11] MEDS ORDERED: HYDROmorphone 2 MG/ML VIAL (DILAUDID) ONE (11:39)
--- NOTE | 2021-03-11 12:16 | Diagnostic Imaging Report ---
PROCEDURE: CT maxillofacial with contrast. TECHNIQUE: After intravenous administration of contrast, axial images were obtained through the face and reformatted into coronal and sagittal planes. Auto Exposure Controls were utilized during the CT exam to meet ALARA standards for radiation dose reduction. INDICATION: Parotiditis There are no prior CT maxillofacial bones exams available for comparison. There is diffuse edema/inflammation of the soft tissues along the right side of the face. The right parotid gland also appears to be significantly enlarged. Most likely findings are secondary to an acute inflammatory/infectious process. There is no drainable abscess identified. There are a few prominent lymph nodes in this area however. No other acute abnormality of the facial bones is seen. There is no fracture or destructive lesion identified. The intracranial contents where visualized are unremarkable. The orbits are symmetrical and within normal limits. The sinuses are generally clear. IMPRESSION: 1. There is diffuse edema/inflammation of the soft tissues along the right side of face and there is generalized enlargement of the parotid gland. Most likely these findings are related to acute parotiditis. There is no drainable abscess visualized. An ENT consult would be recommended however. 2. There is no acute abnormality identified otherwise. Dictated by: Dictated on workstation # [id number]
[2021-03-11] MEDS ORDERED: oxyCODONE/APAP 10/325MG (PERCOCET 10) TABLET PO ONE (14:15)
[2021-03-11 15:15] VITALS: BP 175/92
== END 2021-03-11 15:15 | disposition other institution (70) ==
LOC: EDUNIT# 09:48 → ER 09:49
DX: K11.21 Acute sialoadenitis (principal); E66.9 Obesity, unspecified; I10 Essential (primary) hypertension; J45.909 Unspecified asthma, uncomplicated; F41.9 Anxiety disorder, unspecified; Z68.43 Body mass index [BMI] 50.0-59.9, adult; Z88.0 Allergy status to penicillin; Z88.8 Allergy status to other drugs, medicaments and biological substances
CPT/HCPCS: 36415; 70487; 71045; 80053; 81000; 83605; 85025; 85610; 85730; 87040; 87077; 87088; 93005

== ENCOUNTER 2021-12-13 09:38 | Emergency (ER) | payer MEDICARE, MEDICAID ==
[~2021-12-13] VITALS: Ht 162 cm; Wt 149.0 kg
[2021-12-13] MEDS ORDERED: morphine INJ 4 MG/ML 1 ML (VIAL/SYRINGE) IVP ONE (10:00)
[2021-12-13] MEDS ORDERED: LACTATED RINGERS 1,000 ML IV SCH (10:00)
[2021-12-13] MEDS ORDERED: ONDANSETRON 4 MG/2 ML (SDV) Z0FRAN IVP ONE (10:00)
[2021-12-13 10:06] LABS: BASOPHILS % (AUTO) 0 % (0-10); EOSINOPHILS # (AUTO) 0.1 10^3/uL (0.0-0.3); EOSINOPHILS % (AUTO) 1 % (0-10); HEMATOCRIT 38 % (35-52); HEMOGLOBIN 11.6 g/dL (11.5-16.0); LYMPHOCYTES # (AUTO) 2.1 10^3/uL (1.0-4.0); LYMPHOCYTES % (AUTO) 18 % (12-44); MEAN CORPUSCULAR HEMOGLOBIN 29 pg (25-34); MEAN CORPUSCULAR HGB CONC 30 g/dL (32-36); MEAN CORPUSCULAR VOLUME 97 fL (80-99); MEAN PLATELET VOLUME 9.5 fL (9.0-12.2); MONOCYTES # (AUTO) 0.6 10^3/uL (0.0-1.0); MONOCYTES % (AUTO) 5 % (0-12); NEUTROPHILS # (AUTO) 8.5 10^3/uL (1.8-7.8); NEUTROPHILS % (AUTO) 75 % (42-75); PLATELET COUNT 314 10^3/uL (130-400); WHITE BLOOD COUNT 11.3 10^3/uL (4.3-11.0)
[2021-12-13] MEDS ORDERED: morphine INJ 10 MG/ML 1ML (SYR OR VIAL) IVP STA (10:12)
--- NOTE | 2021-12-13 10:12 | ED Abdominal Pain ---
General Chief Complaint: Abdominal/GI Problems Stated Complaint: N/V, COLOSTMY CLOGGED Nursing Triage Note: ARRIVED VIA AMB WITH WC WITH COMPLAINTS OF A BLOCKED COLOSTOMY SHE THINKS. STATES SHE STARTED HAVING ABD PAIN YESTERDAY AND VOMITING THIS AM. Source of Information: Patient Exam Limitations: No Limitations History of Present Illness Date Seen by Provider: Dec 13, 2021 Time Seen by Provider: 09:41 Initial Comments 56-year-old female with past medical history of prior cervical cancer status post radiation now needing colostomy and urostomy coming in due to no colostomy output for 2 days. She says she changed the bag 2 days ago and has only had a couple hard "flores" come through. Began having severe abdominal pain that was sharp, generalized, and nothing seems to make it better or worse. Does take her as needed hydrocodone at home which did not seem to help. Had associated nonbloody nonbilious vomiting that started this morning. She says this feels similar to previous bowel obstructions. Otherwise denying any new fever, increase in her baseline shortness of breath, chest pain, new weakness, numbness, rash, or any other concerns Allergies and Home Medications Allergies Coded Allergies: Penicillins (Verified Allergy, Unknown, 03/04/17) gabapentin (Verified Allergy, Unknown, 03/11/21) Patient Home Medication List Home Medication List Reviewed: Yes Cefdinir (Cefdinir) 300 Mg Capsule, 300 MG PO BID Prescribed by: TYLER DANIELSON on 03/08/21 1001 Duloxetine HCl (Duloxetine HCl) 60 Mg Capsule.dr, 60 MG PO DAILY, (Reported) Entered as Reported by: MARYBEL COHEN on 03/07/21 0912 Fluticasone/Umeclidin/Vilanter (Trelegy Ellipta 100-62.5-25) 1 Each Blst.w.dev, 1 PUFF INH DAILY, (Reported) Entered as Reported by: MARYBEL COHEN on 03/07/21 0901 Folic Acid (Folic Acid) 1 Mg Tablet, 1 MG PO DAILY Prescribed by: TYLER DANIELSON on 03/08/21 1001 Hydrocodone/Acetaminophen (Hydrocodone-Acetamin 7.5-325) 1 Each Tablet, 1 EA PO Q6H PRN for PAIN-MODERATE (5-7), (Reported) Entered as Reported by: MARYBEL COHEN on 03/07/21 0901 Review of Systems Review of Systems Constitutional: No chills, No fever EENTM: No Blurred Vision Respiratory: Denies Cough Cardiovascular: Denies Chest Pain Gastrointestinal: Abdominal Pain, Nausea, Vomiting Genitourinary: Denies Burning Musculoskeletal: no symptoms reported Skin: no symptoms reported Psychiatric/Neurological: No Symptoms Reported Endocrine: No Symptoms Reported Hematologic/Lymphatic: No Symptoms Reported All Other Systems Reviewed Negative Unless Noted: Yes Past Kkfprft-Ikcxgg-Tsdmmb Hx Patient Social History Tobacco Use?: No Substance use?: No Alcohol Use?: No Immunizations Up To Date Tetanus Booster (TDap): Unknown COVID19 Vaccine Manager Reliability: MODERNA Seasonal Allergies Seasonal Allergies: No Past Medical History Surgeries: Yes (HERNIA, FOOT) Abdominal, Gallbladder, Hysterectomy, Orthopedic Respiratory: Yes (pulmonary hypertension) Asthma Currently Using CPAP: No Currently Using BIPAP: No Cardiac: Yes (pulmonary hypertension, tachycardia) High Cholesterol, Hypertension Neurological: Yes Neuropathy Reproductive Disorders: No [employer] History: Hysterectomy Gastrointestinal: Yes Gastroesophageal Reflux Musculoskeletal: Yes Arthritis, Fibromyalgia Endocrine: Yes Hypothyroidsim Cancer: No Psychosocial: Yes Anxiety Integumentary: No Blood Disorders: No Family Medical History No Pertinent Family Hx Non-contributory Physical Exam Vital Signs Vital Signs - First Documented 12/13/21 09:40 Temp 35.6 Pulse 137 Resp 16 B/P (MAP) 161/80 (107) Pulse Ox 99 O2 Delivery Room Air Capillary Refill : Less Than 3 Seconds Height/Weight/BMI Height: 5'4.00" Weight: 307lbs. 9.6oz. 139.609377oa; 125.00 BMI Method:Stated General Appearance: WD/WN, no apparent distress HEENT: PERRL/EOMI, normal ENT inspection, pharynx normal Neck: non-tender, full range of motion, supple, normal inspection Respiratory: chest non-tender, lungs clear, normal breath sounds, no respiratory distress, no accessory muscle use Cardiovascular: no edema, no murmur, tachycardia Gastrointestinal: No distended, No guarding, No rebound; tenderness, other (Decreased bowel sounds, no output noted in the colostomy bag) Extremities: normal range of motion, non-tender, normal inspection, no pedal edema, no calf tenderness Back: normal inspection Neurologic/Psychiatric: no motor/sensory deficits, alert, normal mood/affect Skin: normal color, warm/dry Lymphatic: no adenopathy Progress/Results/Core Measures Results/Orders Lab Results Laboratory Tests Test 12/13/21 10:00 12/13/21 10:16 Range/Units White Blood Count 11.3 H 4.3-11.0 10^3/uL Red Blood Count 3.96 3.80-5.11 10^6/uL Hemoglobin 11.6 11.5-16.0 g/dL Hematocrit 38 35-52 % Mean Corpuscular Volume 97 80-99 fL Mean Corpuscular Hemoglobin 29 25-34 pg Mean Corpuscular Hemoglobin Concent 30 L 32-36 g/dL Red Cell Distribution Width 13.8 10.0-14.5 % Platelet Count 314 130-400 10^3/uL Mean Platelet Volume 9.5 9.0-12.2 fL Immature Granulocyte % (Auto) 1 % Neutrophils (%) (Auto) 75 42-75 % Lymphocytes (%) (Auto) 18 12-44 % Monocytes (%) (Auto) 5 0-12 % Eosinophils (%) (Auto) 1 0-10 % Basophils (%) (Auto) 0 0-10 % Neutrophils # (Auto) 8.5 H 1.8-7.8 10^3/uL Lymphocytes # (Auto) 2.1 1.0-4.0 10^3/uL Monocytes # (Auto) 0.6 0.0-1.0 10^3/uL Eosinophils # (Auto) 0.1 0.0-0.3 10^3/uL Basophils # (Auto) 0.0 0.0-0.1 10^3/uL Immature Granulocyte # (Auto) 0.1 0.0-0.1 10^3/uL Sodium Level 137 135-145 MMOL/L Potassium Level 4.0 3.6-5.0 MMOL/L Chloride Level 102 98-107 MMOL/L Carbon Dioxide Level 26 21-32 MMOL/L Anion Gap 9 5-14 MMOL/L Blood Urea Nitrogen 11 7-18 MG/DL Creatinine 0.85 0.60-1.30 MG/DL Estimat Glomerular Filtration Rate 79 BUN/Creatinine Ratio 13 Glucose Level 139 H 70-105 MG/DL Calcium Level 9.1 8.5-10.1 MG/DL Corrected Calcium 9.4 8.5-10.1 MG/DL Total Bilirubin 0.3 0.1-1.0 MG/DL Aspartate Amino Transf (AST/SGOT) 14 5-34 U/L Alanine Aminotransferase (ALT/SGPT) 19 0-55 U/L Alkaline Phosphatase 88 40-136 U/L Total Protein 8.6 H 6.4-8.2 GM/DL Albumin 3.6 3.2-4.5 GM/DL Lipase 10 8-78 U/L Urine Color YELLOW Urine Clarity CLOUDY Urine pH 7.5 5-9 Urine Specific [place] 1.020 1.016-1.022 Urine Protein 2+ H NEGATIVE Urine Glucose (UA) NEGATIVE NEGATIVE Urine Ketones NEGATIVE NEGATIVE Urine Nitrite POSITIVE H NEGATIVE Urine Bilirubin NEGATIVE NEGATIVE Urine Urobilinogen 0.2 < = 1.0 MG/DL Urine Leukocyte Esterase 2+ H NEGATIVE Urine RBC (Auto) 2+ H NEGATIVE Urine RBC 25-50 H /HPF Urine WBC TNTC H /HPF Urine Squamous Epithelial Cells NONE /HPF Urine Crystals NONE /LPF Urine Bacteria MODERATE H /HPF Urine Casts NONE /LPF Urine Mucus NEGATIVE /LPF Urine Culture Indicated YES My Orders Orders - BASILIA EISENBERG MD Comprehensive Metabolic Panel (12/13/21 09:53) Lipase (12/13/21 09:53) Ua Culture If Indicated (12/13/21 09:53) Ed Iv/Invasive Line Start (12/13/21 09:53) Cbc With Automated Diff (12/13/21 09:53) Ct Abdomen/Pelvis W (12/13/21 09:53) Ondansetron Injection (Zofran Injectio (12/13/21 10:00) Lactated Ringers (Lr 1000 Ml Iv Solution (12/13/21 10:00) Iohexol Injection (Omnipaque 350 Mg/Ml 1 (12/13/21 10:15) Received Contrast (Hold Metformin- Contr (12/13/21 10:15) Sodium Chloride Flush (Catheter Flush Sy (12/13/21 10:15) Ns (Ivpb) (Sodium Chloride 0.9% Ivpb Bag (12/13/21 10:15) Morphine Injection (Morphine Injection (12/13/21 10:12) Urine Culture (12/13/21 10:16) Medications Given in ED Current Medications Medications Dose Ordered Sig/Minh Route Start Time Stop Time Status Last Admin Dose Admin Iohexol 100 ml ONCE ONCE IV 1/19/22 10:15 12/13/21 10:16 DC 12/13/21 10:54 100 ML Ondansetron HCl 4 mg ONCE ONCE IVP 12/13/21 10:00 12/13/21 10:01 DC 12/13/21 10:06 4 MG Sodium Chloride 100 ml ONCE ONCE IV 12/13/21 10:15 12/13/21 10:16 DC 12/13/21 10:54 80 ML Vital Signs/I&O 12/13/21 09:40 Temp 35.6 Pulse 137 Resp 16 B/P (MAP) 161/80 (107) Pulse Ox 99 O2 Delivery Room Air Blood Pressure Mean: 107 Progress Progress Note : Progress Note 56-year-old female with above history coming in due to abdominal pain and vomiting. ABCs were intact and vitals were stable on presentation. Physical exam with some abdominal tenderness but no signs of peritonitis. Labs significant for urinary tract infection. CT abdomen pelvis ordered to assess for small bowel obstruction versus some other etiology. She does have obstructing ureterolithiasis on the right with some hydronephrosis. This would explain her vomiting and pain. She was given IV morphine and IV Zofran with a liter of IV fluids with significant improvement in symptoms. Vitals are stable, and she has nontoxic-appearing. Give her a dose of ceftriaxone here and will send her home with cefdinir. On review of the chart she has tolerated cepha losporins in the past here despite having a penicillin allergy. I recommended she follow-up with the urologist as soon as possible. I believe she is stable for discharge. She was sent home with strict return precautions Diagnostic Imaging Diagonstic Imaging: CT Plain Films/CT/US/NM/MRI: abdomen, pelvis Comments [facility]. [place], [place] NAME: CHELSEA GUTIERREZ [facility] REC#: [id number] PT STATUS: REG ER : 1965 PHYSICIAN: BASILIA EISENBERG MD ADMIT DATE: 12/13/21/ER Draft Date of Exam:12/13/21 CT ABDOMEN/PELVIS W EXAMINATION: CT abdomen and pelvis with intravenous contrast. TECHNIQUE: Multiple contiguous axial images were obtained through the abdomen and pelvis after the uneventful administration of intravenous contrast. All CT scans use one or more of the following dose optimizing techniques: automated exposure control, MA and/or KvP adjustment based on patient size and exam type or iterative reconstruction. HISTORY: Abdominal pain. Concern for small bowel obstruction. COMPARISON: 05/01/2021. FINDINGS: The heart is unremarkable. The included lung bases are clear. Cysts are again noted in the liver, the largest measuring 3.4 x 2.8 cm. No enhancing hepatic lesions. The gallbladder is surgically absent. The portal vein is patent. Calculus is seen in the distal right ureter measuring 0.3 cm. There is mild right-sided hydroureteronephrosis. There is wall thickening involving the proximal portion of the right ureter. Bilateral nonobstructing calculi are seen in the kidneys. No solid renal mass. Postsurgical changes of cystectomy with diverting ileostomy are again seen. Postsurgical changes of left hemicolectomy changes and left hemiabdomen ileostomy are again seen. Parastomal hernia is present containing a loop of small bowel. Nondilated fluid-filled loops of small bowel are seen in the abdomen and pelvis without evidence of obstruction. No free fluid or free air in the abdomen and pelvis. The spleen, pancreas, and adrenal glands have a normal appearance. There is no pathologically enlarged mesenteric or retroperitoneal adenopathy. No acute osseous abnormalities. There is calcified aortic and iliac atherosclerotic plaque without aneurysm. Prominent inguinal lymph nodes are noted bilaterally, similar to the prior exam. IMPRESSION: 1. Calculus in the distal right ureter measuring 0.3 cm with mild right-sided hydroureteronephrosis. Additional wall thickening in the proximal portion of the right ureter is seen which may suggest additional urinary tract infection. 2. Bilateral nonobstructing renal calculi, similar to the prior exam. 3. No evidence of small bowel obstruction. No free fluid or free air. Dictated on workstation # [id number] Dict: 12/13/21 1120 Trans: 12/13/21 1134 [id number] Interpreted by: ANDRES CORDOBA DO Electronically signed by: Paul Impression Primary Impression: Ureterolithiasis Additional Impression: UTI (urinary tract infection) Qualified Codes: N39.0 - Urinary tract infection, site not specified Disposition: HOME, SELF-CARE Condition: Stable Departure-Patient Inst. Decision time for Depature: 12:05 Referrals: [facility] (PCP) Primary Care Physician ANALI DUFF (Family) Primary Care Physician Patient Instructions: Kidney Stones (DC), Kidney Infection (DC) Add. Discharge Instructions: You were seen in the emergency department for abdominal pain with vomiting. You do have a kidney stone on the right that is blocking the urine coming out of your kidney which is what causes the pain and vomiting. Take your hydrocodone at home as needed. I sent a prescription for nausea medicine to your pharmacy. If you develop fever in the next 24 hours, becomes confused, or things are worsening and you are concerned then please come back to the ER before that. Otherwise, call the urologist in [place] that you were talking about to schedule an appointment as soon as possible. Scripts Cefdinir (Cefdinir) 300 Mg Capsule 300 MG PO BID for 10 Days, #20 CAP 0 Refills Prov: BASILIA EISENBERG MD 12/13/21 Ondansetron (Ondansetron Odt) 4 Mg Tab.rapdis 4 MG PO Q6H PRN for NAUSEA/VOMITING-1ST LINE for 5 Days, #20 TAB Prov: BASILIA EISENBERG MD 12/13/21 Work/School Note: Work Release Form Date Seen in the Emergency Department: Dec 13, 2021 Return to Work: Dec 15, 2021 Restrictions: Return-No Fever (24hrs) BASILIA EISENBERG MD Dec 13, 2021 10:12
[2021-12-13 10:15] LABS: ALBUMIN 3.6 GM/DL (3.2-4.5)
[2021-12-13] MEDS ORDERED: NS 100 ML (IVPB) BAG IV ONE (10:15)
[2021-12-13] MEDS ORDERED: HOLD METFORMIN - RECEIVED CONTRAST 20 ML VIAL IV SCH (10:15)
[2021-12-13] MEDS ORDERED: IOHEXOL 350 MG/ML 100 ML (OMNIPAQUE 350) VIAL IV ONE (10:15)
[2021-12-13] MEDS ORDERED: CATHETER FLUSH 10 ML SYR IV PRN (10:15)
[2021-12-13 10:16] LABS: CALCIUM 9.1 MG/DL (8.5-10.1)
[2021-12-13 10:18] LABS: TOTAL PROTEIN 8.6 GM/DL (6.4-8.2)
[2021-12-13 10:20] LABS: BILIRUBIN,TOTAL 0.3 MG/DL (0.1-1.0)
[2021-12-13 10:21] LABS: CREATININE SERUM 0.85 MG/DL (0.60-1.30)
[2021-12-13 10:23] LABS: BILIRUBIN,URINE NEGATIVE (NEGATIVE); CLARITY,URINE CLOUDY; COLOR,URINE YELLOW; GLUCOSE, URINE (UA) NEGATIVE (NEGATIVE); KETONES,URINE NEGATIVE (NEGATIVE); LEUKOCYTE ESTERASE ,URINE 2+ (NEGATIVE); NITRITE,URINE POSITIVE (NEGATIVE); PH,URINE 7.5 (5-9); PROTEIN,URINE 2+ (NEGATIVE)
[2021-12-13 10:30] LABS: BACTERIA,URINE MODERATE /HPF; RBC,URINE 25-50 /HPF; WBC,URINE TNTC /HPF
--- NOTE | 2021-12-13 11:34 | Diagnostic Imaging Report ---
EXAMINATION: CT abdomen and pelvis with intravenous contrast. TECHNIQUE: Multiple contiguous axial images were obtained through the abdomen and pelvis after the uneventful administration of intravenous contrast. All CT scans use one or more of the following dose optimizing techniques: automated exposure control, MA and/or KvP adjustment based on patient size and exam type or iterative reconstruction. HISTORY: Abdominal pain. Concern for small bowel obstruction. COMPARISON: 05/01/2021. FINDINGS: The heart is unremarkable. The included lung bases are clear. Cysts are again noted in the liver, the largest measuring 3.4 x 2.8 cm. No enhancing hepatic lesions. The gallbladder is surgically absent. The portal vein is patent. Calculus is seen in the distal right ureter measuring 0.3 cm. There is mild right-sided hydroureteronephrosis. There is wall thickening involving the proximal portion of the right ureter. Bilateral nonobstructing calculi are seen in the kidneys. No solid renal mass. Postsurgical changes of cystectomy with diverting ileostomy are again seen. Postsurgical changes of left hemicolectomy changes and left hemiabdomen ileostomy are again seen. Parastomal hernia is present containing a loop of small bowel. Nondilated fluid-filled loops of small bowel are seen in the abdomen and pelvis without evidence of obstruction. No free fluid or free air in the abdomen and pelvis. The spleen, pancreas, and adrenal glands have a normal appearance. There is no pathologically enlarged mesenteric or retroperitoneal adenopathy. No acute osseous abnormalities. There is calcified aortic and iliac atherosclerotic plaque without aneurysm. Prominent inguinal lymph nodes are noted bilaterally, similar to the prior exam. IMPRESSION: 1. Calculus in the distal right ureter measuring 0.3 cm with mild right-sided hydroureteronephrosis. Additional wall thickening in the proximal portion of the right ureter is seen which may suggest additional urinary tract infection. 2. Bilateral nonobstructing renal calculi, similar to the prior exam. 3. No evidence of small bowel obstruction. No free fluid or free air. Dictated by: Dictated on workstation # [id number]
[2021-12-13] MEDS ORDERED: CEFD300C3 PO (11:52)
[2021-12-13] MEDS ORDERED: ONDA4TAB11 PO (11:52)
[2021-12-13] MEDS ORDERED: cefTRIAXone 1 GM PRE-MIX 50 ML IV ONE (12:00)
[2021-12-13 12:35] VITALS: BP 146/96
== END 2021-12-13 12:35 | disposition home or self-care (01) ==
LOC: EDUNIT# 09:38 → ER 09:40
DX: N13.2 Hydronephrosis with renal and ureteral calculous obstruction (principal); N39.0 Urinary tract infection, site not specified; J45.909 Unspecified asthma, uncomplicated; I10 Essential (primary) hypertension; F41.9 Anxiety disorder, unspecified; Z79.899 Other long term (current) drug therapy
CPT/HCPCS: 36415; 74177; 80053; 81000; 83690; 85025; 87077; 87088; 87186

== ENCOUNTER 2022-06-07 15:00 | Emergency (ER) | payer MEDICARE, MEDICAID ==
[~2022-06-07] VITALS: Ht 162.5 cm; Wt 154.2 kg
[~2022-06-07 15:00] MED LIST changes: +ACET-2267 PO; +MTP25TSR PO; +NITR-65 PO; +ONDA4TAB11 PO; +VERA360C2 PO
[2022-06-07 15:29] LABS: ABG BASE EXCESS 4.8 MMOL/L (-2.5-2.5); ABG OXYGEN SATURATION 98 % (94-100); ABG PCO2 57 MMHG (35-45); ABG PO2 100 MMHG (79-93); ABG TCO2 32.1 MMOL/L (21.0-31.0)
[2022-06-07 15:30] LABS: BASOPHILS % (AUTO) 0 % (0-10); EOSINOPHILS # (AUTO) 0.1 10^3/uL (0.0-0.3); EOSINOPHILS % (AUTO) 1 % (0-10); HEMATOCRIT 36 % (35-52); HEMOGLOBIN 10.3 g/dL (11.5-16.0); LYMPHOCYTES # (AUTO) 1.2 10^3/uL (1.0-4.0); LYMPHOCYTES % (AUTO) 12 % (12-44); MEAN CORPUSCULAR HEMOGLOBIN 28 pg (25-34); MEAN CORPUSCULAR HGB CONC 29 g/dL (32-36); MEAN CORPUSCULAR VOLUME 98 fL (80-99); MONOCYTES # (AUTO) 0.7 10^3/uL (0.0-1.0); MONOCYTES % (AUTO) 7 % (0-12); NEUTROPHILS # (AUTO) 8.3 10^3/uL (1.8-7.8); NEUTROPHILS % (AUTO) 80 % (42-75); PLATELET COUNT 391 10^3/uL (130-400); WHITE BLOOD COUNT 10.4 10^3/uL (4.3-11.0)
[2022-06-07] MEDS ORDERED: cefTRIAXone 1 GM PRE-MIX 50 ML IV ONE (15:30)
[2022-06-07] MEDS ORDERED: NS IV 500 ML 500 ML IV ONE ×2 (15:30→16:30)
[2022-06-07 15:38] LABS: ABG PH 7.34 (7.37-7.43)
[2022-06-07 15:39] LABS: ALLENS TEST YES-POS; INSPIRED O2 3 L; PATIENT TEMP 98.1; VENTILATOR NO
--- NOTE | 2022-06-07 15:39 | ED General ---
General Chief Complaint: General Problems/Pain Stated Complaint: WEAKNESS Source of Information: Patient, Old Records Exam Limitations: No Limitations History of Present Illness Date Seen by Provider: Jun 07, 2022 Time Seen by Provider: 15:10 Initial Comments Patient to the ER by EMS from [facility] where her primary care provider was seeing her in follow-up from an admission for UTI sepsis. She was finishing up Macrobid. Her urine culture showed 3 or more isolates 10- 100,000 CFU's. She received a DuoNeb breathing treatment on route which did help with her wheezing. She has a history of COPD. She is on Ellipta. She denies a history of heart disease, atrial fibrillation or heart failure. She feels like she is had more edema in her legs lately since getting out of the hospital. Because of her weakness and heart rate being in the 140s her primary care provider wanted her to be seen in the ER first. On review of previous notes as well as with the patient it seems like she has tachycardia at times that is unexplained. She is not having fevers or chills, nausea or vomiting. She has a few more days left of Macrobid to go. She says she been worked up by her inspectors and regulatory officers, Dr. Villela as well as a inspectors and regulatory officers [place] and they cannot come up with a reason why she has the tachycardia. She is on metoprolol succinate 25 mg daily and has not been missing any doses. Allergies and Home Medications Allergies Coded Allergies: Penicillins (Verified Allergy, Unknown, 06/01/22) gabapentin (Verified Allergy, Unknown, 06/01/22) Patient Home Medication List Home Medication List Reviewed: Yes Acetaminophen (Tylenol Extra Strength) 500 Mg Tablet, 1,000 MG PO Q8H PRN for PAIN-MILD (1-4), (Reported) Entered as Reported by: MARYBEL COHEN on 06/01/22 1538 Atorvastatin Calcium (Atorvastatin Calcium) 40 Mg Tablet, 40 MG PO DAILY, (Reported) Entered as Reported by: MARYBEL COHEN on 06/01/22 1538 Hydrocodone/Acetaminophen (Hydrocodone-Acetamin 7.5-325) 7.5 Mg-325 Mg Tablet, 1-2 EA PO Q6H PRN for PAIN-MODERATE (5-7), (Reported) Entered as Reported by: MARYBEL COHEN on 03/07/21 0901 Levothyroxine Sodium (Levothyroxine Sodium) 175 Mcg Tablet, 175 MCG PO DAILY, (Reported) Entered as Reported by: MARYBEL COHEN on 06/01/22 1538 Metoprolol Succinate (Metoprolol Succinate) 25 Mg Tab.er.24h, 25 MG PO DAILY, (Reported) Entered as Reported by: MARYBEL COHEN on 06/01/22 1538 Nitrofurantoin Monohyd/M-Cryst (Macrobid 100 mg Capsule) 100 Mg Capsule, 1 TAB PO BID Prescribed by: TYLER DANIELSON on 06/03/22 1255 Verapamil HCl (Verapamil HCl) 360 Mg Cap24h.pel, 360 MG PO DAILY, (Reported) Entered as Reported by: MARYBEL COHEN on 06/01/22 1538 Discontinued Medications Cefdinir (Cefdinir) 300 Mg Capsule, 300 MG PO BID Discontinued Reason: No Longer Taking Prescribed by: TYLER DANIELSON on 03/08/21 1001 Cefdinir (Cefdinir) 300 Mg Capsule, 300 MG PO BID Discontinued Reason: No Longer Taking Prescribed by: BASILIA EISENBERG on 12/13/21 1152 Duloxetine HCl (Duloxetine HCl) 60 Mg Capsule.dr, 60 MG PO DAILY, (Reported) Discontinued Reason: No Longer Taking Entered as Reported by: MARYBEL COHEN on 03/07/21 0912 Fluticasone/Umeclidin/Vilanter (Trelegy Ellipta 100-62.5-25) 1 Each Blst.w.dev, 1 PUFF INH DAILY, (Reported) Discontinued Reason: No Longer Taking Entered as Reported by: MARYBEL COHEN on 03/07/21 09 Folic Acid (Folic Acid) 1 Mg Tablet, 1 MG PO DAILY Discontinued Reason: No Longer Taking Prescribed by: TYLER DANIELSON on 03/08/21 1001 Ondansetron (Ondansetron Odt) 4 Mg Tab.rapdis, 4 MG PO Q6H PRN for NAUSEA/VOMITING-1ST LINE Discontinued Reason: No Longer Taking Prescribed by: BASILIA EISENBERG on 12/13/21 1152 Review of Systems Review of Systems Constitutional: No chills, No diaphoresis, No fever; malaise, weakness EENTM: No ear discharge, No ear pain Respiratory: No cough, No short of breath; wheezing Cardiovascular: No chest pain, No palpitations Gastrointestinal: No abdominal pain, No diarrhea, No nausea, No vomiting Genitourinary: No discharge, No dysuria Musculoskeletal: No back pain, No joint pain All Other Systems Reviewed Negative Unless Noted: Yes Past Vdvnkgj-Diuijs-Bnukmv Hx Patient Social History Tobacco Use?: No Use of E-Cig and/or Vaping dev: No Substance use?: No Immunizations Up To Date Tetanus Booster (TDap): Unknown First/Initial COVID19 Vaccinat: 09/14 Second COVID19 Vaccination Eduardo: 09/14 Third COVID19 Vaccination Date: 09/14 Seasonal Allergies Seasonal Allergies: No Past Medical History Surgery/Hospitalization HX: colostomy, urostomy, cervical ca, kidney stones, bladder removed, rt foot, gallbladder, copd Surgeries: Yes (HERNIA, FOOT) Abdominal, Bladder Surgery, Gallbladder, Hysterectomy, Orthopedic Respiratory: Yes (pulmonary hypertension) Asthma, COPD Currently Using CPAP: No Currently Using BIPAP: No Cardiac: Yes (pulmonary hypertension, tachycardia) High Cholesterol, Hypertension Neurological: Yes Neuropathy Reproductive Disorders: No MASTER OF CEREMONIES History: Hysterectomy Genitourinary: Yes (Urostomy pouch) Kidney Infection, Kidney Stones Gastrointestinal: Yes Gastroesophageal Reflux Musculoskeletal: Yes Arthritis, Fibromyalgia Endocrine: Yes Hypothyroidsim Cancer: Yes Bladder, Cervical Psychosocial: Yes Anxiety Integumentary: No Blood Disorders: No Family Medical History No Pertinent Family Hx Non-contributory Physical Exam Vital Signs Vital Signs - First Documented 06/07/22 15:03 Temp 37.4 Pulse 144 Resp 16 B/P (MAP) 133/93 (106) Pulse Ox 95 O2 Delivery Nasal Cannula O2 Flow Rate 3.00 Capillary Refill : Height, Weight, BMI Height: 5'4.00" Weight: 307lbs. 9.6oz. [id number]; 58.47 BMI Method:Stated General Appearance: No Apparent Distress, Obese (Morbid obesity) Eyes: Bilateral Eye Normal Inspection, Bilateral Eye PERRL, Bilateral Eye EOMI HEENT: PERRL/EOMI, Pharynx Normal, Moist Mucous Membranes Neck: Full Range of Motion, Normal Inspection Respiratory: Lungs Clear, Normal Breath Sounds, No Accessory Muscle Use, No Respiratory Distress Cardiovascular: Regular Rate, Rhythm, No Edema, Normal Peripheral Pulses Extremity: Normal Capillary Refill, Normal Inspection, No Pedal Edema Neurologic/Psychiatric: Alert, Oriented x3 Focused Exam Lactate Level 06/07/22 15:19: Lactic Acid Level 1.88 Lactic Acid Level Laboratory Tests Test 06/07/22 15:19 Lactic Acid Level 1.88 MMOL/L (0.50-2.00) Progress/Results/Core Measures Suspected Sepsis SIRS Temperature: Pulse: Respiratory Rate: Laboratory Tests 06/07/22 15:19: White Blood Count 10.4 Blood Pressure / Mean: 06/07/22 15:19: Lactic Acid Level 1.88 Laboratory Tests 06/07/22 15:19: Creatinine 0.82, INR Comment 1.1, Platelet Count 391, Total Bilirubin 0.5 Results/Orders Lab Results Laboratory Tests Test 06/07/22 15:19 06/07/22 15:29 Range/Units White Blood Count 10.4 4.3-11.0 10^3/uL Red Blood Count 3.65 L 3.80-5.11 10^6/uL Hemoglobin 10.3 L 11.5-16.0 g/dL Hematocrit 36 35-52 % Mean Corpuscular Volume 98 80-99 fL Mean Corpuscular Hemoglobin 28 25-34 pg Mean Corpuscular Hemoglobin Concent 29 L 32-36 g/dL Red Cell Distribution Width 13.8 10.0-14.5 % Platelet Count 391 130-400 10^3/uL Mean Platelet Volume 10.0 9.0-12.2 fL Immature Granulocyte % (Auto) 1 % Neutrophils (%) (Auto) 80 H 42-75 % Lymphocytes (%) (Auto) 12 12-44 % Monocytes (%) (Auto) 7 0-12 % Eosinophils (%) (Auto) 1 0-10 % Basophils (%) (Auto) 0 0-10 % Neutrophils # (Auto) 8.3 H 1.8-7.8 10^3/uL Lymphocytes # (Auto) 1.2 1.0-4.0 10^3/uL Monocytes # (Auto) 0.7 0.0-1.0 10^3/uL Eosinophils # (Auto) 0.1 0.0-0.3 10^3/uL Basophils # (Auto) 0.0 0.0-0.1 10^3/uL Immature Granulocyte # (Auto) 0.1 0.0-0.1 10^3/uL Prothrombin Time 14.6 12.2-14.7 SEC INR Comment 1.1 0.8-1.4 Activated Partial Thromboplast Time 34 24-35 SEC Blood Gas Puncture Site R RAD Blood Gas Patient Temperature 98.1 Arterial Blood pH 7.34 *L 7.37-7.43 Arterial Blood Partial Pressure CO2 57 H 35-45 MMHG Arterial Blood Partial Pressure O2 100 H 79-93 MMHG Arterial Blood HCO3 30 H 23-27 MMOL/L Arterial Blood Total CO2 32.1 H 21.0-31.0 MMOL/L Arterial Blood Oxygen Saturation 98 94-100 % Arterial Blood Base Excess 4.8 H -2.5-2.5 MMOL/L David Test YES-POS Blood Gas Ventilator Setting NO Blood Gas Inspired Oxygen 3 L Sodium Level 136 135-145 MMOL/L Potassium Level 4.0 3.6-5.0 MMOL/L Chloride Level 97 L 98-107 MMOL/L Carbon Dioxide Level 27 21-32 MMOL/L Anion Gap 12 5-14 MMOL/L Blood Urea Nitrogen 12 7-18 MG/DL Creatinine 0.82 0.60-1.30 MG/DL Estimat Glomerular Filtration Rate 82 BUN/Creatinine Ratio 15 Glucose Level 134 H 70-105 MG/DL Lactic Acid Level 1.88 0.50-2.00 MMOL/L Calcium Level 8.8 8.5-10.1 MG/DL Corrected Calcium 9.7 8.5-10.1 MG/DL Total Bilirubin 0.5 0.1-1.0 MG/DL Aspartate Amino Transf (AST/SGOT) 98 H 5-34 U/L Alanine Aminotransferase (ALT/SGPT) 75 H 0-55 U/L Alkaline Phosphatase 169 H 40-136 U/L Troponin I < 0.028 <0.028 NG/ML B-Type Natriuretic Peptide < 10.0 <100.0 PG/ML Total Protein 7.6 6.4-8.2 GM/DL Albumin 2.9 L 3.2-4.5 GM/DL Urine Color YELLOW Urine Clarity TURBID Urine pH 6.0 5-9 Urine Specific [place] 1.020 1.016-1.022 Urine Protein 3+ H NEGATIVE Urine Glucose (UA) NEGATIVE NEGATIVE Urine Ketones NEGATIVE NEGATIVE Urine Nitrite NEGATIVE NEGATIVE Urine Bilirubin NEGATIVE NEGATIVE Urine Urobilinogen 0.2 < = 1.0 MG/DL Urine Leukocyte Esterase 1+ H NEGATIVE Urine RBC (Auto) 3+ H NEGATIVE Urine RBC NONE /HPF Urine WBC >100 H /HPF Urine Squamous Epithelial Cells 0-2 /HPF Urine Renal Epithelial Cells NONE /HPF Urine Crystals NONE /LPF Urine Bacteria MODERATE H /HPF Urine Casts NONE /LPF Urine Mucus NEGATIVE /LPF Urine Yeast MODERATE H /HPF Urine Culture Indicated CULTURE PENDING My Orders Orders - MIGEL WEAVER Ekg Tracing (06/07/22 15:12) Arterial Blood Gas (06/07/22 15:18) Ed Iv/Invasive Line Start (06/07/22 15:18) Ns Iv 500 Ml (Sodium Chloride 0.9%) (06/07/22 15:30) Ua Culture If Indicated (06/07/22 15:18) Ceftriaxone 1 Gm Pre-Mix (Rocephin 1 Gm (06/07/22 15:30) Cbc With Automated Diff (06/07/22 15:18) Comprehensive Metabolic Panel (06/07/22 15:18) Blood Culture (06/07/22 15:18) Sputum Culture (06/07/22 15:18) Urine Culture (06/07/22 15:18) Protime With Inr (06/07/22 15:18) Partial Thromboplastin Time (06/07/22 15:18) Chest 1 View, Ap/Pa Only (06/07/22 15:18) Ed Iv/Invasive Line Start (06/07/22 15:18) Ed Iv/Invasive Line Start (06/07/22 15:18) Vital Signs Adult Sepsis Patie Q15M (06/07/22 15:18) O2 (06/07/22 15:18) Remove Rings In Anticipation O (06/07/22 15:18) Lactic Acid Analyzer (06/07/22 15:18) Bnp [place] (06/07/22 15:18) Ekg Tracing (06/07/22 15:18) Continuous Ekg Monitoring (06/07/22 15:18) Troponin I [place] (06/07/22 15:18) Arterial Blood Gas (06/07/22 15:25) Ed Iv/Invasive Line Start (06/07/22 16:18) Ns Iv 1000 Ml (Sodium Chloride 0.9%) (06/07/22 16:30) Methylprednisolone Sod Succ (Solu-Medrol (7/14/22 16:30) Medications Given in ED Current Medications Medications Dose Ordered Sig/Minh Route Start Time Stop Time Status Last Admin Dose Admin Ceftriaxone Sodium/Dextrose 50 ml @ 100 mls/hr ONCE ONCE IV 06/07/22 15:30 06/07/22 15:59 DC 06/07/22 15:50 100 MLS/HR Sodium Chloride 500 ml @ 0 mls/hr Q0M ONCE IV 06/07/22 15:30 06/07/22 15:31 DC 06/07/22 15:50 0 MLS/HR Vital Signs/I&O 06/07/22 15:03 Temp 37.4 Pulse 144 Resp 16 B/P (MAP) 133/93 (106) Pulse Ox 95 O2 Delivery Nasal Cannula O2 Flow Rate 3.00 Capillary Refill : Progress Note #1: Time: 15:42 Progress Note Based on the urine culture and presentation I suspect that her 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 She has had frequent procedures for bladder surgeries and would be unlikely to throw a clean sterile specimen. We will check some labs including markers inflammation and recheck some blood cultures. The previous blood cultures were no growth. If they look okay and then we may just let her go home. We will also give her a little aliquot of fluids and see how she does with this. We will check a BNP. She does complain of having increased edema around her legs which is probably due to receiving IV fluids while inpatient. More IV fluids may not have any effect on her heart rate but would possibly contribute to her gravity dependent edema. She is not having external increased work of breathing and states that the breathing treatment helped. She still has some auscultated bowel wheezes although they are certainly mild. We will get an ABG. Progress Note #2: Time: 16:29 Progress Note ABG demonstrates borderline COPD exacerbation. She is breathing better after a breathing treatment. We will send her home with a nebulizer and DuoNeb pre scription. Will give her a dose of steroids as I feel like her urine represents commensal colonization. ECG Initial ECG Impression Date: Jun 07, 2022 Initial ECG Impression Time: 15:27 Initial ECG Rate: 133 Initial ECG Rhythm: S.Tach Initial ECG Intervals: Normal Comment Suspect this is sinus rhythm with tachycardia however the possibility exists it could also be atrial flutter with a 2:1 response. Diagnostic Imaging Diagonstic Imaging: Xray Plain Films/CT/US/NM/MRI: chest Comments [facility]. [place], [place] NAME: CHELSEA GUTIERREZ [facility] REC#: [id number] PT STATUS: REG ER : 1965 PHYSICIAN: MIGEL WEAVER MD ADMIT DATE: 06/07/22/ER Signed Date of Exam:06/07/22 CHEST 1 VIEW, AP/PA ONLY Indication: Shortness of breath Portable chest 3:42 PM There is cardiomegaly. There appears be hiatal hernia. Pulmonary vascularity is normal. There are no infiltrates, effusions or pneumothoraces. IMPRESSION: Cardiomegaly without evidence of pulmonary venous hypertension. Large hiatal hernia. Dictated by: Dictated on workstation # [id number] Dict: 06/07/22 1543 Trans: 06/07/22 1544 TCB [id number] Interpreted by: XIANG GUTHRIE MD Electronically signed by: XIANG GUTHRIE MD 06/07/22 1544 Reviewed: Reviewed by Me Departure Impression Primary Impression: COPD with exacerbation Additional Impression: Dependent edema Disposition: 01 HOME, SELF-CARE Condition: Stable Departure-Patient Inst. Decision time for Depature: 16:32 Referrals: NO,LOCAL PHYSICIAN (PCP) Primary Care Physician ANALI DUFF (Family) Primary Care Physician Patient Instructions: Exacerbation of COPD, How to Use a Nebulizer ED, COPD Exacerbation, Adult ED Add. Discharge Instructions: You may continue your antibiotics to completion. Drink plenty of fluids. DuoNeb through the nebulizer inhaled every 4 hours as needed for coughing wheezing or shortness of air. Walk around to help remove the dependent edema in your legs. You can also prop your legs up above the level of your heart while at rest. Finally you can use compression stockings or an David wrap to help with the swelling in your legs. Return to the ER promptly for severe shortness of air or other worrisome symptoms. Otherwise follow-up in 1 to 2 weeks with your primary care doctor for recheck. All discharge instructions reviewed with patient and/or family. Voiced understanding. Scripts Methylprednisolone (Methylprednisolone Dose Pack) 4 Mg Tab.ds.pk 4 MG PO UD for 6 Days, #21 PKG 0 Refills PER DOSE PACK INSTRUCTIONS Prov: MIGEL WEAVER 06/07/22 Ipratropium/Albuterol Sulfate (Iprat-Albut 0.5-3(2.5) mg/3 ml) 0.5 Mg-3 Mg (2.5 Mg Base)/3 Ml Ampul.neb 3 ML IH Q4H PRN for SHORTNESS OF BREATH for 14 Days, #60 EACH 0 Refills Prov: MIGEL WEAVER 06/07/22 Copy Copies To 1: JANNY MILLER MD, TITUS J Jun 07, 2022 15:39
[2022-06-07 15:42] LABS: ALBUMIN 2.9 GM/DL (3.2-4.5); CHLORIDE 97 MMOL/L (98-107); SODIUM 136 MMOL/L (135-145)
[2022-06-07 15:43] LABS: CALCIUM 8.8 MG/DL (8.5-10.1)
[2022-06-07 15:44] LABS: GLUCOSE 134 MG/DL (70-105)
[2022-06-07 15:45] LABS: TOTAL PROTEIN 7.6 GM/DL (6.4-8.2)
--- NOTE | 2022-06-07 15:45 | Diagnostic Imaging Report ---
Indication: Shortness of breath Portable chest 3:42 PM There is cardiomegaly. There appears be hiatal hernia. Pulmonary vascularity is normal. There are no infiltrates, effusions or pneumothoraces. IMPRESSION: Cardiomegaly without evidence of pulmonary venous hypertension. Large hiatal hernia. Dictated by: Dictated on workstation # [id number]
[2022-06-07 15:46] LABS: BILIRUBIN,TOTAL 0.5 MG/DL (0.1-1.0); CARBON DIOXIDE 27 MMOL/L (21-32)
[2022-06-07 15:48] LABS: ALKALINE PHOSPHATASE 169 U/L (40-136); CREATININE SERUM 0.82 MG/DL (0.60-1.30); GFR ESTIMATED 82
[2022-06-07 15:49] LABS: BUN/CREATININE RATIO 15
[2022-06-07 15:51] LABS: ALANINE AMINOTRANSFERASE 75 U/L (0-55)
[2022-06-07 15:54] LABS: INR 1.1 (0.8-1.4); PROTHROMBIN TIME PATIENT 14.6 SEC (12.2-14.7)
[2022-06-07 16:00] LABS: BACTERIA,URINE MODERATE /HPF; BILIRUBIN,URINE NEGATIVE (NEGATIVE); CLARITY,URINE TURBID; COLOR,URINE YELLOW; GLUCOSE, URINE (UA) NEGATIVE (NEGATIVE); KETONES,URINE NEGATIVE (NEGATIVE); LEUKOCYTE ESTERASE ,URINE 1+ (NEGATIVE); NITRITE,URINE NEGATIVE (NEGATIVE); PROTEIN,URINE 3+ (NEGATIVE); WBC,URINE >100 /HPF
[2022-06-07 16:01] LABS: SQUAMOUS EPITHELIAL CELL,UR 0-2 /HPF; YEAST,URINE MODERATE /HPF
[2022-06-07] MEDS ORDERED: NS IV 1000 ML 1,000 ML IV SCH (16:30)
[2022-06-07] MEDS ORDERED: HYDROcodone/APAP 7.5 MG/325 MG (LORTAB, LORCET PLUS) TABLET PO ONE (16:30)
[2022-06-07] MEDS ORDERED: methylPREDNISolone 125 MG (Solu-MEDROL) VIAL IVP ONE (16:30)
[2022-06-07] MEDS ORDERED: IPRA3AMP31 IH (16:34)
[2022-06-07] MEDS ORDERED: METH4TAB10 PO (16:34)
[2022-06-07 17:25] VITALS: BP 140/83
== END 2022-06-07 18:31 | disposition home or self-care (01) ==
LOC: EDUNIT# 15:00 → ER 15:01
DX: J44.1 Chronic obstructive pulmonary disease with (acute) exacerbation (principal); R60.0 Localized edema; Z79.899 Other long term (current) drug therapy
CPT/HCPCS: 36415; 71045; 80053; 81000; 82805; 83605; 83880; 84484; 85025; 85610; 85730; 87040; 87077; 87088; 87186; 93005

== ENCOUNTER 2022-06-22 21:39 | Inpatient (IN) | payer MEDICARE, MEDICAID ==
[~2022-06-22] VITALS: Ht 162.6 cm; Wt 155.0 kg
[~2022-06-22 21:39] MED LIST changes: +IPRA3AMP31 IH; +METH4TAB10 PO
[2022-06-22] MEDS ORDERED: ONDANSETRON 4 MG/2 ML (SDV) Z0FRAN IVP ONE (21:45)
[2022-06-22] MEDS ORDERED: CEFEPIME INJECTION 1,000 MG in NS (IVPB) 50 ML IV ONE (21:45)
[2022-06-22] MEDS ORDERED: NS IV 1000 ML 1,000 ML IV SCH ×2 (21:45)
[2022-06-22 22:02] LABS: BASOPHILS % (AUTO) 0 % (0-10); CLARITY,URINE CLOUDY; COLOR,URINE YELLOW; EOSINOPHILS # (AUTO) 0.1 10^3/uL (0.0-0.3); EOSINOPHILS % (AUTO) 1 % (0-10); GLUCOSE, URINE (UA) NEGATIVE (NEGATIVE); HEMATOCRIT 33 % (35-52); HEMOGLOBIN 9.8 g/dL (11.5-16.0); KETONES,URINE NEGATIVE (NEGATIVE); LEUKOCYTE ESTERASE ,URINE 2+ (NEGATIVE); LYMPHOCYTES % (AUTO) 7 % (12-44); MEAN CORPUSCULAR HEMOGLOBIN 28 pg (25-34); MEAN CORPUSCULAR HGB CONC 29 g/dL (32-36); MEAN CORPUSCULAR VOLUME 95 fL (80-99); MEAN PLATELET VOLUME 10.7 fL (9.0-12.2); MONOCYTES # (AUTO) 1.3 10^3/uL (0.0-1.0); MONOCYTES % (AUTO) 8 % (0-12); NEUTROPHILS # (AUTO) 12.7 10^3/uL (1.8-7.8); NEUTROPHILS % (AUTO) 83 % (42-75); NITRITE,URINE POSITIVE (NEGATIVE); PH,URINE 6.5 (5-9); PLATELET COUNT 413 10^3/uL (130-400); PROTEIN,URINE 2+ (NEGATIVE); WHITE BLOOD COUNT 15.3 10^3/uL (4.3-11.0)
[2022-06-22 22:12] LABS: BACTERIA,URINE LARGE /HPF; BILIRUBIN,URINE 1+ (NEGATIVE); RBC,URINE 25-50 /HPF; WBC,URINE >100 /HPF
[2022-06-22 22:15] LABS: INR 2.2 (0.8-1.4); PROTHROMBIN TIME PATIENT 24.8 SEC (12.2-14.7)
[2022-06-22 22:19] LABS: EOSINOPHILS % (MANUAL) 1 %; LYMPHOCYTES % (MANUAL) 4 %; MONOCYTES % (MANUAL) 12 %; NEUTROPHILS % (MANUAL) 83 %
[2022-06-22 22:25] LABS: ERYTHROCYTE SEDIMENTATION RATE > 140 MM/HR (0-30)
[2022-06-22 22:28] LABS: ALBUMIN 2.7 GM/DL (3.2-4.5); CALCIUM 9.5 MG/DL (8.5-10.1); CREATININE SERUM 0.93 MG/DL (0.60-1.30); POTASSIUM 4.9 MMOL/L (3.6-5.0); TOTAL PROTEIN 7.4 GM/DL (6.4-8.2)
--- NOTE | 2022-06-22 22:29 | ED General ---
General Chief Complaint: General Problems/Pain Stated Complaint: NAUSEATED,VOMTITING Source of Information: Patient, Old Records History of Present Illness Date Seen by Provider: Jun 22, 2022 Time Seen by Provider: 21:41 Initial Comments PT ARRIVES VIA EMS FROM HOME--LIVES WITH . NO IV OR TREATMENT BY EMS PT HAS BEEN SICK ALL WEEK HAS HAD LOWER BACK PAIN, LOWER ABDOMINAL PAIN, AND BILATERAL FLANK PAIN X 1 WEEK C/O NAUSEA AND VOMITING ALL WEEK--"CAN'T EAT" BUT IS ABLE TO DRINK HAS BEEN RUNNING A FEVER FOR THE LAST 3 DAYS, UP TO 102. HAS HAD INCREASED WEAKNESS OVER THE LAST FEW DAYS AND IS UNABLE TO STAND PT STATES SHE HAS HAD SEPSIS BEFORE AND SHE FEELS LIKE SHE IS BECOMING SEPTIC AGAIN PT HAS CHRONIC UROSTOMY WELL COLOSTOMY, IN PLACE WAS DX WITH CERVICAL CANCER IN 1995, AND HAD SURGERY, CHEMO AND RADIATION SHE THEN HAD A RECURRENCE OF THE CANCER, AND HAD COMPLETE CYSTECTOMY WITH PERMANENT UROSTOMY, ALONG WITH REMOVAL OF COLON AND RECTUM WITH PERMANENT COLOSTOMY ( PELVIC EXENTERATION) PT HAS HISTORY OF FREQUENT UTI'S WELL KIDNEY STONES. PT WAS ADMITTED 06/01-06/03/22 FOR UTI, ENTERITIS AND DISMISSED HOME ON MACROBID X 5 DAYS PT WAS SEEN HERE 06/07/22 FOR COPD EXACERBATION ( PT WEARS HOME O2 AT 4L/NC) AND WAS DISMISSED HOME ON MEDROL DOSE PACK AND DUO NEB PT HAS HAD ONGOING TACHYCARDIA AND HAS BEEN EVALUATED BY CARDIOLOGY, AND IS ON METOPROLOL HR ON ARRIVAL IS IN 160'S BP 148/111 ON ARRIVAL O2 SATS UPPER 90'S ON O2 AT 4L/NC HAS NOT ATTEMPTED TO CONTACT HER PCP AT ANY TIME FOR THIS PROBLEM HAS NOT SOUGHT CARE UNTIL TONIGHT HAS NOT TAKEN ANYTHING FOR SYMPTOMS PT HAS HAD COVID VACCINE X 3 PCP: CARLO HATHAWAY DUFF Allergies and Home Medications Allergies Coded Allergies: Penicillins (Verified Allergy, Unknown, 06/01/22) gabapentin (Verified Allergy, Unknown, 06/01/22) Patient Home Medication List Home Medication List Reviewed: Yes Acetaminophen (Tylenol Extra Strength) 500 Mg Tablet, 1,000 MG PO Q8H PRN for PAIN-MILD (1-4), (Reported) Entered as Reported by: MARYBEL COHEN on 06/01/22 1538 Atorvastatin Calcium (Atorvastatin Calcium) 40 Mg Tablet, 40 MG PO DAILY, (Re ported) Entered as Reported by: MARYBEL COHEN on 06/01/221537 Last Action: Reviewed Hydrocodone/Acetaminophen (Hydrocodone-Acetamin 7.5-325) 7.5 Mg-325 Mg Tablet, 1-2 EA PO Q6H PRN for PAIN-MODERATE (5-7), (Reported) Entered as Reported by: MARYBEL COHEN on 03/07/21 0901 Last Action: Reviewed Ipratropium/Albuterol Sulfate (Iprat-Albut 0.5-3(2.5) mg/3 ml) 0.5 Mg-3 Mg (2.5 Mg Base)/3 Ml Ampul.neb, 3 ML IH Q4H PRN for SHORTNESS OF BREATH Prescribed by: MIGEL WEAVER on 06/07/221633 Last Action: Reviewed Levothyroxine Sodium (Levothyroxine Sodium) 175 Mcg Tablet, 175 MCG PO DAILY, (Reported) Entered as Reported by: MARYBEL COHEN on 06/01/221537 Last Action: Reviewed Methylprednisolone (Methylprednisolone Dose Pack) 4 Mg Tab.ds.pk, 4 MG PO UD Prescribed by: MIGEL WEAVER on 06/07/22 163 Last Action: Reviewed Metoprolol Succinate (Metoprolol Succinate) 25 Mg Tab.er.24h, 25 MG PO DAILY, (Reported) Entered as Reported by: MARYBEL COHEN on 06/01/221537 Last Action: Reviewed Nitrofurantoin Monohyd/M-Cryst (Macrobid 100 mg Capsule) 100 Mg Capsule, 1 TAB PO BID Prescribed by: TYLER DANIELSON on 06/03/22 1255 Last Action: Reviewed Verapamil HCl (Verapamil HCl) 360 Mg Cap24h.pel, 360 MG PO DAILY, (Reported) Entered as Reported by: MARYBEL COHEN on 06/01/221537 Last Action: Reviewed Review of Systems Review of Systems Constitutional: see HPI, chills, fever, malaise, weakness EENTM: no symptoms reported Respiratory: No cough, No short of breath Cardiovascular: No chest pain Gastrointestinal: see HPI, abdominal pain, loss of appetite, nausea, vomiting Genitourinary: see HPI Musculoskeletal: see HPI, back pain Skin: no symptoms reported; No rash Psychiatric/Neurological: No Symptoms Reported Hematologic/Lymphatic: No Symptoms Reported Immunological/Allergic: no symptoms reported Past Sdznjjd-Mklvou-Lvamus Hx Patient Social History Tobacco Use?: No Smoking Status: Never a Smoker Substance use?: No Alcohol Use?: No Immunizations Up To Date Tetanus Booster (TDap): Unknown First/Initial COVID19 Vaccinat: 09/14 Second COVID19 Vaccination Eduardo: 09/14 Third COVID19 Vaccination Date: 09/14 Seasonal Allergies Seasonal Allergies: No Past Medical History Surgery/Hospitalization HX: colostomy, urostomy, cervical ca, kidney stones, bladder removed, rt foot, gallbladder, copd Surgeries: Yes (SEE BLEOW) Abdominal, Bladder Surgery, Bowel Surgery, Gallbladder, Hysterectomy, Oophorectomy, Orthopedic, Urinary Diversion Respiratory: Yes (PULMONARY HTN; O2 DEPENDENT AT 4L/NC CONTINUOUSLY- OBESITY/HYPOVENTILATION ) Asthma, COPD Currently Using CPAP: No Currently Using BIPAP: No Cardiac: Yes (PULMONARY HTN; TACHYCARDIA) High Cholesterol, Hypertension Neurological: Yes Neuropathy Reproductive Disorders: Yes (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 Genitourinary: Yes (PERMANENT UROSTOMY POUCH) Kidney Infection, Kidney Stones, UTI-Chronic Gastrointestinal: Yes (PERMANENT COLOSTOMY; CHOLECYSTECTOMY) Gastroesophageal Reflux, Obstructive Bowel, Gall Bladder Disease Musculoskeletal: Yes Arthritis, Fibromyalgia, Chronic Back Pain Endocrine: Yes (MORBID OBESITY) Hypothyroidsim HEENT: No Cancer: Yes Cervical Did You Recieve Any Treatments: Yes What Type of Treatment Did You: Chemotherapy, Radiation, Surgical Intervention CERVICAL CANCER DX 1995--HAD HYSTERECTOMY/BSO, CHEMO AND RADIATION HAD RECURRENCE OF CANCER AND HAD COMPLETE PELVIC EXENTERATION WITH COMPLETE REMOVAL OF BLADDER AND PERMANENT UROSTOMY IN RLQ, AND REMOVAL OF RECTOSIGMOID COLON AND PERMANENT COLOSTOMY IN LLQ. Psychosocial: Yes Anxiety Integumentary: No Blood Disorders: No Family Medical History No Pertinent Family Hx PAST SURGICAL HISTORY: -TREATED FOR CERVICAL CANCER WITH MULTIPLE SURGERIES DUE TO RECURRENCE--HAS HAD HYSTERCTOMY WITH BSO, AND LATER COMPLETE PELVIC EXENTERATION, WITH COMPLETE REMOVAL OF BLADDER WITH PERMANENT UROSTOMY IN RLQ, AND REMOVAL OF RECTOSIGMOID COLON AND PERMANENT COLOSTOMY IN LLQ -CHOLECYSTECTOMY -HERNIA REPAIR -RIGHT FOOT SURGERIES DUE TO TRAUMA. Physical Exam Vital Signs Vital Signs - First Documented Capillary Refill : Height, Weight, BMI Height: 5'4.00" Weight: 307lbs. 9.6oz. [id number]; 58.00 BMI Method:Stated General Appearance: No Apparent Distress, WD/WN, Obese (MORBIDLY OBESE), Other HEENT: Moist Mucous Membranes Neck: Normal Inspection Respiratory: Normal Breath Sounds, No Accessory Muscle Use, No Respiratory Distress Cardiovascular: No Murmur, Tachycardia Gastrointestinal: Soft, Tenderness (DIFFUSE LOWER ABDOMINAL TENDERNESS. UROSTOMY IN RLQ, COLOSTOMY IN LLQ. NO SIGNS OF INFECTION AROUND THESE SITES. ) Back: CVA Tenderness (L), CVA Tenderness (R) Extremity: Normal Capillary Refill, Non Tender, Other (UNABLE TO DETERMINE IF EDEMA IS PRESENT DUE TO BODY HABITUS) Neurologic/Psychiatric: Alert, Oriented x3, No Motor/Sensory Deficits, Normal Mood/Affect, field contact technician II-XII Norm as Tested Skin: Normal Color, Warm/Dry; No Rash Focused Exam Sepsis Stage: Sepsis Possible Source: Genitouriary Lactate Level 06/22/22 21:55: Lactic Acid Level 2.09*H Time of Focused Exam: 22:45 Respiratory: Normal Breath Sounds, No Accessory Muscle Use, No Respiratory Distress Cardiovascular: Tachycardia (BUT HR DOWN FROM ARRIVAL) Capillary Refill: Less Than 3 Seconds Skin: normal color, warm/dry Lactic Acid Level Laboratory Tests Test 06/22/22 21:55 Lactic Acid Level 2.09 MMOL/L (0.50-2.00) *H Within 3hrs of presentation: Admin fluids, Admin ABX, Blood cultures prior to ABX's, Focus exam, Lactate level Progress/Results/Core Measures Suspected Sepsis SIRS Temperature: Pulse: Respiratory Rate: Laboratory Tests 06/22/22 21:55: White Blood Count 15.3H Blood Pressure / Mean: 06/22/22 21:55: Lactic Acid Level 2.09*H Laboratory Tests 06/22/22 21:55: Creatinine 0.93, INR Comment 2.2H, Platelet Count 413H, Total Bilirubin 1.0 Results/Orders Lab Results Laboratory Tests Test 06/22/22 21:53 06/22/22 21:55 Range/Units SARS-CoV-2 RNA (RT-PCR) Not Detected Not Detecte White Blood Count 15.3 H 4.3-11.0 10^3/uL Red Blood Count 3.53 L 3.80-5.11 10^6/uL Hemoglobin 9.8 L 11.5-16.0 g/dL Hematocrit 33 L 35-52 % Mean Corpuscular Volume 95 80-99 fL Mean Corpuscular Hemoglobin 28 25-34 pg Mean Corpuscular Hemoglobin Concent 29 L 32-36 g/dL Red Cell Distribution Width 16.4 H 10.0-14.5 % Platelet Count 413 H 130-400 10^3/uL Mean Platelet Volume 10.7 9.0-12.2 fL Immature Granulocyte % (Auto) 1 % Neutrophils (%) (Auto) 83 H 42-75 % Lymphocytes (%) (Auto) 7 L 12-44 % Monocytes (%) (Auto) 8 0-12 % Eosinophils (%) (Auto) 1 0-10 % Basophils (%) (Auto) 0 0-10 % Neutrophils # (Auto) 12.7 H 1.8-7.8 10^3/uL Lymphocytes # (Auto) 1.0 1.0-4.0 10^3/uL Monocytes # (Auto) 1.3 H 0.0-1.0 10^3/uL Eosinophils # (Auto) 0.1 0.0-0.3 10^3/uL Basophils # (Auto) 0.0 0.0-0.1 10^3/uL Immature Granulocyte # (Auto) 0.1 0.0-0.1 10^3/uL Neutrophils % (Manual) 83 % Lymphocytes % (Manual) 4 % Monocytes % (Manual) 12 % Eosinophils % (Manual) 1 % Polychromasia SLIGHT Stomatocytes MODERATE Erythrocyte Sedimentation Rate > 140 H 0-30 MM/HR Prothrombin Time 24.8 H 12.2-14.7 SEC INR Comment 2.2 H 0.8-1.4 Activated Partial Thromboplast Time 75 H 24-35 SEC Urine Color YELLOW Urine Clarity CLOUDY Urine pH 6.5 5-9 Urine Specific [place] 1.020 1.016-1.022 Urine Protein 2+ H NEGATIVE Urine Glucose (UA) NEGATIVE NEGATIVE Urine Ketones NEGATIVE NEGATIVE Urine Nitrite POSITIVE H NEGATIVE Urine Bilirubin 1+ H NEGATIVE Urine Urobilinogen 1.0 < = 1.0 MG/DL Urine Leukocyte Esterase 2+ H NEGATIVE Urine RBC (Auto) 3+ H NEGATIVE Urine RBC 25-50 H /HPF Urine WBC >100 H /HPF Urine Squamous Epithelial Cells 10-25 H /HPF Urine Renal Epithelial Cells NONE /HPF Urine Crystals NONE /LPF Urine Bacteria LARGE H /HPF Urine Casts NONE /LPF Urine Mucus NEGATIVE /LPF Urine Culture Indicated CULTURE PENDING Sodium Level 137 135-145 MMOL/L Potassium Level 4.9 3.6-5.0 MMOL/L Chloride Level 93 L 98-107 MMOL/L Carbon Dioxide Level 29 21-32 MMOL/L Anion Gap 15 H 5-14 MMOL/L Blood Urea Nitrogen 24 H 7-18 MG/DL Creatinine 0.93 0.60-1.30 MG/DL Estimat Glomerular Filtration Rate 71 BUN/Creatinine Ratio 26 Glucose Level 142 H 70-105 MG/DL Lactic Acid Level 2.09 *H 0.50-2.00 MMOL/L Calcium Level 9.5 8.5-10.1 MG/DL Corrected Calcium 10.5 H 8.5-10.1 MG/DL Total Bilirubin 1.0 0.1-1.0 MG/DL Aspartate Amino Transf (AST/SGOT) 43 H 5-34 U/L Alanine Aminotransferase (ALT/SGPT) 47 0-55 U/L Alkaline Phosphatase 267 H 40-136 U/L C-Reactive Protein High Sensitivity 33.30 H 0.00-0.50 MG/DL Total Protein 7.4 6.4-8.2 GM/DL Albumin 2.7 L 3.2-4.5 GM/DL Procalcitonin 0.70 H <0.10 NG/ML My Orders Orders - KITA ROMERO DO Cbc With Automated Diff (06/22/22 21:45) Comprehensive Metabolic Panel (06/22/22 21:45) Blood Culture (06/22/22 21:45) Sputum Culture (06/22/22 21:45) Urinalysis (06/22/22 21:45) Urine Culture (06/22/22 21:45) Protime With Inr (06/22/22 21:45) Partial Thromboplastin Time (06/22/22 21:45) Chest 1 View, Ap/Pa Only (06/22/22 21:45) Ed Iv/Invasive Line Start (06/22/22 21:45) Ed Iv/Invasive Line Start (06/22/22 21:45) Vital Signs Adult Sepsis Patie Q15M (06/22/22 21:45) Remove Rings In Anticipation O (06/22/22 21:45) Lactic Acid Analyzer (06/22/22 21:45) Cefepime Injection (Maxipime Injection) (06/22/22 21:45) Procalcitonin (Pct) (06/22/22 21:45) Hs C Reactive Protein (06/22/22 21:45) Erythrocyte Sedimentation Rate (06/22/22 21:45) Covid 19 Inhouse Test (06/22/22 21:45) Ed Iv/Invasive Line Start (06/22/22 21:45) Ns Iv 1000 Ml (Sodium Chloride 0.9%) (06/22/22 21:45) Ondansetron Injection (Zofran Injectio (06/22/22 21:45) Isolation Central Supply Req (06/22/22 21:45) Ed Iv/Invasive Line Start (06/22/22 21:45) Ns Iv 1000 Ml (Sodium Chloride 0.9%) (06/22/22 21:45) Ekg Tracing (06/22/22 21:56) O2 (06/22/22 21:56) Monitor-Rhythm Ecg Trace Only (06/22/22 21:56) Manual Differential (06/22/22 21:55) Medications Given in ED Current Medications Medications Dose Ordered Sig/Minh Route Start Time Stop Time Status Last Admin Dose Admin Cefepime HCl 1000 mg/Sodium Chloride 50 ml @ 100 mls/hr ONCE ONCE IV 06/22/22 21:45 06/22/22 22:14 DC 06/22/22 22:04 100 MLS/HR Ondansetron HCl 8 mg ONCE ONCE IVP 06/22/22 21:45 06/22/22 21:49 DC 06/22/22 21:57 8 MG Vital Signs/I&O 06/22/22 06/22/22 06/22/22 06/22/22 21:42 21:42 21:42 21:42 Temp 36.7 36.7 Pulse 146 160 Resp 20 20 B/P (MAP) 124/86 148/111 (123) Pulse Ox 98 97 O2 Delivery Nasal Cannula Nasal Cannula Nasal Cannula Nasal Cannula O2 Flow Rate 4.00 4.00 4.00 4.00 06/23/22 00:00 Intake Total 2050 ml Balance 2050 ml Capillary Refill : Progress Note : Progress Note SEPSIS PROTOCOL INITIATED. HR 160 ON ARRIVAL, DOWN TO 130'S AFTER SHE WAS SETTLED ONTO ER CART. HAS CHRONIC TACHYCARDIA. BLOOD PRESSURE 140'S/110'S ON ARRIVAL. O2 SATS 98% ON 4L/NC. GIVEN: -IV FLUIDS -ANTIBIOTICS -NAUSEA MEDICATION -PAIN MEDICATION NO FEVER DURING ER STAY NO DETERIORATION IN PT'S CONDITION DURING ER STAY. PT WISHES TO BE A FULL CODE ECG Initial ECG Impression Date: Jun 22, 2022 Initial ECG Impression Time: 22:01 Initial ECG Rate: 148 Initial ECG Rhythm: S.Tach Initial ECG Impression: Nonspecific Changes Diagnostic Imaging Comments CXR--NO ACUTE PROCESS, PENDING RADIOLOGIST REVIEW Reviewed: Reviewed by Me Departure Communication (Admissions) [id number]--SPOKE WITH DR. OLIVEIRA, HOSPITALIST. ACCEPTS PT FOR ADMIT. Impression Primary Impression: Sepsis Additional Impressions: UTI (urinary tract infection) Sinus tachycardia Obesity hypoventilation syndrome Dehydration Anemia Disposition: ADMITTED INPATIENT Condition: Stable Admissions Decision to Admit Reason: Admit from ER (General) Decision to Admit/Date: Jun 22, 2022 Time/Decision to Admit Time: 23:00 Departure-Patient Inst. Referrals: NO,LOCAL PHYSICIAN (PCP) Primary Care Physician ANALI DUFF (Family) Primary Care Physician KITA ROMERO DO Jun 22, 2022 22:29
[2022-06-22 22:39] LABS: POLYCHROMASIA SLIGHT; STOMATOCYTES MODERATE
[2022-06-22] MEDS ORDERED: KETOROLAC 30 MG/ML VIAL IVP ONE (23:15)
[2022-06-23] VITALS (12 sets, daily range): BP systolic 110–152; BP diastolic 53–83
[2022-06-23] MEDS ORDERED: PATIENT MAY USE OWN MEDS, ALL MC SCH (00:15)
[2022-06-23] MEDS ORDERED: NS IV 1000 ML 1,000 ML ONE (00:25)
[2022-06-23] MEDS ORDERED: ACETAMINOPHEN 500 MG TAB (TYLENOL) PO PRN (00:30)
[2022-06-23] MEDS ORDERED: IBUPROFEN 800 MG (MOTRIN) TAB PO PRN (00:30)
[2022-06-23] MEDS: NS IV 1000 ML 1,000 ML IV SCH ×5 (00:32→21:51)
[2022-06-23] MEDS: ONDANSETRON 4 MG/2 ML (SDV) Z0FRAN IV PRN (00:37)
[2022-06-23] MEDS: CEFEPIME 1,000 MG/NS 50 ML IVPB IV SCH ×8 (03:59→21:50)
[2022-06-23 05:54] LABS: BASOPHILS % (AUTO) 0 % (0-10); EOSINOPHILS # (AUTO) 0.2 10^3/uL (0.0-0.3); EOSINOPHILS % (AUTO) 1 % (0-10); HEMATOCRIT 29 % (35-52); HEMOGLOBIN 8.5 g/dL (11.5-16.0); LYMPHOCYTES # (AUTO) 0.9 10^3/uL (1.0-4.0); LYMPHOCYTES % (AUTO) 8 % (12-44); MEAN CORPUSCULAR HEMOGLOBIN 28 pg (25-34); MEAN CORPUSCULAR HGB CONC 29 g/dL (32-36); MEAN CORPUSCULAR VOLUME 96 fL (80-99); MEAN PLATELET VOLUME 10.8 fL (9.0-12.2); MONOCYTES # (AUTO) 1.3 10^3/uL (0.0-1.0); MONOCYTES % (AUTO) 11 % (0-12); NEUTROPHILS # (AUTO) 8.9 10^3/uL (1.8-7.8); NEUTROPHILS % (AUTO) 79 % (42-75); PLATELET COUNT 332 10^3/uL (130-400); WHITE BLOOD COUNT 11.3 10^3/uL (4.3-11.0)
[2022-06-23 06:09] LABS: ALBUMIN 2.4 GM/DL (3.2-4.5); POTASSIUM 4.5 MMOL/L (3.6-5.0)
[2022-06-23 06:11] LABS: CALCIUM 8.6 MG/DL (8.5-10.1)
[2022-06-23 06:12] LABS: TOTAL PROTEIN 6.3 GM/DL (6.4-8.2)
--- NOTE | 2022-06-23 06:12 | Diagnostic Imaging Report ---
EXAMINATION: Chest 1 view HISTORY: FEVER COMPARISON: 06/07/2022 FINDINGS: Heart size and pulmonary vasculature are stable. There are low lung volumes without consolidation, pleural effusion, or pneumothorax. The osseous structures are intact. IMPRESSION: 1. No acute radiographic abnormality in the chest. Dictated by: Dictated on workstation # [id number]
[2022-06-23 06:14] LABS: BILIRUBIN,TOTAL 0.9 MG/DL (0.1-1.0)
[2022-06-23 06:15] LABS: CREATININE SERUM 0.9 MG/DL (0.60-1.30)
[2022-06-23] MEDS ORDERED: LEVOTHYROXINE 100 MCG (LEVOTHROID) TAB PO SCH (06:30)
[2022-06-23] MEDS ORDERED: LEVOTHYROXINE 100 MCG (LEVOTHROID) TAB ONE (06:33)
[2022-06-23] MEDS ORDERED: LEVOTHYROXINE 75 MCG (LEVOTHROID) TABLET ONE (06:34)
[2022-06-23] MEDS: LEVOTHYROXINE 100 MCG (LEVOTHROID) TAB PO SCH (06:43)
[2022-06-23] MEDS: LEVOTHYROXINE 75 MCG (LEVOTHROID) TABLET PO SCH (06:43)
[2022-06-23] MEDS: VERAPAMIL SR 180 MG (CALAN SR) TAB PO SCH (08:11)
[2022-06-23] MEDS: HYDROcodone/APAP 7.5 MG/325 MG (LORTAB, LORCET PLUS) TABLET PO PRN ×2 (08:12→19:57)
[2022-06-23] MEDS: PROMETHAZINE INJ 25 MG/ML (PHENERGAN) AMP IVP PRN (08:56)
--- NOTE | 2022-06-23 11:18 | History & Physical-Hospitalist ---
History of Present Illness HPI/Chief Complaint 87-year-old female with a past medical history of cervical cancer with chronic urostomy and colostomy who presented to the emergency department due to feeling poorly. She reports she did not want to come to the hospital but she had been feeling sick for so long her forced her to come via EMS. She has had back pain and abdominal pain with nausea and vomiting. She has had a fever for the last 3 days as well. She has a history of sepsis secondary to urinary tract infections and she thought that this was happening again. She does have a known renal calculi and has been seen by urology at both and in [place] and deemed as an operable. Here roughly 2 weeks ago for similar. She is had severe nausea unresponsive to Zofran all night but has improved this morning with Phenergan. She does states she is feeling a little better than when she arrived. Source: patient Date Seen 06/23/22 Time Seen by a Provider: 10:30 Attending Physician No,Local Physician PCP Admitting Physician: Ila Carbone MD Attending Physician: Ila Carbone MD Referring Physician Date of Admission Jun 22, 2022 at 23:00 Home Medications & Allergies Home Medications Reviewed patient Home Medication Reconciliation performed by pharmacy medication reconciliations chemical research technician and/or nursing. Patients Allergies have been reviewed. Allergies Allergies Coded Allergies Penicillins (Verified Allergy, Unknown, 06/01/22) gabapentin (Verified Allergy, Unknown, 06/01/22) Past Gbrcuio-Cecicm-Bjdaif Hx Patient Social History Marrital Status: Tobacco Use?: No Smoking Status: Never a Smoker Smokeless Tobacco Frequency: Never a User Use of E-Cig and/or Vaping dev: No Substance use?: No Alcohol Use?: No Pt feels they are or have been: No Immunizations Up To Date First/Initial COVID19 Vaccinat: 09/14 Second COVID19 Vaccination Eduardo: 09/14 Tetanus Booster (TDap): More Than 5 Years Hepatitis A: No Hepatitis B: No Seasonal Allergies Seasonal Allergies: No Current Status status: No status: No Advance Directives: Yes Communicates: Verbally Primary Language: Kittitian Preferred Spoken Language: Kittitian Sensory deficits: Vision impairment Implanted or Applied Medical D: BiPAP Past Medical History Surgeries: Abdominal, Bladder Surgery, Bowel Surgery, Gallbladder, Hyste rectomy, Oophorectomy, Orthopedic, Urinary Diversion Asthma, COPD Currently Using CPAP: No Currently Using BIPAP: No High Cholesterol, Hypertension Neuropathy 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 Review of Systems Constitutional: fever, malaise EENTM: no symptoms reported Respiratory: No cough, No short of breath Cardiovascular: No chest pain, No palpitations, No syncope Gastrointestinal: abdominal pain, diarrhea, nausea, vomiting Genitourinary: see HPI Musculoskeletal: back pain Skin: no symptoms reported Psychiatric/Neurological: No Symptoms Reported Physical Exam Physical Exam Vital Signs Vital Signs - First Documented Capillary Refill : Less Than 3 Seconds Height, Weight, BMI Height: 5'4.00" Weight: 307lbs. 9.6oz. 139.719808hf; 58.62 BMI Method:Stated General Appearance: No Apparent Distress, Chronically ill, Obese HEENT: PERRL/EOMI, Moist Mucous Membranes; No Scleral Icterus (L), No Scleral Icterus (R) Neck: Normal Inspection, Supple Respiratory: Lungs Clear, No Accessory Muscle Use, No Respiratory Distress Cardiovascular: Regular Rate, Rhythm, No JVD, No Murmur Gastrointestinal: Normal Bowel Sounds, Non Tender, Soft, Other (colostomy and urostomy) Extremity: No Calf Tenderness, No Pedal Edema Neurologic/Psychiatric: Alert, Oriented x3, Normal Mood/Affect; No Aphasia, No Facial Droop Skin: Normal Color, Warm/Dry Lymphatic: No Adenopathy Results Results/Procedures Labs Laboratory Tests 06/22/22 21:55 06/23/22 05:34 Patient resulted labs reviewed. Imaging: Reviewed Imaging Report Imaging [facility] [place] NAME: CHELSEA GUTIERREZ [facility] REC#: [id number] PT STATUS: ADM IN : 1965 PHYSICIAN: KITA ROMERO DO ADMIT DATE: 06/22/22 Signed Date of Exam:06/22/22 CHEST 1 VIEW, AP/PA ONLY EXAMINATION: Chest 1 view HISTORY: FEVER COMPARISON: 06/07/2022 FINDINGS: Heart size and pulmonary vasculature are stable. There are low lung volumes without consolidation, pleural effusion, or pneumothorax. The osseous structures are intact. IMPRESSION: 1. No acute radiographic abnormality in the chest. Dictated by: Dictated on workstation # [id number] Dict: 06/23/2208 Trans: 06/23/22 0745 [facility] [phone] Interpreted by: CANELO GUTHRIE DO Electronically signed by: CANELO GUTHRIE DO 06/23/22 0745 Assessment/Plan Admission Diagnosis Severe Sepsis Admission Status: Inpatient Order (span 2 midnights) Reason for Inpatient Admission: see below Assessment and Plan Severe Sepsis from UTI CT without pyelonephritis, bilateral kidney stones, possible enteritis UA consistent with UTI Urine culture pending still- last culture grew >100CFU of klebsiella Started on Cefepime IV fluids due to nausea and vomiting Kidney stones Nonobstructing per last CT IV fluids Was seen by Trevor and told inoperable per patient Continue home pain meds History of bladder cancer History of cervical cancer Urostomy Colostomy Recommend follow up with oncologist HTN HLD Hypothyoidism Continue home meds COPD Chronic respiratory failure with hypoxia MAT protocol Continue home meds and oxygen on baseline 4lpm Super obesity Obesity hypoventilation syndome Clinically significant, no acute management needs DVT prophylaxis: Lovenox Diagnosis/Problems Diagnosis/Problems (1) Sepsis (2) UTI (urinary tract infection) Status: Acute (3) Obesity hypoventilation syndrome Status: Chronic (4) Sinus tachycardia Status: Acute (5) Dependent edema Status: Acute (6) Kidney stones (7) Super obesity Status: Chronic (8) Chronic respiratory failure with hypoxia Status: Chronic (9) HLD (hyperlipidemia) Status: Chronic (10) Hypertension Status: Chronic (11) Hypothyroidism Status: Chronic (12) COPD (chronic obstructive pulmonary disease) Status: Chronic ILA CARBONE MD Jun 23, 2022 11:18
[2022-06-23] MEDS: MICONAZOLE 2% POWDER (DESENEX AF) 90 GM TOP SCH (21:51)
[2022-06-24] MEDS: CEFEPIME 1,000 MG/NS 50 ML IVPB IV SCH ×8 (03:09→22:33)
[2022-06-24 03:55] VITALS: BP 115/59
[2022-06-24] MEDS: HYDROcodone/APAP 7.5 MG/325 MG (LORTAB, LORCET PLUS) TABLET PO PRN ×2 (04:03→13:34)
[2022-06-24] MEDS: LEVOTHYROXINE 100 MCG (LEVOTHROID) TAB PO SCH (05:31)
[2022-06-24] MEDS: NS IV 1000 ML 1,000 ML IV SCH ×3 (05:31→22:33)
[2022-06-24] MEDS: LEVOTHYROXINE 75 MCG (LEVOTHROID) TABLET PO SCH (05:31)
[2022-06-24 08:29] VITALS: BP 158/85
[2022-06-24] MEDS: VERAPAMIL SR 180 MG (CALAN SR) TAB PO SCH (08:55)
[2022-06-24] MEDS: PROMETHAZINE INJ 25 MG/ML (PHENERGAN) AMP IVP PRN (08:56)
[2022-06-24] MEDS: MICONAZOLE 2% POWDER (DESENEX AF) 90 GM TOP SCH ×2 (08:58→22:33)
[2022-06-24] MEDS: KETOROLAC 30 MG/ML VIAL IV PRN ×2 (09:47→22:33)
[2022-06-24 12:59] VITALS: BP 153/84
[2022-06-24 15:41] VITALS: BP 135/76
--- NOTE | 2022-06-24 16:59 | Consultation - Surgery ---
History of Present Illness History of Present Illness Patient Consulted On(horacio/time) 06/24/22 16:53 Date Seen by Provider: Jun 24, 2022 Time Seen by Provider: 16:53 History of Present Illness Consult requested by Dr. Carbone for n/v possible obstruction. Patient is a 57 year old female with history of cervical cancer and radiation. She had colon resection with colostomy and ileal conduit. Today she has been having slightly more pain in the left upper quadrant. having no output from her colostomy. she was admitted for UTI/sepsis. Patient today more nausea and emesis Pain moderate in LUQ without radiation. Had had PSBO previously resolved on its own. No imaging at this time. Was just in [facility] last week being evaluated for kidney stones but patient too high risk for surgery. Allergies and Home Medications Allergies Coded Allergies: Penicillins (Verified Allergy, Unknown, 06/01/22) gabapentin (Verified Allergy, Unknown, 06/01/22) Patient Home Medication List Home Medication List Reviewed: Yes Acetaminophen (Tylenol Extra Strength) 500 Mg Tablet, 1,000 MG PO Q8H PRN for PAIN-MILD (1-4), (Reported) Entered as Reported by: MARYBEL COHEN on 06/01/22 1538 Atorvastatin Calcium (Atorvastatin Calcium) 40 Mg Tablet, 40 MG PO DAILY, (Reported) Entered as Reported by: MARYBEL COHEN on 06/01/22 1538 Last Action: Continued Hydrocodone/Acetaminophen (Hydrocodone-Acetamin 7.5-325) 7.5 Mg-325 Mg Tablet, 1-2 EA PO Q6H PRN for PAIN-MODERATE (5-7), (Reported) Entered as Reported by: MARYBEL COHEN on 03/07/21 0901 Last Action: Continued Ipratropium/Albuterol Sulfate (Iprat-Albut 0.5-3(2.5) mg/3 ml) 0.5 Mg-3 Mg (2.5 Mg Base)/3 Ml Ampul.neb, 3 ML IH Q4H PRN for SHORTNESS OF BREATH Prescribed by: MIGEL WEAVER on 06/07/22 1634 Last Action: Reviewed Levothyroxine Sodium (Levothyroxine Sodium) 175 Mcg Tablet, 175 MCG PO DAILY, (Reported) Entered as Reported by: MARYBEL COHEN on 06/01/22 1538 Last Action: Converted Methylprednisolone (Methylprednisolone Dose Pack) 4 Mg Tab.ds.pk, 4 MG PO UD Prescribed by: MIGEL WEAVER on 06/07/22 1634 Last Action: Reviewed Metoprolol Succinate (Metoprolol Succinate) 25 Mg Tab.er.24h, 25 MG PO DAILY, (Reported) Entered as Reported by: MARYBEL COHEN on 06/01/22 1538 Last Action: Continued Nitrofurantoin Monohyd/M-Cryst (Macrobid 100 mg Capsule) 100 Mg Capsule, 1 TAB PO BID Prescribed by: TYLER DANIELSON on 06/03/22 1255 Last Action: Reviewed Verapamil HCl (Verapamil HCl) 360 Mg Cap24h.pel, 360 MG PO DAILY, (Reported) Entered as Reported by: MARYBEL COHEN on 06/01/221537 Last Action: Converted Past Iwfftwx-Pqufgq-Tfljgg Hx Patient Social History Smoking Status: Never a Smoker 2nd Hand Smoke Exposure: No Recent Hopitalizations: Yes (INFECTION LAST WEEK) Alcohol Use?: No Have you traveled recently?: No Immunizations Up To Date Tetanus Booster (TDap): Unknown Seasonal Allergies Seasonal Allergies: No Surgeries History of Surgeries: Yes (SEE BLEOW) Surgeries: Abdominal, Bladder Surgery, Bowel Surgery, Gallbladder, Hysterectomy, Oophorectomy, Orthopedic, Urinary Diversion Respiratory History of Respiratory Disorde: Yes (PULMONARY HTN; O2 DEPENDENT AT 4L/NC CONTINUOUSLY-OBESITY/HYPOVENTILATION ) Respiratory Disorders: Asthma, COPD Cardiovascular History of Cardiac Disorders: Yes (PULMONARY HTN; TACHYCARDIA) Cardiac Disorders: High Cholesterol, Hypertension Neurological History of Neurological Disord: Yes Neurological Disorders: Neuropathy Reproductive System Hx Reproductive Disorders: Yes (CERVICAL CANCER) 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 Genitourinary History of Genitourinary Disor: Yes (PERMANENT UROSTOMY POUCH) Genitourinary Disorders: Kidney Infection, Kidney Stones, UTI-Chronic Gastrointestinal History of Gastrointestinal Di: Yes (PERMANENT COLOSTOMY; CHOLECYSTECTOMY) Gastrointestinal Disorders: Gastroesophageal Reflux, Obstructive Bowel, Gall Bladder Disease Musculoskeletal History of Musculoskeletal Dis: Yes Musculoskeletal Disorders: Arthritis, Fibromyalgia, Chronic Back Pain Endocrine History of Endocrine Disorders: Yes (MORBID OBESITY) Endocrine Disorders: Hypothyroidsim HEENT History of HEENT Disorders: No Cancer History of Cancer: Yes Cancer: Cervical Psychosocial History of Psychiatric Problem: Yes Behavioral Health Disorders: Anxiety Integumentary History of Skin or Integumenta: No Blood Transfusions History of Blood Disorders: No Reviewed Nursing Assessment Reviewed/Agree w Nursing PMH: Yes Family Medical History Significant Family History: No Pertinent Family Hx Review of Systems-General Constitutional: No chills, No diaphoresis EENTM: No blurred vision, No double vision Respiratory: No cough, No dyspnea on exertion Cardiovascular: No chest pain, No palpitations Gastrointestinal: abdominal pain (LUQ), nausea, vomiting Genitourinary: other (urostomy) Musculoskeletal: No gout, No joint pain Skin: No change in color, No change in hair/nails Psychiatric/Neurological: Denies Anxiety, Denies Depressed, Denies Emotional Problems All Other Systems Reviewed Negative Unless Noted: Yes (Negative excepted noted.) Physical Exam-General Problems Physical Exam Vital Signs Vital Signs - First Documented Capillary Refill : Less Than 3 Seconds General Appearance: no apparent distress, obese HEENT: PERRL/EOMI, normal ENT inspection Neck: non-tender, supple Respiratory: chest non-tender, no respiratory distress, no accessory muscle use Cardiovascular: regular rate, rhythm, no JVD Gastrointestinal: tenderness (luq, colostomy left abdomen no output, urostomy rlq, parastomal hernia) Back: no CVA tenderness, no vertebral tenderness Extremities: non-tender, normal inspection Neurologic/Psychiatric: alert, normal mood/affect Skin: normal color, warm/dry Lymphatic: no adenopathy Data Review Labs Microbiology 06/22/22 Blood Culture - Preliminary, Resulted Probable Coag Negative Staph 06/22/22 Urine Culture - Preliminary, Resulted Enterobacter Cloacae Complex Enterococcus avium Enterococcus faecalis Assessment/Plan Assessment/Plan Assessment/Plan uti/sepsis n/v possible bowel obstruction kidney stones parastomal hernia continue medical management place ng tube due to n/v try and get symptoms under control then will consider getting CT abd/pelvis with oral contrast to further evaluate patient in agreement with plan NPO NG tube to JERRICA CHRISTIAN DO Jun 24, 2022 16:59
--- NOTE | 2022-06-24 17:02 | Diagnostic Imaging Report ---
CLINICAL INDICATION: NG tube placement. EXAM: Portable chest x-ray upright view. COMPARISON: Chest x-ray dated 06/22/2022. FINDINGS: Nasogastric tube has been placed in the interim with distal portion below the level of the diaphragm and overlying the expected region of the gastric fundus, but the tip is not imaged on this exam. Lungs/pleura: There is mild left basilar atelectasis. Otherwise, lungs are clear. There is no pneumothorax. There is no pleural effusion. Mediastinum: Unremarkable. Pulmonary vasculature: Unremarkable. Heart: There is stable cardiomegaly. Bones/extrathoracic soft tissue: Unremarkable. IMPRESSION: 1: There is mild left basilar atelectasis. There is no lung infiltrate. 2: There is stable cardiomegaly with no significant pulmonary vascular congestion. 3: Nasogastric tube has been placed in the interim with distal portion below the level of the diaphragm and overlying the expected region of the gastric fundus, but the tip is not imaged on this exam. Dictated by: Dictated on workstation # [id number]
[2022-06-24 19:30] VITALS: BP 125/75
[2022-06-25] VITALS: BP 108/62
[2022-06-25 04:25] VITALS: BP 130/70
[2022-06-25] MEDS: KETOROLAC 30 MG/ML VIAL IV PRN ×3 (04:44→21:11)
[2022-06-25] MEDS: CEFEPIME 1,000 MG/NS 50 ML IVPB IV SCH ×6 (04:44→15:20)
[2022-06-25] MEDS: NS IV 1000 ML 1,000 ML IV SCH ×4 (04:45→23:58)
[2022-06-25] MEDS: LEVOTHYROXINE 75 MCG (LEVOTHROID) TABLET PO SCH ×2 (05:53→05:55)
[2022-06-25] MEDS: LEVOTHYROXINE 100 MCG (LEVOTHROID) TAB PO SCH ×2 (05:53→05:55)
[2022-06-25 08:10] VITALS: BP 139/65
[2022-06-25] MEDS ORDERED: DULO60CA59 PO (08:46)
[2022-06-25] MEDS ORDERED: FLUT1BLS3 IH (08:48)
[2022-06-25] MEDS ORDERED: RT-ALBUINH IH (08:49)
[2022-06-25] MEDS ORDERED: IPRA3AMP31 PO (08:49)
[2022-06-25] MEDS: VERAPAMIL SR 180 MG (CALAN SR) TAB PO SCH (09:02)
[2022-06-25] MEDS: fentaNYL INJ 100 MCG/2 ML AMP IV PRN ×2 (09:02→16:08)
[2022-06-25] MEDS: MICONAZOLE 2% POWDER (DESENEX AF) 90 GM TOP SCH ×2 (09:02→20:24)
[2022-06-25 12:03] VITALS: BP 136/75
[2022-06-25] MEDS ORDERED: NS 100 ML (IVPB) BAG IV ONE (13:30)
[2022-06-25] MEDS ORDERED: HOLD METFORMIN - RECEIVED CONTRAST 20 ML VIAL IV SCH (13:30)
[2022-06-25] MEDS ORDERED: IOHEXOL 350 MG/ML 100 ML (OMNIPAQUE 350) VIAL IV ONE (13:30)
[2022-06-25] MEDS ORDERED: DIATRIZOATE MEGLUM/SODIUM 37% 120 ML (GASTROGRAFIN) PO ONE (13:45)
[2022-06-25] MEDS ORDERED: morphine INJ 4 MG/ML 1 ML (VIAL/SYRINGE) IVP ONE (14:45)
--- NOTE | 2022-06-25 14:46 | Progress Note - Surgery ---
Subjective Date Seen by a Provider: Jun 25, 2022 Time Seen by a Provider: 14:40 Subjective/Events-last exam Pt is laying in bed in mild discomfort, but feeling better than yesteday. Ng tube in place. Not having the nausea and emesis like yesterday. States that pain is well controlled on medications. Pt is on nasal cannula 4L high flow. Pt states that she has not had a colostomy output. Focused Exam Lactate Level 06/22/22 21:55: Lactic Acid Level 2.09*H 06/23/22 00:45: Lactic Acid Level 1.06 Time of Focused Exam: 22:45 Objective Exam Vital Signs Date Time Temp Pulse Resp B/P (MAP) Pulse Ox O2 Delivery O2 Flow Rate FiO2 06/25/22 12:14 125 06/25/22 12:03 36.1 136 75 136/75 (95) 98 High Flow N/C 4.00 06/25/22 08:10 36.6 124 20 139/65 (89) 98 High Flow N/C 4.00 06/25/22 08:00 Nasal Cannula 4.00 06/25/22 07:57 Nasal Cannula 4.00 06/25/22 07:06 122 06/25/22 04:25 36.3 124 18 130/70 (90) 96 Nasal Cannula 4.00 06/25/22 01:00 118 06/25/22 00:00 36.3 126 22 108/62 (77) 97 Nasal Cannula 4.00 06/24/22 20:00 Nasal Cannula 4.00 06/24/22 19:30 36.3 111 21 125/75 (92) 99 Nasal Cannula 4.00 06/24/22 19:00 111 06/24/22 15:41 35.9 108 20 135/76 (95) 95 Nasal Cannula 4.00 I & O 06/25/22 06:59 Intake Total 1460 ml Output Total 2475 ml Balance -1015 ml Capillary Refill : Less Than 3 Seconds General Appearance: No Apparent Distress, Chronically ill, Obese HEENT: PERRL/EOMI, Moist Mucous Membranes; No Scleral Icterus (L), No Scleral Icterus (R) Neck: Normal Inspection, Supple Respiratory: Lungs Clear, No Accessory Muscle Use, No Respiratory Distress Cardiovascular: No JVD, No Murmur, Tachycardia Gastrointestinal: tenderness (luq, colostomy left abdomen no output, urostomy rlq, parastomal hernia), hernia Extremity: No Calf Tenderness, Pedal Edema (2+ pitting edema b/l of LE) Neurologic/Psychiatric: Alert, Oriented x3, Normal Mood/Affect; No Aphasia, No Facial Droop Skin: Normal Color, Warm/Dry Lymphatic: No Adenopathy Results Lab Microbiology 06/22/22 Blood Culture - Preliminary, Resulted Staph, 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
[2022-06-25 16:00] VITALS: BP 127/58
--- NOTE | 2022-06-25 16:29 | Diagnostic Imaging Report ---
EXAMINATION: CT abdomen and pelvis with intravenous contrast. TECHNIQUE: Multiple contiguous axial images were obtained through the abdomen and pelvis after the uneventful administration of intravenous contrast. All CT scans use one or more of the following dose optimizing techniques: automated exposure control, MA and/or KvP adjustment based on patient size and exam type or iterative reconstruction. HISTORY: Nausea and vomiting COMPARISON: 06/01/2022 FINDINGS: Limited views of the lower thorax show a small left pleural effusion and bibasilar atelectasis. The liver is normal without suspicious lesion. There is a cyst in the liver. There is mild intrahepatic and extrahepatic biliary ductal dilation with enhancement of the common hepatic duct. Gallbladder is absent. Pancreas is normal. Spleen is normal. Adrenal glands are normal. There are numerous nonobstructing stones in both kidneys. There is no hydronephrosis. Urinary bladder is not seen, possibly resected. There are two ostomies in the abdominal wall with one potentially representing an ileal conduit. There is a parastomal hernia in the left lower quadrant. There has been a rectal resection. There is no bowel dilation. Contrast extends to the level of the ostomy in the right lower quadrant. There are loculated areas of fluid in the abdomen which is increased from prior exam. There are surgical clips in the pelvis. There are enlarged retroperitoneal lymph nodes measuring up to 15 mm, previously 12 mm (series 2, image 64). There are unchanged enlarged bilateral inguinal lymph nodes. There is skin thickening and irregularity with subcutaneous stranding at the mons pubis. Feeding tube is in the duodenum. Aorta is normal in caliber without aneurysm. There are no suspicious osseus lesions. IMPRESSION: 1. No bowel obstruction. There are new loculated fluid collections in the abdomen with peripheral wall enhancement which may represent peritonitis or metastatic peritoneal disease. 2. Continued increase in size of retroperitoneal lymph nodes concerning for metastatic disease. 3. Skin thickening and irregularity with subcutaneous stranding at the mons pubis, correlate for cellulitis. Dictated by: Dictated on workstation # [id number]
[2022-06-25] MEDS ORDERED: VANCOMYCIN INJECTION 0.1 MG in NS (IVPB) 250 ML IV SCH (16:30)
--- NOTE | 2022-06-25 16:32 | Progress Note - Hospitalist ---
Subjective HPI/CC On Admission Date Seen by Provider: Jun 25, 2022 Time Seen by Provider: 11:00 87-year-old female with a past medical history of cervical cancer with chronic urostomy and colostomy who presented to the emergency department due to feeling poorly. She reports she did not want to come to the hospital but she had been feeling sick for so long her forced her to come via EMS. She has had back pain and abdominal pain with nausea and vomiting. She has had a fever for the last 3 days as well. She has a history of sepsis secondary to urinary tract infections and she thought that this was happening again. She does have a known renal calculi and has been seen by urology at both and in [place] and deemed as an operable. Here roughly 2 weeks ago for similar. She is had severe nausea unresponsive to Zofran all night but has improved this morning with Phenergan. She does states she is feeling a little better than w hen she arrived. Subjective/Events-last exam She is still feeling unwell. She has abdominal pain. She is not nauseous. She is not having fevers. Focused Exam Lactate Level 06/22/22 21:55: Lactic Acid Level 2.09*H 06/23/22 00:45: Lactic Acid Level 1.06 Time of Focused Exam: 22:45 Objective Exam Vital Signs Vital Signs Date Time Temp Pulse Resp B/P (MAP) Pulse Ox O2 Delivery O2 Flow Rate FiO2 06/25/22 16:00 37.7 125 20 127/58 (81) 96 High Flow N/C 4.00 Capillary Refill : Less Than 3 Seconds General Appearance: No Apparent Distress, Obese Respiratory: Lungs Clear, No Respiratory Distress Cardiovascular: No Murmur, Tachycardia Gastrointestinal: Normal Bowel Sounds, Soft, Tenderness, Other (urostomy and colostomy) Extremity: Normal Inspection, Pedal Edema Neurologic/Psychiatric: Alert, Normal Mood/Affect Skin: Normal Color, Warm/Dry Results/Procedures Lab Patient resulted labs reviewed. Imaging: Reviewed Imaging Report Assessment/Plan Assessment and Plan Assess & Plan/Chief Complaint Severe sepsis due to UTI CT without pyelonephritis, bilateral kidney stones, possible enteritis Urine culture with Enterococcus avium, Enterococcus faecalis, and Enterobacter Currently on Cefepime Transition to Vancomycin and Rocephin SBO NG tube in place NPO Surgery following CT Abdomen ordered Kidney stones Nonobstructing per last CT IV fluids Was seen by Trevor and told inoperable per patient Continue home pain meds History of bladder cancer History of cervical cancer Urostomy Colostomy Recommend follow up with oncologist HTN HLD Hypothyoidism Continue home meds COPD Chronic respiratory failure with hypoxia MAT protocol Continue home meds and oxygen on baseline 4lpm Super obesity Obesity hypoventilation syndome Clinically significant, no acute management needs DVT prophylaxis: Lovenox Diagnosis/Problems Diagnosis/Problems (1) SBO (small bowel obstruction) Status: Acute (2) Severe sepsis Status: Acute (3) UTI (urinary tract infection) Status: Acute (4) Kidney stones Status: Chronic (5) Chronic respiratory failure with hypoxia Status: Chronic (6) COPD (chronic obstructive pulmonary disease) Status: Chronic (7) Super obesity Status: Chronic TYLER DANIELSON MD Jun 25, 2022 16:32
[2022-06-25] MEDS: cefTRIAXone 2,000 MG in NS (IVPB) 50 ML IV SCH (16:45)
[2022-06-25] MEDS ORDERED: VANCOMYCIN INJECTION 2,250 MG in NS IV 500 ML 500 ML IV NR (18:00)
[2022-06-25 20:17] VITALS: BP 132/62
[2022-06-25] MEDS ORDERED: CHLORASEPTIC SPRAY 177 ML LIQUID MC PRN (21:30)
[2022-06-26 00:56] VITALS: BP 139/70
[2022-06-26] MEDS: KETOROLAC 30 MG/ML VIAL IV PRN ×4 (03:15→23:08)
[2022-06-26 03:55] VITALS: BP 145/79
[2022-06-26] MEDS: fentaNYL INJ 100 MCG/2 ML AMP IV PRN ×4 (04:08→20:14)
[2022-06-26 05:44] LABS: HEMATOCRIT 26 % (35-52); HEMOGLOBIN 7.5 g/dL (11.5-16.0); MEAN CORPUSCULAR HEMOGLOBIN 28 pg (25-34); MEAN CORPUSCULAR HGB CONC 29 g/dL (32-36); MEAN CORPUSCULAR VOLUME 99 fL (80-99); MEAN PLATELET VOLUME 10.6 fL (9.0-12.2); PLATELET COUNT 397 10^3/uL (130-400); WHITE BLOOD COUNT 11.9 10^3/uL (4.3-11.0)
[2022-06-26] MEDS: LEVOTHYROXINE 75 MCG (LEVOTHROID) TABLET PO SCH (05:54)
[2022-06-26] MEDS: LEVOTHYROXINE 100 MCG (LEVOTHROID) TAB PO SCH (05:54)
[2022-06-26 05:56] LABS: POTASSIUM 4.4 MMOL/L (3.6-5.0)
[2022-06-26 05:57] LABS: CALCIUM 8.3 MG/DL (8.5-10.1)
[2022-06-26 06:01] LABS: CREATININE SERUM 0.74 MG/DL (0.60-1.30)
[2022-06-26] MEDS: NS IV 1000 ML 1,000 ML IV SCH (06:41)
[2022-06-26 07:30] VITALS: BP 125/74
--- NOTE | 2022-06-26 08:00 | Progress Note - Surgery ---
VERONICACROW 06/26/22 0800: Subjective Date Seen by a Provider: Jun 26, 2022 Time Seen by a Provider: 07:58 Subjective/Events-last exam Pt is laying in bed. Still seems to be in mild discomfort. States that her pain is a 8/10 today. Pt still has not had a bowel movement but is voiding urine. Pt had a CT abd/pelvis on 06/26 that showed no bowel obstruction but was suspicious for metastatic peritoneal disease Focused Exam Time of Focused Exam: 22:45 Objective Exam Vital Signs Date Time Temp Pulse Resp B/P (MAP) Pulse Ox O2 Delivery O2 Flow Rate FiO2 06/26/22 07:24 111 06/26/22 03:55 36.0 124 18 145/79 (101) 94 High Flow N/C 4.00 06/26/22 01:00 110 06/26/22 00:56 35.7 122 18 139/70 (93) 96 High Flow N/C 4.00 06/25/22 20:17 36.0 114 18 132/62 (85) 98 High Flow N/C 4.00 06/25/22 20:10 Nasal Cannula 4.00 06/25/22 19:00 99 06/25/22 16:00 37.7 125 20 127/58 (81) 96 High Flow N/C 4.00 06/25/22 12:14 125 06/25/22 12:03 36.1 136 75 136/75 (95) 98 High Flow N/C 4.00 06/25/22 08:10 36.6 124 20 139/65 (89) 98 High Flow N/C 4.00 06/25/22 08:00 Nasal Cannula 4.00 I & O 06/26/22 06:59 Intake Total 2000 ml Output Total 1775 ml Balance 225 ml Capillary Refill : Less Than 3 Seconds General Appearance: No Apparent Distress, Chronically ill, Obese HEENT: PERRL/EOMI, Moist Mucous Membranes; No Scleral Icterus (L), No Scleral Icterus (R) Neck: Normal Inspection, Supple Respiratory: Lungs Clear, No Accessory Muscle Use, No Respiratory Distress Cardiovascular: No JVD, No Murmur, Tachycardia Gastrointestinal: tenderness (luq, colostomy left abdomen no output, urostomy rlq, parastomal hernia), hernia Extremity: No Calf Tenderness, Pedal Edema (2+ pitting edema b/l of LE) Neurologic/Psychiatric: Alert, Oriented x3, Normal Mood/Affect; No Aphasia, No Facial Droop Skin: Normal Color, Warm/Dry Lymphatic: No Adenopathy Results Lab Laboratory Tests 06/26/22 05:21: White Blood Count 11.9H, Red Blood Count 2.66L, Hemoglobin 7.5L, Hematocrit 26L, Mean Corpuscular Volume 99, Mean Corpuscular Hemoglobin 28, Mean Corpuscular Hemoglobin Concent 29L, Red Cell Distribution Width 16.4H, Platelet Count 397, Mean Platelet Volume 10.6, Sodium Level 145, Potassium Level 4.4, Chloride Level 108H, Carbon Dioxide Level 25, Anion Gap 12, Blood Urea Nitrogen 27H, Creatinine 0.74, Estimat Glomerular Filtration Rate 93, BUN/Creatinine Ratio 36, Glucose Level 73, Calcium Level 8.3L Microbiology 06/22/22 Blood Culture - Preliminary, Resulted Staph, 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 Patient with slight discomfort but still feeling better. She has not had anything out of her colostomy. She is having fluid out of her urostomy. Patient had CT scan that did not demonstrate any bowel obstruction but she had findings suspicious for metastatic peritoneal disease. She has no new complaints she denies any nausea vomiting fever sweats chills shortness of breath or chest pain at this time. Objective Exam General Appearance: No Apparent Distress, Chronically ill, Obese HEENT: PERRL/EOMI, Normal ENT Inspection Neck: Normal Inspection, Supple Respiratory: Chest Non Tender, No Accessory Muscle Use, No Respiratory Distress Cardiovascular: No JVD, Tachycardia Gastrointestinal: tenderness (luq, colostomy left abdomen no output, urostomy rlq, parastomal hernia), hernia Extremity: No Calf Tenderness, Pedal Edema (2+ pitting edema b/l of LE) Neurologic/Psychiatric: Alert, Oriented x3, Normal Mood/Affect; No Aphasia, No Facial Droop Skin: Normal Color, Warm/Dry Lymphatic: No Adenopathy Assessment/Plan Assessment/Plan Assessment/Plan uti/sepsis n/v possible bowel obstruction kidney stones parastomal hernia abnormal ct with findings concerning for metastatic disease Spoke with patient concerning possible transfer to where she has had all of her surgeries and just there recently. Also likely would need multispecialty care Pt in agreement with plan NPO NG tube to [facility] Pain control Discussed with Dr. Coombs who called and not able to transfer today. Supervisory-Addendum Brief Verification & Attestation Participated in pt care: history, MDM, physical Personally performed: exam, history, MDM, supervision of care Care discussed with: Medical Student Procedures: n/a Results interpretation: Verified all documentation Verification and Attestation of Medical Student E/M Service A medical student performed and documented this service in my presence. I reviewed and verified all information documented by the medical student and made modifications to such information, when appropriate. I personally performed the physical exam and medical decision making. Jerrica Rodriguez, Jun 26, 2022,20:35 CROW MARTIN Jun 26, 2022 08:00 JERRICA RODRIGUEZ DO Jun 26, 2022 20:34
[2022-06-26] MEDS: VANCOMYCIN 1,750 MG/NS 500 ML IVPB IV SCH ×4 (09:06→17:48)
[2022-06-26] MEDS: VERAPAMIL SR 180 MG (CALAN SR) TAB PO SCH (09:19)
[2022-06-26] MEDS: MICONAZOLE 2% POWDER (DESENEX AF) 90 GM TOP SCH ×2 (09:19→19:40)
[2022-06-26 12:17] VITALS: BP 135/74
[2022-06-26 16:31] VITALS: BP 135/76
--- NOTE | 2022-06-26 17:03 | Progress Note - Hospitalist ---
Subjective HPI/CC On Admission Date Seen by Provider: Jun 26, 2022 Time Seen by Provider: 11:00 87-year-old female with a past medical history of cervical cancer with chronic urostomy and colostomy who presented to the emergency department due to feeling poorly. She reports she did not want to come to the hospital but she had been feeling sick for so long her forced her to come via EMS. She has had back pain and abdominal pain with nausea and vomiting. She has had a fever for the last 3 days as well. She has a history of sepsis secondary to urinary tract infections and she thought that this was happening again. She does have a known renal calculi and has been seen by urology at both and in [place] and deemed as an operable. Here roughly 2 weeks ago for similar. She is had severe nausea unresponsive to Zofran all night but has improved this morning with Phenergan. She does states she is feeling a little better than when she arrived. Subjective/Events-last exam She is still having some pain around the ostomy. She denies nausea and vomiting. She denies fevers and chills. Focused Exam Time of Focused Exam: 22:45 Objective Exam Vital Signs Vital Signs Date Time Temp Pulse Resp B/P (MAP) Pulse Ox O2 Delivery O2 Flow Rate FiO2 06/26/22 16:31 37.0 124 19 135/76 (95) 94 High Flow N/C 4.00 Capillary Refill : Less Than 3 Seconds General Appearance: No Apparent Distress, Chronically ill, Obese HEENT: Other (NG tube in place) Respiratory: No Respiratory Distress, Decreased Breath Sounds Cardiovascular: No Murmur, Tachycardia Gastrointestinal: Normal Bowel Sounds, Soft, Tenderness, Other (urostomy RLQ, colostomy LLQ) Extremity: Normal Inspection, Pedal Edema Neurologic/Psychiatric: Alert, Normal Mood/Affect Skin: Normal Color, Warm/Dry Results/Procedures Lab Laboratory Tests 06/26/22 05:21 Patient resulted labs reviewed. Imaging: Reviewed Imaging Report Assessment/Plan Assessment and Plan Assess & Plan/Chief Complaint Severe sepsis due to UTI CT without pyelonephritis, bilateral kidney stones, possible enteritis Urine culture with Enterococcus avium, Enterococcus faecalis, and Enterobacter Continue Vancomycin and Rocephin SBO Retroperitoneal lymphadenopathy Possible peritoneal metastatic disease BIlateral inguinal lymphadenopathy NG tube in place NPO Surgery following CT Abdomen with no evidence of obstruction, worsening retroperitoneal lymphadenopathy, persistent stable bilateral inguinal lymphadenopathy, concern for peritoneal metastatic disease Attempted transfer to [facility] where she follows for surgical oncology evaluation, no beds available at this time Kidney stones Nonobstructing per last CT Was seen by Trevor and told inoperable per patient Continue home pain meds History of bladder cancer History of cervical cancer Urostomy Colostomy Recommend follow up with oncologist HTN HLD Hypothyoidism Continue home meds COPD Chronic respiratory failure with hypoxia MAT protocol Continue home meds and oxygen on baseline 4lpm Super obesity Obesity hypoventilation syndome Clinically significant, no acute management needs DVT prophylaxis: Lovenox Diagnosis/Problems Diagnosis/Problems (1) SBO (small bowel obstruction) Status: Acute (2) Severe sepsis Status: Acute (3) UTI (urinary tract infection) Status: Acute (4) Kidney stones Status: Chronic (5) Chronic respiratory failure with hypoxia Status: Chronic (6) COPD (chronic obstructive pulmonary disease) Status: Chronic (7) Super obesity Status: Chronic (8) Retroperitoneal lymphadenopathy Status: Acute TYLER DANIELSON MD Jun 26, 2022 17:03
[2022-06-26] MEDS: cefTRIAXone 2,000 MG in NS (IVPB) 50 ML IV SCH (17:12)
[2022-06-26 19:34] VITALS: BP 155/77
[2022-06-27] VITALS (7 sets, daily range): BP systolic 123–177; BP diastolic 76–86
[2022-06-27] MEDS: fentaNYL INJ 100 MCG/2 ML AMP IV PRN ×6 (03:32→18:17)
[2022-06-27] MEDS ORDERED: TROUGH ORDER-PHARMACY XX NR ×2 (05:00→17:00)
[2022-06-27] MEDS: KETOROLAC 30 MG/ML VIAL IV PRN ×2 (05:41→20:30)
[2022-06-27] MEDS: LEVOTHYROXINE 100 MCG (LEVOTHROID) TAB PO SCH (06:27)
[2022-06-27] MEDS: LEVOTHYROXINE 75 MCG (LEVOTHROID) TABLET PO SCH (06:27)
[2022-06-27] MEDS: VANCOMYCIN 1,750 MG/NS 500 ML IVPB IV SCH ×2 (06:28)
--- NOTE | 2022-06-27 07:39 | Progress Note - Surgery ---
VERONICACROW 06/27/22 0739: Subjective Date Seen by a Provider: Jun 27, 2022 Time Seen by a Provider: 07:34 Subjective/Events-last exam Pt is laying bed, in no apparent distress. Pt notes no colostomy output. Discussed possible transfer to today. Focused Exam Time of Focused Exam: 22:45 Objective Exam Vital Signs Date Time Temp Pulse Resp B/P (MAP) Pulse Ox O2 Delivery O2 Flow Rate FiO2 06/27/22 07:12 116 06/27/22 04:24 36.8 120 19 135/76 (95) 96 High Flow N/C 4.00 06/27/22 01:00 130 06/27/22 00:00 36.8 112 16 148/78 (101) 97 Nasal Cannula 4.00 06/26/22 20:00 Nasal Cannula 4.00 06/26/22 19:34 36.0 128 19 155/77 (103) 95 High Flow N/C 4.00 06/26/22 19:07 95 Nasal Cannula 4.00 06/26/22 19:00 128 06/26/22 16:31 37.0 124 19 135/76 (95) 94 High Flow N/C 4.00 06/26/22 12:17 124 06/26/22 12:17 37.0 124 19 135/74 (94) 96 High Flow N/C 4.00 06/26/22 08:00 Nasal Cannula 4.00 I & O 06/27/22 07:00 Intake Total 1567.5 ml Output Total 1925 ml Balance -357.5 ml Capillary Refill : Less Than 3 Seconds General Appearance: No Apparent Distress, Chronically ill, Obese HEENT: PERRL/EOMI, Normal ENT Inspection Neck: Normal Inspection, Supple Respiratory: Chest Non Tender, No Accessory Muscle Use, No Respiratory Distress Cardiovascular: No JVD, Tachycardia Gastrointestinal: tenderness (luq, colostomy left abdomen no output, urostomy rlq, parastomal hernia), hernia Extremity: No Calf Tenderness, Swelling (b/l LE) Neurologic/Psychiatric: Alert, Oriented x3, Normal Mood/Affect; No Aphasia, No Facial Droop Skin: Normal Color, Warm/Dry Lymphatic: No Adenopathy Results Lab Laboratory Tests 06/27/22 05:25: Vancomycin Level Trough 30.8*H Microbiology 06/22/22 Blood Culture - Preliminary, Resulted Staph, Coag Neg (MASH GRINDER) 06/22/22 Urine Culture - Final, Complete Enterobacter Cloacae Complex Enterococcus avium Enterococcus faecalis Assessment/Plan Assessment/Plan Assessment/Plan H/o uti/sepsis kidney stones parastomal hernia abnormal ct with findings concerning for metastatic disease Spoke with patient concerning possible transfer to today Pt in agreement with plan NPO NG tube to LIWS Pain control JERRICA CARPIO DO 06/27/22 0755: Subjective Subjective/Events-last exam Laying in bed. No output from colostomy. Mild tenderness throughout abdomen. Ng tube in place. No n/v fever sweats chillls shortness of breath or chest pain at this time. Objective Exam General Appearance: No Apparent Distress, Chronically ill, Obese HEENT: PERRL/EOMI, Normal ENT Inspection Neck: Normal Inspection, Supple Respiratory: Chest Non Tender, No Accessory Muscle Use, No Respiratory Distress Cardiovascular: No JVD, Tachycardia Gastrointestinal: tenderness (luq, colostomy left abdomen no output, urostomy rlq, parastomal hernia), hernia Extremity: No Calf Tenderness, Swelling (b/l LE) Neurologic/Psychiatric: Alert, Oriented x3, Normal Mood/Affect Skin: Normal Color, Warm/Dry Lymphatic: No Adenopathy Assessment/Plan Assessment/Plan Assessment/Plan uti/sepsis kidney stones parastomal hernia abnormal ct with findings concerning for metastatic disease Spoke with patient concerning possible transfer to where she has had all her surgeries and specialists. Was unable to transfer yesterday. Try today. Pt in agreement with plan NPO NG tube to LI Pain control Supervisory-Addendum Brief Verification & Attestation Participated in pt care: history, MDM, physical Personally performed: exam, history, MDM, supervision of care Care discussed with: Medical Student Procedures: n/a Results interpretation: Verified all documentation Verification and Attestation of Medical Student E/M Service A medical student performed and documented this service in my presence. I reviewed and verified all information documented by the medical student and made modifications to such information, when appropriate. I personally performed the physical exam and medical decision making. Jerrica Carpio, Jun 27, 2022,07:55 CROW MARTIN Jun 27, 2022 07:39 JERRICA CARPIO DO Jun 27, 2022 07:55
[2022-06-27] MEDS: MICONAZOLE 2% POWDER (DESENEX AF) 90 GM TOP SCH ×2 (10:39→19:38)
[2022-06-27] MEDS: VERAPAMIL SR 180 MG (CALAN SR) TAB PO SCH (10:50)
--- NOTE | 2022-06-27 15:40 | Diagnostic Imaging Report ---
INDICATION: No bowel movement for 8 days. Java Web Application Developer radiograph performed prior to small bowel study. [employer] Web Application Developer radiograph does show an NG tube near the junction of the 2nd and 3rd portion of the duodenum. There is a small amount of contrast in the stomach. There is moderate amount contrast throughout the colon. The amount of contrast would compromise the small bowel study therefore small bowel study should be delayed to ensure a colonic clearing of contrast. There are multiple surgical clips in the lower abdomen and pelvis. IMPRESSION: Moderate retained contrast throughout the colon from a prior imaging study. The degree of contrast is too great to perform a small bowel study, therefore small bowel study should be delayed. Dictated by: Dictated on workstation # [id number]
[2022-06-27] MEDS: cefTRIAXone 2,000 MG in NS (IVPB) 50 ML IV SCH (17:04)
--- NOTE | 2022-06-27 17:06 | Progress Note - Hospitalist ---
Subjective HPI/CC On Admission Date Seen by Provider: Jun 27, 2022 Time Seen by Provider: 11:10 87-year-old female with a past medical history of cervical cancer with chronic urostomy and colostomy who presented to the emergency department due to feeling poorly. She reports she did not want to come to the hospital but she had been feeling sick for so long her forced her to come via EMS. She has had back pain and abdominal pain with nausea and vomiting. She has had a fever for the last 3 days as well. She has a history of sepsis secondary to urinary tract infections and she thought that this was happening again. She does have a known renal calculi and has been seen by urology at both and in [place] and deemed as an operable. Here roughly 2 weeks ago for similar. She is had severe nausea unresponsive to Zofran all night but has improved this morning with Phenergan. She does states she is feeling a little better than w hen she arrived. Subjective/Events-last exam She is still having abdominal pain. She wants to try ice chips. She is not passing any gas or stool. Focused Exam Time of Focused Exam: 22:45 Objective Exam Vital Signs Vital Signs Date Time Temp Pulse Resp B/P (MAP) Pulse Ox O2 Delivery O2 Flow Rate FiO2 06/27/22 16:42 122 18 163/86 (111) 98 High Flow N/C 4.00 06/27/22 15:45 36.5 Capillary Refill : Less Than 3 Seconds General Appearance: Mild Distress (uncomfortable), Obese HEENT: PERRL/EOMI, Other (NG tube in place) Respiratory: Lungs Clear, No Respiratory Distress Cardiovascular: No Murmur, Tachycardia Gastrointestinal: Soft, Abnormal Bowel Sounds (hypoactive), Tenderness Extremity: Normal Inspection, Pedal Edema Neurologic/Psychiatric: Alert, Depressed Affect Skin: Normal Color, Warm/Dry Results/Procedures Lab Patient resulted labs reviewed. Imaging: Reviewed Imaging Report Assessment/Plan Assessment and Plan Assess & Plan/Chief Complaint SBO Retroperitoneal lymphadenopathy Possible peritoneal metastatic disease BIlateral inguinal lymphadenopathy NG tube in place NPO, ice chips Surgery following CT Abdomen with no evidence of obstruction, worsening retroperitoneal lymphadenopathy, persistent stable bilateral inguinal lymphadenopathy, concern for peritoneal metastatic disease Attempted transfer to [facility] where she follows for surgical oncology evaluation, declined transfer at this time Small bowel follow through unable to be completed due to retained contrast from CT two days prior UTI due to Enterococcus and Enterobacter Urine culture with Enterococcus avium, Enterococcus faecalis, and Enterobacter Continue Vancomycin and Rocephin Kidney stones Nonobstructing per last CT Reportedly inoperable Continue home pain meds History of bladder cancer History of cervical cancer Urostomy Colostomy Needs follow up with her oncologist HTN HLD Hypothyoidism Continue home meds COPD Chronic respiratory failure with hypoxia MAT protocol Continue home meds and oxygen on baseline 4lpm Super obesity Obesity hypoventilation syndome Clinically significant, no acute management needs DVT prophylaxis: Lovenox Diagnosis/Problems Diagnosis/Problems (1) SBO (small bowel obstruction) Status: Acute (2) Severe sepsis Status: Acute (3) UTI (urinary tract infection) Status: Acute (4) Kidney stones Status: Chronic (5) Chronic respiratory failure with hypoxia Status: Chronic (6) COPD (chronic obstructive pulmonary disease) Status: Chronic (7) Super obesity Status: Chronic (8) Retroperitoneal lymphadenopathy Status: Acute TYLER DANIELSON MD Jun 27, 2022 17:06
[2022-06-27] MEDS: VANCOMYCIN INJECTION 2,000 MG in NS IV 500 ML 500 ML IV SCH (20:29)
[2022-06-28] VITALS (9 sets, daily range): BP systolic 117–173; BP diastolic 62–86
[2022-06-28] MEDS: fentaNYL INJ 100 MCG/2 ML AMP IV PRN ×6 (00:45→16:16)
[2022-06-28] MEDS: LEVOTHYROXINE 75 MCG (LEVOTHROID) TABLET PO SCH (06:48)
[2022-06-28] MEDS: LEVOTHYROXINE 100 MCG (LEVOTHROID) TAB PO SCH (06:48)
[2022-06-28 07:27] LABS: HEMATOCRIT 27 % (35-52); HEMOGLOBIN 7.5 g/dL (11.5-16.0); MEAN CORPUSCULAR HEMOGLOBIN 28 pg (25-34); MEAN CORPUSCULAR HGB CONC 28 g/dL (32-36); MEAN CORPUSCULAR VOLUME 99 fL (80-99); MEAN PLATELET VOLUME 10.1 fL (9.0-12.2); PLATELET COUNT 468 10^3/uL (130-400); WHITE BLOOD COUNT 10.9 10^3/uL (4.3-11.0)
--- NOTE | 2022-06-28 07:34 | Progress Note - Surgery ---
ATULVARSHACROW Loja 06/28/22 0734: Subjective Date Seen by a Provider: Jun 28, 2022 Time Seen by a Provider: 07:29 Subjective/Events-last exam Pt is resting in bed. Pt states her pain is moderately decreased from yesterday and rates it a 5/10. Pt states that she had colostomy output overnight and out put was noted on PE. Pt urine output decreased from .42 yesterday to .05ml/kg/hr today and urine looks red in catheter bag. Pt denies, n/v. Pt had small bowel swallow study yesterday but was delayed due to too much retained contrast from prior imaging. Focused Exam Time of Focused Exam: 22:45 Objective Exam Vital Signs Date Time Temp Pulse Resp B/P (MAP) Pulse Ox O2 Delivery O2 Flow Rate FiO2 06/28/22 03:46 36.7 126 20 137/82 (100) 99 High Flow N/C 4.00 06/28/22 01:00 122 06/28/22 00:00 37.1 126 20 155/86 (109) 97 High Flow N/C 4.00 06/27/22 22:14 Nasal Cannula 4.00 06/27/22 20:00 36.8 127 22 177/83 (114) 96 High Flow N/C 4.00 06/27/22 20:00 Nasal Cannula 4.00 06/27/22 19:00 129 06/27/22 16:42 122 18 163/86 (111) 98 High Flow N/C 4.00 06/27/22 15:45 36.5 124 20 160/85 (110) 98 High Flow N/C 4.00 06/27/22 12:57 36.3 127 20 123/83 (96) 95 High Flow N/C 4.00 06/27/22 12:16 129 06/27/22 08:09 35.8 125 19 123/83 (96) 97 High Flow N/C 4.00 06/27/22 08:00 Nasal Cannula 4.00 I & O 06/28/22 07:00 Intake Total 480 ml Output Total 2525 ml Balance -2045 ml Capillary Refill : Less Than 3 Seconds General Appearance: Chronically ill, Obese HEENT: PERRL/EOMI, Normal ENT Inspection, Other (NG tube in place) Neck: Normal Inspection, Supple Respiratory: No Accessory Muscle Use, No Respiratory Distress Cardiovascular: No JVD, No Murmur, Tachycardia Gastrointestinal: tenderness (luq, colostomy left abdomen no output, urostomy rlq, parastomal hernia), hernia Extremity: Normal Inspection, Pedal Edema Neurologic/Psychiatric: Alert, Depressed Affect Skin: Normal Color, Warm/Dry Lymphatic: No Adenopathy Results Lab Laboratory Tests 06/27/22 17:15: Vancomycin Level Trough 19.1 06/28/22 07:20: Microbiology 06/22/22 Blood Culture - Preliminary, Resulted Staph, Coag Neg ([employer]AMILY [employer] ATTORNEY) 06/22/22 Urine Culture - Final, Complete Enterobacter Cloacae Complex Enterococcus avium Enterococcus faecalis Assessment/Plan Assessment/Plan Assessment/Plan uti/sepsis kidney stones parastomal hernia abnormal ct with findings concerning for metastatic disease CT guided needle biopsy was delayed due to patient's elevated INR, PT, and PTT. Order CMP NPO NG tube to LIWS Pain control JERRICA CARPIO DO 06/28/22 3248: Subjective Subjective/Events-last exam Patient still with abdominal pain but decreased from yesterday. She is having some output from the colostomy now. Is going for interventional radiology drainage of fluid for specimen however her INR was 6 so this was not performed. Patient being started on TPN.Family at bedside. Objective Exam General Appearance: Chronically ill, Obese HEENT: PERRL/EOMI, Normal ENT Inspection, Other (NG tube in place) Neck: Normal Inspection, Supple Respiratory: Chest Non Tender, No Accessory Muscle Use, No Respiratory Distress Cardiovascular: No JVD, No Murmur, Tachycardia Gastrointestinal: tenderness (Upper abdomen, colostomy left abdomen some output, urostomy rlq, parastomal hernia), hernia Extremity: Normal Inspection, Pedal Edema Neurologic/Psychiatric: Alert, Oriented x3, Depressed Affect Skin: Normal Color, Warm/Dry Lymphatic: No Adenopathy Assessment/Plan Assessment/Plan Assessment/Plan uti/sepsis kidney stones parastomal hernia abnormal ct with findings concerning for metastatic disease elevated INR CT guided needle biopsy was delayed due to patient's elevated INR, PT, and PTT. NPO NG tube to LIWS Pain control Repeat labs in am, Supervisory-Addendum Brief Verification & Attestation Participated in pt care: history, MDM, physical Personally performed: exam, history, MDM, supervision of care Care discussed with: Medical Student Procedures: n/a Results interpretation: Verified all documentation Verification and Attestation of Medical Student E/M Service A medical student performed and documented this service in my presence. I reviewed and verified all information documented by the medical student and made modifications to such information, when appropriate. I personally performed the physical exam and medical decision making. Jerrica Carpio, Jun 28, 2022,16:59 CROW MARTIN Jun 28, 2022 07:34 JERRICA CARPIO DO Jun 28, 2022 16:59
[2022-06-28] MEDS: VERAPAMIL SR 180 MG (CALAN SR) TAB PO SCH (07:55)
[2022-06-28] MEDS: HYDROcodone/APAP 7.5 MG/325 MG (LORTAB, LORCET PLUS) TABLET PO PRN (07:56)
[2022-06-28 07:59] LABS: POTASSIUM 4.3 MMOL/L (3.6-5.0)
[2022-06-28 08:00] LABS: CALCIUM 8.9 MG/DL (8.5-10.1)
[2022-06-28] MEDS: MICONAZOLE 2% POWDER (DESENEX AF) 90 GM TOP SCH ×2 (08:03→19:55)
[2022-06-28 08:04] LABS: CREATININE SERUM 0.79 MG/DL (0.60-1.30)
[2022-06-28] MEDS ORDERED: LIDOCAINE 1% INJ 20 ML VIAL INJ ONE (08:30)
[2022-06-28 08:31] LABS: PROTHROMBIN TIME PATIENT 52.7 SEC (12.2-14.7)
[2022-06-28 08:32] LABS: INR 5.8 (0.8-1.4)
[2022-06-28] MEDS: ONDANSETRON 4 MG/2 ML (SDV) Z0FRAN IV PRN (09:42)
[2022-06-28] MEDS: PROMETHAZINE INJ 25 MG/ML (PHENERGAN) AMP IVP PRN ×2 (09:46→18:09)
[2022-06-28 10:01] LABS: FIBRIN DEGRADATION PRODUCTS 5.32 UG/ML (0.00-0.49)
[2022-06-28 10:04] LABS: PROTHROMBIN TIME PATIENT 53.7 SEC (12.2-14.7)
[2022-06-28] MEDS: meTOprolol 5 MG/5 ML (LOPRESSOR) VIAL IV SCH ×3 (11:42→23:57)
[2022-06-28 12:32] LABS: ALBUMIN 2.3 GM/DL (3.2-4.5); POTASSIUM 4.3 MMOL/L (3.6-5.0)
[2022-06-28 12:33] LABS: CALCIUM 8.9 MG/DL (8.5-10.1)
[2022-06-28 12:34] LABS: TOTAL PROTEIN 6.4 GM/DL (6.4-8.2)
[2022-06-28 12:36] LABS: BILIRUBIN,TOTAL 0.4 MG/DL (0.1-1.0)
[2022-06-28 12:38] LABS: CREATININE SERUM 0.81 MG/DL (0.60-1.30)
[2022-06-28 14:04] LABS: MAGNESIUM 2.1 MG/DL (1.6-2.4); PHOSPHORUS 2.9 MG/DL (2.3-4.7)
--- NOTE | 2022-06-28 15:52 | Diagnostic Imaging Report ---
INDICATION: PICC line placement. COMPARISON: 06/24/2022. FINDINGS: A single frontal radiographic view of the chest was obtained and demonstrates an indwelling left upper extremity PICC line with the tip in the low SVC. The gastric tube extends inferiorly beyond the [id number]. Evaluation of the lung he suggest a small left effusion with associated left basilar atelectasis and/or infiltrate. There is no large effusion on the right. No pneumothorax is seen on either side. The cardiac silhouette and pulmonary vasculature are stable. IMPRESSION: 1. New left upper extremity PICC line with the tip in the low SVC. 2. Probable small left effusion with associated atelectasis and/or infiltrate. Dictated by: Dictated on workstation # [id number]
[2022-06-28] MEDS: NS IV 1000 ML 1,000 ML IV SCH (16:16)
[2022-06-28] MEDS: cefTRIAXone 2,000 MG in NS (IVPB) 50 ML IV SCH (16:16)
[2022-06-28] MEDS ORDERED: POTASSIUM ACETATE IV SCH ×9 (17:00)
[2022-06-28] MEDS ORDERED: POTASSIUM PHOSPHATE IV SCH ×9 (17:00)
[2022-06-28] MEDS ORDERED: [UNRECOGNIZED DRUG - OTHER] IV SCH ×9 (17:00)
[2022-06-28] MEDS ORDERED: hydrALAZINE (APESOLINE) 20 MG/ML VIAL IV PRN (19:00)
--- NOTE | 2022-06-28 19:13 | Progress Note - Hospitalist ---
Subjective HPI/CC On Admission Date Seen by Provider: Jun 28, 2022 Time Seen by Provider: 11:15 87-year-old female with a past medical history of cervical cancer with chronic urostomy and colostomy who presented to the emergency department due to feeling poorly. She reports she did not want to come to the hospital but she had been feeling sick for so long her forced her to come via EMS. She has had back pain and abdominal pain with nausea and vomiting. She has had a fever for the last 3 days as well. She has a history of sepsis secondary to urinary tract infections and she thought that this was happening again. She does have a known renal calculi and has been seen by urology at both and in [place] and deemed as an operable. Here roughly 2 weeks ago for similar. She is had severe nausea unresponsive to Zofran all night but has improved this morning with Phenergan. She does states she is feeling a little better than when she arrived. Subjective/Events-last exam She is still having pain. It is better with the pain medicine. She has started having some output from her ostomy. She is thirsty. Focused Exam Time of Focused Exam: 22:45 Objective Exam Vital Signs Vital Signs Date Time Temp Pulse Resp B/P (MAP) Pulse Ox O2 Delivery O2 Flow Rate FiO2 06/28/22 15:28 36.2 117 22 173/78 (109) 94 High Flow N/C 4.00 Capillary Refill : Less Than 3 Seconds General Appearance: No Apparent Distress, Obese Respiratory: Lungs Clear, No Respiratory Distress Cardiovascular: No Murmur, Tachycardia Gastrointestinal: Soft, Abnormal Bowel Sounds (hypoactive), Tenderness (left > right), Other (urostomy and colostomy) Extremity: Normal Inspection, Pedal Edema Neurologic/Psychiatric: Alert, Depressed Affect Skin: Normal Color, Warm/Dry Results/Procedures Lab Laboratory Tests 06/28/22 07:20 Patient resulted labs reviewed. Imaging: Reviewed Imaging Report Assessment/Plan Assessment and Plan Assess & Plan/Chief Complaint SBO Retroperitoneal lymphadenopathy Possible peritoneal metastatic disease BIlateral inguinal lymphadenopathy Coagulopathy Elevated d-dimer NG tube to suction NPO, ice chips Surgery following CT Abdomen with no evidence of obstruction, worsening retroperitoneal lymphadenopathy, persistent stable bilateral inguinal lymphadenopathy, concern for peritoneal metastatic disease Attempted transfer to [facility] where she follows for surgical oncology evaluation, declined transfer at this time Small bowel follow through unable to be completed due to retained contrast from CT two days prior Radiology planning for paracentesis INR with significantly elevated PT/PTT, fibrinogen high, not consistent with DIC 2 units FFP ordered UTI due to Enterococcus and Enterobacter Urine culture with Enterococcus avium, Enterococcus faecalis, and Enterobacter Continue Vancomycin and Rocephin Kidney stones Nonobstructing per last CT Reportedly inoperable Continue home pain meds History of bladder cancer History of cervical cancer Urostomy Colostomy Needs follow up with her oncologist HTN HLD Hypothyoidism Continue home meds COPD Chronic respiratory failure with hypoxia MAT protocol Continue home meds and oxygen on baseline 4lpm Super obesity Obesity hypoventilation syndome Clinically significant, no acute management needs DVT prophylaxis: held due to coagulopathy Diagnosis/Problems Diagnosis/Problems (1) SBO (small bowel obstruction) Status: Acute (2) Severe sepsis Status: Acute (3) UTI (urinary tract infection) Status: Acute (4) Kidney stones Status: Chronic (5) Chronic respiratory failure with hypoxia Status: Chronic (6) COPD (chronic obstructive pulmonary disease) Status: Chronic (7) Super obesity Status: Chronic (8) Retroperitoneal lymphadenopathy Status: Acute (9) Coagulopathy Status: Acute (10) Elevated d-dimer Status: Acute TYLER DANIELSON MD Jun 28, 2022 19:13
[2022-06-28] MEDS: VANCOMYCIN INJECTION 2,000 MG in NS IV 500 ML 500 ML IV SCH (19:55)
[2022-06-29] VITALS (20 sets, daily range): BP systolic 114–186; BP diastolic 59–90
[2022-06-29] MEDS: fentaNYL INJ 100 MCG/2 ML AMP IV PRN ×3 (01:53→21:11)
[2022-06-29] MEDS: meTOprolol 5 MG/5 ML (LOPRESSOR) VIAL IV SCH ×4 (05:45→17:32)
[2022-06-29] MEDS: LEVOTHYROXINE 100 MCG (LEVOTHROID) TAB PO SCH (05:46)
[2022-06-29] MEDS: LEVOTHYROXINE 75 MCG (LEVOTHROID) TABLET PO SCH (05:46)
[2022-06-29] MEDS: NS IV 1000 ML 1,000 ML IV SCH ×2 (05:56→16:12)
[2022-06-29 06:16] LABS: HEMATOCRIT 24 % (35-52); MEAN CORPUSCULAR HEMOGLOBIN 28 pg (25-34); MEAN CORPUSCULAR HGB CONC 28 g/dL (32-36); MEAN CORPUSCULAR VOLUME 100 fL (80-99); MEAN PLATELET VOLUME 10.4 fL (9.0-12.2); PLATELET COUNT 390 10^3/uL (130-400); WHITE BLOOD COUNT 8.9 10^3/uL (4.3-11.0)
[2022-06-29 06:17] LABS: HEMOGLOBIN 6.7 g/dL (11.5-16.0)
[2022-06-29 06:30] LABS: ALBUMIN 2.3 GM/DL (3.2-4.5); POTASSIUM 4.1 MMOL/L (3.6-5.0)
[2022-06-29 06:31] LABS: CALCIUM 8.6 MG/DL (8.5-10.1); INR 3.5 (0.8-1.4); PROTHROMBIN TIME PATIENT 35.7 SEC (12.2-14.7)
[2022-06-29 06:32] LABS: TOTAL PROTEIN 6.1 GM/DL (6.4-8.2)
[2022-06-29 06:34] LABS: BILIRUBIN,TOTAL 0.4 MG/DL (0.1-1.0)
[2022-06-29 06:36] LABS: CREATININE SERUM 0.83 MG/DL (0.60-1.30); PHOSPHORUS 2.9 MG/DL (2.3-4.7)
[2022-06-29 06:39] LABS: MAGNESIUM 1.9 MG/DL (1.6-2.4)
[2022-06-29] MEDS ORDERED: NS IV 500 ML 500 ML IV SCH (07:00)
[2022-06-29] MEDS: HYDROcodone/APAP 7.5 MG/325 MG (LORTAB, LORCET PLUS) TABLET PO PRN ×2 (08:18→14:06)
[2022-06-29] MEDS: VERAPAMIL SR 180 MG (CALAN SR) TAB PO SCH (08:20)
--- NOTE | 2022-06-29 08:29 | Diagnostic Imaging Report ---
PROCEDURE: US Venous Lower Ext Jadiel. INDICATION: Elevated D-dimer, lymphadenopathy TECHNIQUE: Multiple real-time grayscale images were obtained over the lower extremities in various projections, bilaterally. Additional duplex Doppler and color Doppler images were also obtained. CORRELATION STUDY: None FINDINGS: Color and grayscale sonographic images demonstrate no intraluminal defect within the visualized portion of the common femoral, superficial femoral and/or popliteal veins to suggest thrombus formation. These vessels demonstrate normal response to compression and augmentation. No soft tissue fluid collection. IMPRESSION: 1. Negative for deep venous thrombosis of either leg. Dictated by: Dictated on workstation # [id number]
[2022-06-29] MEDS ORDERED: NS IV 500 ML 500 ML ONE ×3 (09:55→16:15)
[2022-06-29] MEDS: MICONAZOLE 2% POWDER (DESENEX AF) 90 GM TOP SCH ×2 (10:06→21:12)
--- NOTE | 2022-06-29 10:47 | Progress Note - Surgery ---
VERONICACROW 06/29/22 1047: Subjective Date Seen by a Provider: Jun 29, 2022 Time Seen by a Provider: 10:41 Subjective/Events-last exam Pt is laying in bed in mild discomfort. Pt notes that her abd pain is improved from yesterday and rates it a 6/10. Pt would like to eat today. Pt notes that s he feels so hungry that she is experiencing nausea. Pt also states that she is having increased shortness of breath today. Family is concerned about a red heber that started under the pt's left eye and moved inferiorly down the pt's left side of the face since last night per family. On examination, pt has a purple/red heber extending from the corner of the left side of the mouth over the mandible and onto the neck. It is warm to the touch but palpation does not elicit pain. Pt's urine output has decreased today from .22 ml/kg/hr to .09 ml/kg/hr. Pt has stool present in colostomy bag upon examination. Pt denies vomiting and CP. Focused Exam Time of Focused Exam: 22:45 Objective Exam Vital Signs Date Time Temp Pulse Resp B/P (MAP) Pulse Ox O2 Delivery O2 Flow Rate FiO2 06/29/22 10:13 157/71 (99) 06/29/22 08:35 36.8 104 20 186/90 (122) 98 High Flow N/C 4.00 06/29/22 08:00 98 High Flow N/C 4.00 06/29/22 07:00 104 06/29/22 06:32 95 Nasal Cannula 4.00 06/29/22 05:59 104 138/81 (100) 06/29/22 03:20 36.5 105 20 136/71 (92) 98 High Flow N/C 4.00 06/29/22 01:42 35.9 103 18 138/84 99 Nasal Cannula 4.00 06/29/22 01:00 101 06/29/22 00:16 36.1 97 18 137/72 97 Nasal Cannula 4.00 06/28/22 23:45 36.7 108 20 139/86 (103) 98 High Flow N/C 4.00 06/28/22 21:53 36.1 106 18 117/62 Nasal Cannula 4.00 06/28/22 20:16 35.9 110 18 139/70 97 Nasal Cannula 3.00 06/28/22 20:00 Nasal Cannula 4.00 06/28/22 20:00 35.6 106 20 142/70 (94) 99 High Flow N/C 4.00 06/28/22 19:00 100 06/28/22 15:28 36.2 117 22 173/78 (109) 94 High Flow N/C 4.00 06/28/22 12:43 116 06/28/22 12:04 35.5 122 20 172/86 (114) 96 High Flow N/C 4.00 I & O 06/29/22 07:00 Intake Total 50 ml Output Total 1750 ml Balance -1700 ml Capillary Refill : Less Than 3 Seconds General Appearance: No Apparent Distress, Obese HEENT: PERRL/EOMI, Normal ENT Inspection, Other (NG tube in place) Neck: Normal Inspection, Supple Respiratory: No Accessory Muscle Use, No Respiratory Distress Cardiovascular: No JVD, Tachycardia Gastrointestinal: tenderness (epigastric and L sided abdominal pain, colostomy left abdomen some output, urostomy rlq, parastomal hernia, hard knot noted in epigastric region), hernia Extremity: Normal Inspection, Pedal Edema Neurologic/Psychiatric: Alert, Depressed Affect Skin: Warm/Dry; No Jaundice Lymphatic: No Adenopathy Results Lab Laboratory Tests 06/28/22 17:16: Glucometer 79 06/28/22 23:49: Glucometer 71 06/29/22 06:08: White Blood Count 8.9, Red Blood Count 2.42L, Hemoglobin 6.7*L, Hematocrit 24L, Mean Corpuscular Volume 100H, Mean Corpuscular Hemoglobin 28, Mean Corpuscular Hemoglobin Concent 28L, Red Cell Distribution Width 15.9H, Platelet Count 390, Mean Platelet Volume 10.4, Prothrombin Time 35.7H, INR Comment 3.5H, Activated Partial Thromboplast Time 90H, Sodium Level 151H, Potassium Level 4.1, Chloride Level 111H, Carbon Dioxide Level 30, Anion Gap 10, Blood Urea Nitrogen 32H, Creatinine 0.83, Estimat Glomerular Filtration Rate 81, BUN/Creatinine Ratio 39, Glucose Level 76, Calcium Level 8.6, Corrected Calcium 10.0, Phosphorus Level 2.9, Magnesium Level 1.9, Total Bilirubin 0.4, Aspartate Amino Transf (AST/SGOT) 42H, Alanine Aminotransferase (ALT/SGPT) 28, Alkaline Phosphatase 83, Total Protein 6.1L, Albumin 2.3L Microbiology 06/22/22 Blood Culture - Final, Complete Staph, Coag Neg (MINCING MACHINE OPERATOR) 06/22/22 Urine Culture - Final, Complete Enterobacter Cloacae Complex Enterococcus avium Enterococcus faecalis Assessment/Plan Assessment/Plan Assessment/Plan uti/sepsis kidney stones parastomal hernia abnormal ct with findings concerning for metastatic disease elevated INR-improved Anemia CT guided needle biopsy was delayed due to patient's elevated INR, PT, and PTT. NPO NG tube to LIWS Pain control Transfusion planned for later today to address decreased hgb. Possible transfer to [facility] in [place] at family's request. JERRICA CARPIO DO 06/29/222023: Subjective Subjective/Events-last exam Patient feeling about the same as yesterday. She is having output from her colostomy. She is hungry. She states she is having hunger pains. She is having a little bit of nausea from the hunger pains she states. Patient is having blood from her urostomy this morning. Her hemoglobin decreased and receiving 1 unit packed red blood cells. Her INR came down to 3.5 and being given 2 more units of FFP. No other complaints at this time denies fever sweats chills or chest pain at this time. Objective Exam General Appearance: No Apparent Distress, Obese HEENT: PERRL/EOMI, Normal ENT Inspection, Other (NG tube in place) Neck: Normal Inspection, Supple Respiratory: Chest Non Tender, No Accessory Muscle Use, No Respiratory Distress Cardiovascular: Regular Rate, Rhythm, No JVD, Tachycardia Gastrointestinal: non tender, soft, tenderness (epigastric and L sided abdominal pain, colostomy left abdomen some output, urostomy rlq bloody output, parastomal hernia), hernia Extremity: Normal Inspection, Pedal Edema Neurologic/Psychiatric: Alert, Oriented x3, Depressed Affect Skin: Normal Color, Warm/Dry Lymphatic: No Adenopathy Assessment/Plan Assessment/Plan Assessment/Plan uti/sepsis kidney stones parastomal hernia abnormal ct with findings concerning for metastatic disease elevated INR-improved some Anemia CT guided needle biopsy was delayed due to patient's elevated INR, PT, and PTT. NPO NG tube to LIWS Pain control Transfusion planned for later today to address decreased hgb 1 unit prbc and 2 ffp Needing multispecialty care. Possible transfer to [facility] in [place] Supervisory-Addendum Brief Verification & Attestation Participated in pt care: history, MDM, physical Personally performed: exam, history, MDM, supervision of care Care discussed with: Medical Student Procedures: n/a Results interpretation: Verified all documentation Verification and Attestation of Medical Student E/M Service A medical student performed and documented this service in my presence. I reviewed and verified all information documented by the medical student and made modifications to such information, when appropriate. I personally performed the physical exam and medical decision making. Jerrica Carpio, Jun 29, 2022,20:27 CROW MARTIN Jun 29, 2022 10:47 JERRICA CARPIO DO Jun 29, 2022 20:24
[2022-06-29] MEDS: ONDANSETRON 4 MG/2 ML (SDV) Z0FRAN IV PRN (11:10)
[2022-06-29] MEDS: PROMETHAZINE INJ 25 MG/ML (PHENERGAN) AMP IVP PRN ×2 (12:39→21:24)
--- NOTE | 2022-06-29 15:36 | Progress Note - Hospitalist ---
Subjective HPI/CC On Admission Date Seen by Provider: Jun 29, 2022 Time Seen by Provider: 11:40 87-year-old female with a past medical history of cervical cancer with chronic urostomy and colostomy who presented to the emergency department due to feeling poorly. She reports she did not want to come to the hospital but she had been feeling sick for so long her forced her to come via EMS. She has had back pain and abdominal pain with nausea and vomiting. She has had a fever for the last 3 days as well. She has a history of sepsis secondary to urinary tract infections and she thought that this was happening again. She does have a known renal calculi and has been seen by urology at both and in [place] and deemed as an operable. Here roughly 2 weeks ago for similar. She is had severe nausea unresponsive to Zofran all night but has improved this morning with Phenergan. She does states she is feeling a little better than when she arrived. Subjective/Events-last exam She is feeling a bit better today. She is having some bleeding from her urostomy. She has had some output from her colostomy. She wants to try to eat/drink something. Focused Exam Time of Focused Exam: 22:45 Objective Exam Vital Signs Vital Signs Date Time Temp Pulse Resp B/P (MAP) Pulse Ox O2 Delivery O2 Flow Rate FiO2 06/29/22 14:57 36.3 90 20 114/62 95 Nasal Cannula 4.00 Capillary Refill : Less Than 3 Seconds General Appearance: No Apparent Distress, Chronically ill, Obese HEENT: Other (NG tube in place) Respiratory: No Respiratory Distress, Decreased Breath Sounds Cardiovascular: No Murmur, Tachycardia Gastrointestinal: Soft, Abnormal Bowel Sounds, Tenderness, Other (urostomy and colostomy) Extremity: Normal Inspection, Pedal Edema Neurologic/Psychiatric: Alert, Normal Mood/Affect, Motor Weakness Skin: Normal Color, Warm/Dry Results/Procedures Lab Laboratory Tests 06/29/22 06:08 Patient resulted labs reviewed. Imaging: Reviewed Imaging Report Assessment/Plan Assessment and Plan Assess & Plan/Chief Complaint SBO Retroperitoneal lymphadenopathy Possible peritoneal metastatic disease BIlateral inguinal lymphadenopathy Coagulopathy Elevated d-dimer NG tube to suction NPO, ice chips Surgery following CT Abdomen with no evidence of obstruction, worsening retroperitoneal lymphadenopathy, persistent stable bilateral inguinal lymphadenopathy, concern for peritoneal metastatic disease Attempted transfer to [facility] where she follows for surgical oncology evaluation, declined transfer at this time, no beds available Small bowel follow through unable to be completed due to retained contrast from CT two days prior INR improving, 3.5 this morning Hgb 6.7 s/p 2 units FFP, 2 more units ordered, 1 unit PRBC US negative for DVT Pending determination for transfer to [facility] UTI due to Enterococcus and Enterobacter Urine culture with Enterococcus avium, Enterococcus faecalis, and Enterob acter Continue Vancomycin and Rocephin Kidney stones Nonobstructing per last CT Reportedly inoperable Continue home pain meds History of bladder cancer History of cervical cancer Urostomy Colostomy Needs follow up with her oncologist HTN HLD Hypothyoidism Continue home meds COPD Chronic respiratory failure with hypoxia MAT protocol Continue home meds and oxygen on baseline 4lpm Super obesity Obesity hypoventilation syndome Clinically significant, no acute management needs DVT prophylaxis: held due to coagulopathy Diagnosis/Problems Diagnosis/Problems (1) SBO (small bowel obstruction) Status: Acute (2) Severe sepsis Status: Acute (3) UTI (urinary tract infection) Status: Acute (4) Kidney stones Status: Chronic (5) Chronic respiratory failure with hypoxia Status: Chronic (6) COPD (chronic obstructive pulmonary disease) Status: Chronic (7) Super obesity Status: Chronic (8) Retroperitoneal lymphadenopathy Status: Acute (9) Coagulopathy Status: Acute (10) Elevated d-dimer Status: Acute TYLER DANIELSON MD Jun 29, 2022 15:36
[2022-06-29] MEDS: cefTRIAXone 2,000 MG in NS (IVPB) 50 ML IV SCH (16:13)
[2022-06-29] MEDS ORDERED: D5W 1000 ML IV SOLUTION 1,000 ML IV SCH (17:00)
[2022-06-29] MEDS: [UNRECOGNIZED DRUG - OTHER] IV SCH ×18 (17:50→21:12)
[2022-06-29] MEDS: POTASSIUM PHOSPHATE IV SCH ×18 (17:50→21:12)
[2022-06-29] MEDS: POTASSIUM ACETATE IV SCH ×18 (17:50→21:12)
[2022-06-29] MEDS: VANCOMYCIN INJECTION 2,000 MG in NS IV 500 ML 500 ML IV SCH (21:11)
[2022-06-30 00:02] VITALS: BP 137/63
[2022-06-30] MEDS: fentaNYL INJ 100 MCG/2 ML AMP IV PRN ×2 (00:02→07:35)
[2022-06-30 04:16] VITALS: BP 142/67
[2022-06-30] MEDS: LEVOTHYROXINE 75 MCG (LEVOTHROID) TABLET PO SCH (05:58)
[2022-06-30] MEDS: meTOprolol 5 MG/5 ML (LOPRESSOR) VIAL IV SCH ×2 (05:58)
[2022-06-30] MEDS: LEVOTHYROXINE 100 MCG (LEVOTHROID) TAB PO SCH (05:58)
[2022-06-30 06:26] LABS: HEMATOCRIT 28 % (35-52); MEAN CORPUSCULAR HEMOGLOBIN 28 pg (25-34); MEAN CORPUSCULAR HGB CONC 28 g/dL (32-36); MEAN CORPUSCULAR VOLUME 99 fL (80-99); MEAN PLATELET VOLUME 10.5 fL (9.0-12.2); PLATELET COUNT 464 10^3/uL (130-400); WHITE BLOOD COUNT 10.6 10^3/uL (4.3-11.0)
[2022-06-30 06:44] LABS: INR 1.3 (0.8-1.4); PROTHROMBIN TIME PATIENT 16.9 SEC (12.2-14.7)
[2022-06-30 06:49] LABS: ALBUMIN 2.4 GM/DL (3.2-4.5)
[2022-06-30 06:50] LABS: CALCIUM 8.7 MG/DL (8.5-10.1)
[2022-06-30 06:52] LABS: TOTAL PROTEIN 6.5 GM/DL (6.4-8.2)
[2022-06-30 06:53] LABS: BILIRUBIN,TOTAL 0.8 MG/DL (0.1-1.0)
[2022-06-30 06:55] LABS: CREATININE SERUM 0.85 MG/DL (0.60-1.30); PHOSPHORUS 2.7 MG/DL (2.3-4.7)
[2022-06-30 07:48] VITALS: BP 177/73
[2022-06-30] MEDS: PROMETHAZINE INJ 25 MG/ML (PHENERGAN) AMP IVP PRN (08:06)
--- NOTE | 2022-06-30 18:42 | Discharge Summary ---
Discharge Summary Hospital Course Was the Problem List Reviewed?: Yes Problems/Dx: (1) SBO (small bowel obstruction) Status: Acute (2) Severe sepsis Status: Acute (3) UTI (urinary tract infection) Status: Acute (4) Kidney stones Status: Chronic (5) Chronic respiratory failure with hypoxia Status: Chronic (6) COPD (chronic obstructive pulmonary disease) Status: Chronic (7) Super obesity Status: Chronic (8) Retroperitoneal lymphadenopathy Status: Acute (9) Coagulopathy Status: Acute (10) Elevated d-dimer Status: Acute Hospital Course Date of Admission: Jun 22, 2022 at 23:00 Admission Diagnosis: Severe sepsis due to UTI Family Physician/Provider: Edita Badillo Date of Discharge: 06/30/22 Discharge Diagnosis: Severe sepsis due to UTI, SBO/Ileus, kidney stones, coagulopathy with hematuria from urostomy, retroperitoneal lymphadenopathy Hospital Course: Kaitlyn Chopra is a 57 year old female with PMH cervical and bladder cancer, urostomy and colostomy, COPD on 4 L continuously, obesity hypoventilation syndrome, super obesity, who presented with abdominal pain and was admitted with severe sepsis due to UTI. She was started on antibiotics and her cultures grew 3 different bacteria, Enterobacter and two strains of Enterococcus. She also had small bowel obstruction/ileus. Surgery was consulted and assisted with her care. She had an NG tube placed. She underwent CT scan which showed no evidence of obstruction. It did show bilateral inguinal lymphadenopathy which was stable, worsening retroperitoneal lymphadenopathy, and concern for peritoneal metastatic disease, as well as chronic bilateral nonobstructing kidney stones. An attempt was made to transfer to [facility] at that time due to concern for recurrence of cancer, but transfer was denied. She continued to have symptoms of SBO/ileus and an attempt was made to perform small bowel follow through, but this was unable to be performed due to retained contrast from CT performed two days earlier. Another attempt was made to transfer to [facility] but due to bed availability she was again denied. She developed a coagulopathy with elevated PT/INR/PTT/d-dimer. A venous ultrasound showed no evidence of DVT. She was given 2 units of FFP. She began having bleeding from her urostomy and was given another 2 units FFP and 1 unit PRBC. She was ultimately transferred to [facility] due to exceeding level of care and need for specialist consultation including urology and possibly surgical oncology. Her vital signs were stable at the time of transfer. She was sent by EMS in fair condition. Labs and Pending Lab Test: Laboratory Tests 06/30/22 00:51: Glucometer 112H 06/30/22 06:10: White Blood Count 10.6, Red Blood Count 2.87L, Hemoglobin 8.0L, Hematocrit 28L, Mean Corpuscular Volume 99, Mean Corpuscular Hemoglobin 28, Mean Corpuscular Hemoglobin Concent 28L, Red Cell Distribution Width 16.3H, Platelet Count 464H, Mean Platelet Volume 10.5, Prothrombin Time 16.9H, INR Comment 1.3, Sodium Level 145, Potassium Level 4.0, Chloride Level 107, Carbon Dioxide Level 31, Anion Gap 7, Blood Urea Nitrogen 32H, Creatinine 0.85, Estimat Glomerular Filtration Rate 79, BUN/Creatinine Ratio 38, Glucose Level 143H, Calcium Level 8.7, Corrected Calcium 10.0, Phosphorus Level 2.7, Magnesium Level 2.0, Total Bilirubin 0.8, Aspartate Amino Transf (AST/SGOT) 38H, Alanine Aminotransferase (ALT/SGPT) 26, Alkaline Phosphatase 79, Total Protein 6.5, Albumin 2.4L Microbiology 06/22/22 Blood Culture - Final, Complete Staph, Coag Neg (CARDIOPULMONARY TECHNOLOGIST CHIEF) 06/22/22 Urine Culture - Final, Complete Enterobacter Cloacae Complex Enterococcus avium Enterococcus faecalis Home Meds Active Reported Proair Hfa (Albuterol Sulfate) 1 Puff Puff 2 Puff IH Q4H PRN 1 PUFF = 90 MCG Iprat-Albut 0.5-3(2.5) mg/3 ml (Ipratropium/Albuterol Sulfate) 0.5 Mg-3 Mg (2.5 Mg Base)/3 Ml Ampul.neb 1 Vial PO Q6H PRN Trelegy Ellipta 100-62.5-25 (Fluticasone/Umeclidin/Vilanter) 100-62.5 Blst.w.dev 1 Each IH DAILY Duloxetine HCl 60 Mg Capsule.dr 60 Mg PO DAILY Tylenol Extra Strength (Acetaminophen) 500 Mg Tablet 500 Mg PO Q8H PRN Atorvastatin Calcium 40 Mg Tablet 40 Mg PO DAILY Verapamil HCl 360 Mg Cap24h.pel 360 Mg PO DAILY Levothyroxine Sodium 175 Mcg Tablet 175 Mcg PO DAILY Metoprolol Succinate 25 Mg Tab.er.24h 25 Mg PO DAILY Hydrocodone-Acetamin 7.5-325 (Hydrocodone/Acetaminophen) 7.5 Mg-325 Mg Tablet 1- 2 Ea PO Q6H PRN Assessment/Pt Instructions Transferred to [facility] Discharge Planning: >30 minutes discharge planning Discharge Instructions Discharge Diet: No Restrictions Activity as Tolerated: Yes Consultations Surgery Discharge Physical Examination Vital Signs Vital Signs Date Time Temp Pulse Resp B/P (MAP) Pulse Ox O2 Delivery O2 Flow Rate FiO2 06/30/22 08:15 96 Nasal Cannula 4.00 06/30/22 07:48 36.2 114 17 177/73 (107) Allergies: Coded Allergies: Penicillins (Verified Allergy, Unknown, 06/01/22) gabapentin (Verified Allergy, Unknown, 06/01/22) Discharge Summary Date of Admission Jun 22, 2022 at 23:00 Date of Discharge Jun 30, 2022 at 09:20 Discharge Date: Jun 30, 2022 Discharge Time: 09:20 Admission Diagnosis Severe Sepsis Consults/Procedures Consulations Surgery Discharge Diagnosis SBO Retroperitoneal lymphadenopathy Possible peritoneal metastatic disease BIlateral inguinal lymphadenopathy Coagulopathy Elevated d-dimer UTI due to Enterococcus and Enterobacter Kidney stones History of bladder cancer History of cervical cancer Urostomy Colostomy HTN HLD Hypothyoidism COPD Chronic respiratory failure with hypoxia Super obesity Obesity hypoventilation syndome (1) SBO (small bowel obstruction) Status: Acute (2) Severe sepsis Status: Acute (3) UTI (urinary tract infection) Status: Acute (4) Kidney stones Status: Chronic (5) Chronic respiratory failure with hypoxia Status: Chronic (6) COPD (chronic obstructive pulmonary disease) Status: Chronic (7) Super obesity Status: Chronic (8) Retroperitoneal lymphadenopathy Status: Acute (9) Coagulopathy Status: Acute (10) Elevated d-dimer Status: Acute TYLER DANIELSON MD Jun 30, 2022 18:36
== END 2022-06-30 09:20 | disposition short-term general hospital (02) | DRG 872 ==
LOC: EDUNIT# 21:39 → ER 21:41 → 4TH 23:00
PROVIDERS: ADMIT Family Medicine; ATTEND Internal Medicine
PROC: 5A0935A Assistance with Respiratory Ventilation, Less than 24 Consecutive Hours, High Flow/Velocity Cannula (ICD-10-PCS; principal; 2022-06-25)
DX: A41.9 Sepsis, unspecified organism (principal); N39.0 Urinary tract infection, site not specified; J96.11 Chronic respiratory failure with hypoxia; D68.9 Coagulation defect, unspecified; K56.7 Ileus, unspecified; E66.2 Morbid (severe) obesity with alveolar hypoventilation; Z68.43 Body mass index [BMI] 50.0-59.9, adult; R65.20 Severe sepsis without septic shock; N20.0 Calculus of kidney; J44.9 Chronic obstructive pulmonary disease, unspecified; R59.1 Generalized enlarged lymph nodes; Z99.81 Dependence on supplemental oxygen; B95.2 Enterococcus as the cause of diseases classified elsewhere; B96.89 Other specified bacterial agents as the cause of diseases classified elsewhere; N99.538 Other complication of continent stoma of urinary tract; E78.00 Pure hypercholesterolemia, unspecified; I10 Essential (primary) hypertension; G62.9 Polyneuropathy, unspecified; K21.9 Gastro-esophageal reflux disease without esophagitis; E86.0 Dehydration; D64.9 Anemia, unspecified; K43.5 Parastomal hernia without obstruction or gangrene; Z20.822 Contact with and (suspected) exposure to COVID-19; M19.90 Unspecified osteoarthritis, unspecified site; M79.7 Fibromyalgia; G89.29 Other chronic pain; M54.9 Dorsalgia, unspecified; E03.9 Hypothyroidism, unspecified; Z85.41 Personal history of malignant neoplasm of cervix uteri; Z92.21 Personal history of antineoplastic chemotherapy; Z92.3 Personal history of irradiation
CPT/HCPCS: 36415; 36569; 71045; 74177; 74250; 76937; 80048; 80053; 80202; 81000; 82947; 83605; 83735; 84100; 84145; 84478; 85007; 85025; 85027; 85379; 85384; 85610; 85652; 85730; 86141; 86850; 86900; 86901; 86920; 87040; 87077; 87088; 87186; 87636; 93005; 93041; 93970; 94760; 96361; 96365; 96375